=== PATIENT | female | born 1930 | race Caucasian/White ===

== ENCOUNTER → 2016-12-11 | Outpatient (CLI) | payer MEDICARE, BC ==
--- NOTE | 2016-12-11 11:40 | MM ---
Reason for exam: screening (asymptomatic). Last mammogram was performed 1 year and 1 month ago. History: Patient is postmenopausal and has history of endometrial cancer at age 41. Benign excisional biopsy of the right breast. Physical Findings: A clinical breast exam by your physician is recommended on an annual basis and results should be correlated with mammographic findings. MG Screening Mammo w CAD Bilateral CC and MLO view(s) were taken. Prior study comparison: November 21, 2015, bilateral MG screening mammo w CAD. October 04, 2014, bilateral MG screening mammo w CAD. There are scattered fibroglandular densities. Finding: There are typically benign vascular calcifications in both breasts. Asymmetric breast tissue in the right breast posterior position outer quadrant, stable. There is no discrete abnormality. ASSESSMENT: Negative, BI-RAD 1 RECOMMENDATION: Routine screening mammogram of both breasts in 1 year.
== END | disposition home or self-care (01) ==
LOC: RADMAMWWP 10:45
PROVIDERS: ATTEND Internal Medicine
DX: Z12.31 Encounter for screening mammogram for malignant neoplasm of breast (principal)

== ENCOUNTER 2018-01-04 10:05 | Inpatient (IN) | payer MEDICARE, BC ==
[2018-01-04] MEDS ORDERED: SODIUM CHLORIDE 0.9% 500 ML IV STA (10:13)
--- NOTE | 2018-01-04 10:26 | ED ---
General Adult HPI - General Chief complaint: Arrhythmia/Palpitations Stated complaint: Cough, light headed Time Seen by Provider: 01/04/18 10:13 Source: patient, family, RN notes reviewed, old records reviewed Mode of arrival: wheelchair Limitations: no limitations - History of Present Illness Initial comments: 87-year-old female presents for evaluation of lightheadedness and near-syncope. Patient was seen at urgent care, noted to have a high heart rate, and sent to the emergency department for evaluation. Patient does have history of atrial fibrillation, she has had valve repair and history of hypertension. Patient states that she has been feeling lightheaded, for the past several days, she is also had cough productive of white phlegm for the past 2 weeks. She is also had rhinorrhea. She's had subjective fever and chills. No vomiting or diarrhea , she has had decreased appetite and decreased intake over the past 2 weeks as well. - Related Data Home Medications Medication Instructions Recorded Confirmed Lisinopril [Zestril] 10 mg PO DAILY 01/04/18 01/04/18 Metoprolol Succinate [Toprol XL] 25 mg PO BID 01/04/18 01/04/18 Omeprazole 20 mg PO DAILY 01/04/18 01/04/18 Pravastatin Sodium [Pravachol] 40 mg PO DAILY 01/04/18 01/04/18 Promethazine HCl/Codeine 5 ml PO Q8H PRN 01/04/18 01/04/18 [Prometh-Codein 6.25-10 mg/5 ml] Allergies Allergy/AdvReac Type Severity Reaction Status Date / Time No Known Allergies Allergy Verified 01/04/18 11:49 Review of Systems ROS Statement: Those systems with pertinent positive or pertinent negative responses have been documented in the HPI. ROS Other: All systems not noted in ROS Statement are negative. Past Medical History Past Medical History: Atrial Fibrillation History of Any Multi-Drug Resistant Organisms: None Reported Past Psychological History: No Psychological Hx Reported Smoking Status: Former smoker Past Alcohol Use History: None Reported Past Drug Use History: None Reported General Exam Limitations: no limitations General appearance: alert, in no apparent distress Head exam: Present: atraumatic, normocephalic Eye exam: Present: normal appearance, PERRL ENT exam: Present: mucous membranes dry Neck exam: Present: normal inspection. Absent: tenderness, meningismus Respiratory exam: Present: normal lung sounds bilaterally. Absent: respiratory distress, wheezes Cardiovascular Exam: Present: tachycardia, irregular rhythm, systolic murmur GI/Abdominal exam: Present: soft. Absent: distended, tenderness, guarding Extremities exam: Present: normal inspection, normal capillary refill, other ( Left anterior nguyen incision, mild surrounding erythema, no fluctuance or induration). Absent: pedal edema Neurological exam: Present: alert, oriented X3, CN II-XII intact. Absent: motor sensory deficit Psychiatric exam: Present: normal affect, normal mood Skin exam: Present: warm, dry, intact. Absent: cyanosis, diaphoretic Course Vital Signs 01/04/18 01/04/18 01/04/18 10:08 11:24 12:04 Temperature 97.8 F Pulse Rate 132 H 145 H 117 H Respiratory 20 18 18 Rate Blood Pressure 121/75 125/87 145/93 O2 Sat by Pulse 97 99 99 Oximetry EKG Findings - EKG Comments: EKG Findings:: EKG shows atrial fibrillation with RVR, rate of 138, low voltage QRS, no ST segment elevation, QRS duration 78, QTC 463 Medical Decision Making - Medical Decision Making 87-year-old female presenting with palpitations and lightheadedness. Patient found to be in A. fib with RVR, she does have history of atrial fibrillation and is on Coumadin. She has reported some cough and cold symptoms over the past several weeks as well as decreased intake. No significant vomiting or diarrhea. Laboratory studies reveal normal hemoglobin 13.8, white blood cell count normal 8.4, lites within normal limits, creatinine normal. Influenza is negative. INR is supratherapeutic at 5.1, urinalysis clear,, chest x-ray shows bibasilar infiltrate, given the history of cough, she is given IV antibiotics in the emergency department. She is started on Cardizem, Coumadin will be held. Patient will be admitted for further evaluation and treatment. - Lab Data Result diagrams: 01/04/18 10:45 01/04/18 10:45 Lab Results 01/04/18 01/04/18 01/04/18 Range/Units 10:45 10:45 10:45 WBC 8.4 (3.8-10.6) k/uL RBC 5.04 (3.80-5.40) m/uL Hgb 13.9 (11.4-16.0) gm/dL Hct 41.0 (34.0-46.0) % MCV 81.4 (80.0-100.0) fL MCH 27.6 (25.0-35.0) pg MCHC 33.9 (31.0-37.0) g/dL RDW 14.7 (11.5-15.5) % Plt Count 339 (150-450) k/uL Neutrophils % 78 % Lymphocytes % 16 % Monocytes % 4 % Eosinophils % 0 % Basophils % 0 % Neutrophils # 6.5 (1.3-7.7) k/uL Lymphocytes # 1.4 (1.0-4.8) k/uL Monocytes # 0.3 (0-1.0) k/uL Eosinophils # 0.0 (0-0.7) k/uL Basophils # 0.0 (0-0.2) k/uL PT (9.0-12.0) sec INR (<1.2) APTT (22.0-30.0) sec Sodium 142 (137-145) mmol/L Potassium 4.1 (3.5-5.1) mmol/L Chloride 109 H (98-107) mmol/L Carbon Dioxide 23 (22-30) mmol/L Anion Gap 10 mmol/L BUN 26 H (7-17) mg/dL Creatinine 0.80 (0.52-1.04) mg/dL Est GFR (CKD-EPI)AfAm 78 (>60 ml/min/1.73 sqM) Est GFR (CKD-EPI)NonAf 68 (>60 ml/min/1.73 sqM) Glucose 116 H (74-99) mg/dL Plasma Lactic Acid Cristofer (0.7-2.0) mmol/L Calcium 9.3 (8.4-10.2) mg/dL Magnesium 1.6 (1.6-2.3) mg/dL Total Bilirubin 0.4 (0.2-1.3) mg/dL AST 29 (14-36) U/L ALT 30 (9-52) U/L Alkaline Phosphatase 65 (38-126) U/L Total Creatine Kinase 97 (30-135) U/L CK-MB (CK-2) 1.5 (0.0-2.4) ng/mL CK-MB (CK-2) Rel Index 1.5 Troponin I 0.028 (0.000-0.034) ng/mL Total Protein 6.2 L (6.3-8.2) g/dL Albumin 3.6 (3.5-5.0) g/dL TSH 1.400 (0.465-4.680) mIU/L Urine Color Urine Appearance (Clear) Urine pH (5.0-8.0) Ur Specific [place] (1.001-1.035) Urine Protein (Negative) Urine Glucose (UA) (Negative) Urine Ketones (Negative) Urine Blood (Negative) Urine Nitrite (Negative) Urine Bilirubin (Negative) Urine Urobilinogen (<2.0) mg/dL Ur Leukocyte Esterase (Negative) Urine RBC (0-5) /hpf Ur Squamous Epith Cells (0-4) /hpf Urine Bacteria (None) /hpf Hyaline Casts (0-2) /lpf Urine Mucus (None) /hpf Influenza Type A RNA (Not Detectd) Influenza Type B (PCR) (Not Detectd) 01/04/18 01/04/18 01/04/18 Range/Units 10:45 10:45 10:45 WBC (3.8-10.6) k/uL RBC (3.80-5.40) m/uL Hgb (11.4-16.0) gm/dL Hct (34.0-46.0) % MCV (80.0-100.0) fL MCH (25.0-35.0) pg MCHC (31.0-37.0) g/dL RDW (11.5-15.5) % Plt Count (150-450) k/uL Neutrophils % % Lymphocytes % % Monocytes % % Eosinophils % % Basophils % % Neutrophils # (1.3-7.7) k/uL Lymphocytes # (1.0-4.8) k/uL Monocytes # (0-1.0) k/uL Eosinophils # (0-0.7) k/uL Basophils # (0-0.2) k/uL PT 46.0 H (9.0-12.0) sec INR 5.1 H* (<1.2) APTT 34.1 H (22.0-30.0) sec Sodium (137-145) mmol/L Potassium (3.5-5.1) mmol/L Chloride (98-107) mmol/L Carbon Dioxide (22-30) mmol/L Anion Gap mmol/L BUN (7-17) mg/dL Creatinine (0.52-1.04) mg/dL Est GFR (CKD-EPI)AfAm (>60 ml/min/1.73 sqM) Est GFR (CKD-EPI)NonAf (>60 ml/min/1.73 sqM) Glucose (74-99) mg/dL Plasma Lactic Acid Cristofer 1.1 (0.7-2.0) mmol/L Calcium (8.4-10.2) mg/dL Magnesium (1.6-2.3) mg/dL Total Bilirubin (0.2-1.3) mg/dL AST (14-36) U/L ALT (9-52) U/L Alkaline Phosphatase (38-126) U/L Total Creatine Kinase (30-135) U/L CK-MB (CK-2) (0.0-2.4) ng/mL CK-MB (CK-2) Rel Index Troponin I (0.000-0.034) ng/mL Total Protein (6.3-8.2) g/dL Albumin (3.5-5.0) g/dL TSH (0.465-4.680) mIU/L Urine Color Urine Appearance (Clear) Urine pH (5.0-8.0) Ur Specific [place] (1.001-1.035) Urine Protein (Negative) Urine Glucose (UA) (Negative) Urine Ketones (Negative) Urine Blood (Negative) Urine Nitrite (Negative) Urine Bilirubin (Negative) Urine Urobilinogen (<2.0) mg/dL Ur Leukocyte Esterase (Negative) Urine RBC (0-5) /hpf Ur Squamous Epith Cells (0-4) /hpf Urine Bacteria (None) /hpf Hyaline Casts (0-2) /lpf Urine Mucus (None) /hpf Influenza Type A RNA Not Detected (Not Detectd) Influenza Type B (PCR) Not Detected (Not Detectd) 01/04/18 Range/Units 11:15 WBC (3.8-10.6) k/uL RBC (3.80-5.40) m/uL Hgb (11.4-16.0) gm/dL Hct (34.0-46.0) % MCV (80.0-100.0) fL MCH (25.0-35.0) pg MCHC (31.0-37.0) g/dL RDW (11.5-15.5) % Plt Count (150-450) k/uL Neutrophils % % Lymphocytes % % Monocytes % % Eosinophils % % Basophils % % Neutrophils # (1.3-7.7) k/uL Lymphocytes # (1.0-4.8) k/uL Monocytes # (0-1.0) k/uL Eosinophils # (0-0.7) k/uL Basophils # (0-0.2) k/uL PT (9.0-12.0) sec INR (<1.2) APTT (22.0-30.0) sec Sodium (137-145) mmol/L Potassium (3.5-5.1) mmol/L Chloride (98-107) mmol/L Carbon Dioxide (22-30) mmol/L Anion Gap mmol/L BUN (7-17) mg/dL Creatinine (0.52-1.04) mg/dL Est GFR (CKD-EPI)AfAm (>60 ml/min/1.73 sqM) Est GFR (CKD-EPI)NonAf (>60 ml/min/1.73 sqM) Glucose (74-99) mg/dL Plasma Lactic Acid Cristofer (0.7-2.0) mmol/L Calcium (8.4-10.2) mg/dL Magnesium (1.6-2.3) mg/dL Total Bilirubin (0.2-1.3) mg/dL AST (14-36) U/L ALT (9-52) U/L Alkaline Phosphatase (38-126) U/L Total Creatine Kinase (30-135) U/L CK-MB (CK-2) (0.0-2.4) ng/mL CK-MB (CK-2) Rel Index Troponin I (0.000-0.034) ng/mL Total Protein (6.3-8.2) g/dL Albumin (3.5-5.0) g/dL TSH (0.465-4.680) mIU/L Urine Color Yellow Urine Appearance Cloudy H (Clear) Urine pH 5.5 (5.0-8.0) Ur Specific [place] 1.022 (1.001-1.035) Urine Protein 1+ H (Negative) Urine Glucose (UA) Negative (Negative) Urine Ketones Negative (Negative) Urine Blood Trace H (Negative) Urine Nitrite Negative (Negative) Urine Bilirubin Negative (Negative) Urine Urobilinogen 2.0 (<2.0) mg/dL Ur Leukocyte Esterase Small H (Negative) Urine RBC 4 (0-5) /hpf Ur Squamous Epith Cells 2 (0-4) /hpf Urine Bacteria Rare H (None) /hpf Hyaline Casts 34 H (0-2) /lpf Urine Mucus Many H (None) /hpf Influenza Type A RNA (Not Detectd) Influenza Type B (PCR) (Not Detectd) Critical Care Time Critical Care Time: Yes Total Critical Care Time: 35 Disposition Clinical Impression: Atrial fibrillation with RVR Disposition: ADMITTED IP TO THIS [facility] Condition: Stable Referrals: Barbara Rogers MD [Primary Care Provider] - 1-2 days Decision to Admit Reason: Admit from EC Decision Date: 01/04/18 Decision Time: 12:09
[2018-01-04 10:57] LABS: Basophils % (A) 0 %; HGB 13.9 gm/dL (11.4-16.0); Lymphocytes # (A) 1.4 k/uL (1.0-4.8)
[2018-01-04 11:08] LABS: Eosinophils % (A) 0 %; Lymphocytes % (A) 16 %; MCH 27.6 pg (25.0-35.0); MCHC 33.9 g/dL (31.0-37.0); MCV 81.4 fL (80.0-100.0); Mean Platelet Volume 6.3; Monocytes # (A) 0.3 k/uL (0-1.0); Monocytes % (A) 4 %; Neutrophils # (A) 6.5 k/uL (1.3-7.7); Neutrophils % (A) 78 %; Platelet Count 339 k/uL (150-450); RBC 5.04 m/uL (3.80-5.40); RDW 14.7 % (11.5-15.5); WBC 8.4 k/uL (3.8-10.6)
[2018-01-04 11:09] LABS: Albumin 3.6 g/dL (3.5-5.0); Calcium 9.3 mg/dL (8.4-10.2); Magnesium 1.6 mg/dL (1.6-2.3); Potassium 4.1 mmol/L (3.5-5.1); Total Bilirubin 0.4 mg/dL (0.2-1.3); Total Protein 6.2 g/dL (6.3-8.2)
[2018-01-04] MEDS ORDERED: DILTIAZEM 50 MG in SODIUM CHLORIDE 0.9% 40 ML IV ONE (11:15)
--- NOTE | 2018-01-04 11:18 | XR ---
EXAMINATION TYPE: XR chest 2V DATE OF EXAM: 01/04/2018 COMPARISON: Chest x-ray April 22, 2012 HISTORY: Dysrhythmia. TECHNIQUE: Frontal and lateral views of the chest are obtained. FINDINGS: There is chronic parenchymal change with new patchy left greater than right bibasilar atel ectasis and/or infiltrate. No large pleural effusion or pneumothorax is seen bilaterally. The cardiac silhouette size is enlarged with atherosclerotic and slightly ectatic thoracic aorta. Overlying heide rnal wires are redemonstrated. There is metallic cardiac valvular ring again seen. The osseous struct ures remain demineralized. IMPRESSION: Cardiomegaly and chronic changes with new patchy bibasilar atelectasis and/or infiltrate .
[2018-01-04] MEDS: SODIUM CHLORIDE 0.9% 1,000 ML IV SCH (11:22)
[2018-01-04] MEDS: DILTIAZEM 5 MG/ML 5 ML VIAL IVP STA ×2 (11:24→12:01)
[2018-01-04 11:29] LABS: Creatine Kinase MB 1.5 ng/mL (0.0-2.4); Troponin I 0.028 ng/mL (0.000-0.034)
[2018-01-04 11:29] LABS: Appearance,Urine Cloudy (Clear); Bacteria,Urine Rare /hpf; Bilirubin,Urine Negative (Negative); Blood,Urine Trace (Negative); Color,Urine Yellow; Glucose,Urine (UA) Negative (Negative); Hyaline Casts,Urine 34 /lpf (0-2); Ketones,Urine Negative (Negative); Leukocyte Esterase,Urine Small (Negative); Mucus,Urine Many /hpf; Nitrite,Urine Negative (Negative); PH, Urine 5.5 (5.0-8.0); Protein,Urine 1+ (Negative); RBC,Urine 4 /hpf (0-5); Specific Gravity,Urine 1.022 (1.001-1.035); Squamous Epithelial Cell,Urine 2 /hpf (0-4)
[2018-01-04] MEDS ORDERED: DILTIAZEM IV ONE (11:30)
[2018-01-04] MEDS ORDERED: SODIUM CHLORIDE 0.9% IV ONE (11:30)
[2018-01-04 11:34] LABS: Partial Thromboplastin Time 34.1 sec (22.0-30.0)
[2018-01-04 11:35] LABS: INR 5.1 (<1.2)
[2018-01-04] MEDS ORDERED: CEFEPIME 2 GM in SODIUM CHLORIDE 0.9% 50 ML IVPB STA (11:46)
[2018-01-04] MEDS ORDERED: AZITHROMYCIN 500 MG in SODIUM CHLORIDE 0.9% 250 ML IVPB STA (11:46)
[2018-01-04] MEDS ORDERED: NALOXONE 0.4 MG/ML 1 ML VIAL IV PRN (12:04)
[2018-01-04] MEDS ORDERED: METOPROLOL SUCCINATE (ER) 25 MG TAB.ER.24H PO STA (14:20)
[2018-01-04 19:56] VITALS: BMI 23.6
[2018-01-04] MEDS: METOPROLOL SUCCINATE (ER) 25 MG TAB.ER.24H PO SCH (21:17)
[2018-01-05] MEDS: SODIUM CHLORIDE 0.9% 1,000 ML IV SCH (00:54)
[2018-01-05 06:34] LABS: Basophils # (A) 0.1 k/uL (0-0.2); Basophils % (A) 1 %; Eosinophils # (A) 0.2 k/uL (0-0.7); Eosinophils % (A) 3 %; HCT 39.2 % (34.0-46.0); HGB 13.2 gm/dL (11.4-16.0); Lymphocytes # (A) 1.8 k/uL (1.0-4.8); Lymphocytes % (A) 23 %; MCH 27.6 pg (25.0-35.0); MCHC 33.7 g/dL (31.0-37.0); MCV 81.8 fL (80.0-100.0); Mean Platelet Volume 6.1; Monocytes # (A) 0.4 k/uL (0-1.0); Monocytes % (A) 5 %; Neutrophils # (A) 5.2 k/uL (1.3-7.7); Neutrophils % (A) 67 %; Platelet Count 284 k/uL (150-450); RBC 4.79 m/uL (3.80-5.40); RDW 14.8 % (11.5-15.5); WBC 7.7 k/uL (3.8-10.6)
[2018-01-05 06:36] LABS: INR 3.7 (<1.2); Prothrombin Time 32.9 sec (9.0-12.0)
[2018-01-05 07:08] LABS: ALT 26 U/L (9-52); AST 27 U/L (14-36); Albumin 3.2 g/dL (3.5-5.0); Alkaline Phosphatase 61 U/L (38-126); Anion Gap 6 mmol/L; Blood Urea Nitrogen 18 mg/dL (7-17); Calcium 8.7 mg/dL (8.4-10.2); Carbon Dioxide 25 mmol/L (22-30); Chloride 108 mmol/L (98-107); Glucose 101 mg/dL (74-99); Sodium 139 mmol/L (137-145); Total Bilirubin 0.5 mg/dL (0.2-1.3); Total Protein 5.7 g/dL (6.3-8.2)
--- NOTE | 2018-01-05 09:44 | P.CRDCN ---
History of Present Illness History of present illness: Patient is an 87-year-old very pleasant lady who did not feel right yesterday and was very dizzy. She did not feel palpitations chest pain and denied shortness of breath at that time. She was found to be in atrial fibrillation with RVR Past history of atrial fibrillation, valve repair, hypertension Mild bronchitis like symptoms recently and rhinorrhea Review of systems: + fever chills or rigors, no cough, phlegm or expectoration, no nausea, vomiting or diarrhea, no hematuria, dysuria, no musculoskeletal complaints, no strokes or seizures, no skin lesions. Dictation list was reviewed and includes metoprolol succinate 25 mg twice daily lisinopril Pravachol NO KNOWN DRUG ALLERGIES Past medical history of atrial fibrillation On examination her blood pressure is normal 121/75 mmHg pulse rate was 132 beats a minute 145 beats a minute and twelve-lead ECG confirmed atrial fibrillation with RVR Respirations are normal at this time but pressure is 156/94 minutes of mercury she is afebrile And neck examination is normal no JVD no thyromegaly Heart sounds S1 and S2 are normal Sounds are clear no rhonchi no crackles Abdomen is soft nontender Extremities warm no edema Twelve-lead ECG shows atrial fibrillation with RVR 1:30 beats a minute Labs are reviewed. Hemoglobin 13.2, INR 5.1 today 3.7 electrolytes are normal BUN/creatinine is normal him a TSH normal Impression Symptomatic paroxysmal atrial fibrillation with RVR despite beta rick therapy , total of 50 mg a day of Toprol Suggest increase to 50 mrem twice daily and observe on telemetry If she has no evidence for coronary artery disease in the past and has stresses was normal one could consider treating her with flecainide because she was very symptomatic and was presyncopal Past Medical History Past Medical History: Atrial Fibrillation History of Any Multi-Drug Resistant Organisms: None Reported Additional Past Surgical History / Comment(s): Valve repair Dec 13, 2015 Past Psychological History: No Psychological Hx Reported Smoking Status: Never smoker Past Alcohol Use History: None Reported Past Drug Use History: None Reported Medications and Allergies Home Medications Medication Instructions Recorded Confirmed Type Lisinopril [Zestril] 10 mg PO DAILY 01/04/18 01/04/18 History Metoprolol Succinate [Toprol XL] 25 mg PO BID 01/04/18 01/04/18 History Omeprazole 20 mg PO DAILY 01/04/18 01/04/18 History Pravastatin Sodium [Pravachol] 40 mg PO DAILY 01/04/18 01/04/18 History Promethazine HCl/Codeine 5 ml PO Q8H PRN 01/04/18 01/04/18 History [Prometh-Codein 6.25-10 mg/5 ml] Allergies Allergy/AdvReac Type Severity Reaction Status Date / Time No Known Allergies Allergy Verified 01/04/18 11:49 Physical Exam Vitals: Vital Signs Temp Pulse Pulse Resp BP BP Pulse Ox 01/05/18 04:00 84 16 156/94 92 L 01/05/18 00:00 97.2 F L 75 16 158/90 94 L 01/04/18 20:00 93 18 01/04/18 18:55 97.1 F L 93 18 137/88 94 L 01/04/18 18:26 97.7 F 78 18 133/70 94 L 01/04/18 16:04 82 18 137/76 95 01/04/18 14:17 94 18 144/88 99 01/04/18 13:10 97.7 F 127 H 18 139/96 95 01/04/18 12:04 117 H 18 145/93 99 01/04/18 11:24 145 H 18 125/87 99 01/04/18 10:08 97.8 F 132 H 20 121/75 97 Intake and Output 01/04/18 01/05/18 01/05/18 21:59 06:59 14:59 Intake Total Balance Intake: Intake, IV Titration Amount Sodium Chloride 0.9% 1, 000 ml @ 75 mls/hr IV . [id number] [facility] Rx#:[id number] Oral Other: Weight Results 01/05/18 05:58 01/05/18 05:58 Cardiac Enzymes 01/04/18 01/04/18 01/05/18 Range/Units 10:45 10:45 05:58 AST 29 27 (14-36) U/L CK-MB (CK-2) 1.5 (0.0-2.4) ng/mL Troponin I 0.028 (0.000-0.034) ng/mL Coagulation 01/04/18 01/05/18 Range/Units 10:45 05:58 PT 46.0 H 32.9 H (9.0-12.0) sec APTT 34.1 H (22.0-30.0) sec CBC 01/04/18 01/05/18 Range/Units 10:45 05:58 WBC 8.4 7.7 (3.8-10.6) k/uL RBC 5.04 4.79 (3.80-5.40) m/uL Hgb 13.9 13.2 (11.4-16.0) gm/dL Hct 41.0 39.2 (34.0-46.0) % Plt Count 339 284 (150-450) k/uL Comprehensive Metabolic Panel 01/04/18 01/05/18 Range/Units 10:45 05:58 Sodium 142 139 (137-145) mmol/L Potassium 4.1 4.0 (3.5-5.1) mmol/L Chloride 109 H 108 H (98-107) mmol/L Carbon Dioxide 23 25 (22-30) mmol/L BUN 26 H 18 H (7-17) mg/dL Creatinine 0.80 0.70 (0.52-1.04) mg/dL Glucose 116 H 101 H (74-99) mg/dL Calcium 9.3 8.7 (8.4-10.2) mg/dL AST 29 27 (14-36) U/L ALT 30 26 (9-52) U/L Alkaline Phosphatase 65 61 (38-126) U/L Total Protein 6.2 L 5.7 L (6.3-8.2) g/dL Albumin 3.6 3.2 L (3.5-5.0) g/dL Current Medications Generic Name Dose Route Start Last Admin Trade Name Freq PRN Reason Stop Dose Admin Sodium Chloride 1,000 mls @ 75 mls/hr 01/04/18 10:45 01/05/18 00:54 Saline 0.9% IV Not Given .[id number] NELL Metoprolol Succinate 25 mg 01/04/18 21:00 01/04/18 21:17 Toprol Xl PO 25 mg BID NELL Administration Naloxone HCl 0.2 mg 01/04/18 12:04 Narcan IV Q2M PRN Opioid Reversal Pravastatin Sodium 40 mg 01/05/18 09:00 Pravachol PO DAILY NELL Intake and Output 01/04/18 01/05/18 01/05/18 21:59 06:59 14:59 Intake Total Balance Intake: Intake, IV Titration Amount Sodium Chloride 0.9% 1, 000 ml @ 75 mls/hr IV . [id number] [facility] Rx#:[id number] Oral Other: Weight 01/05/18 05:58 01/05/18 05:58
[2018-01-05] MEDS: PRAVASTATIN SODIUM 40 MG TAB PO SCH (09:57)
--- NOTE | 2018-01-05 10:57 | P.HPIM ---
History of Present Illness H&P Date: 01/05/18 Jose Ann a 87-year-old female who presented to [facility] emergency room with a chief complaint of lightheadedness and near- syncope. Patient was seen at urgent care, noted to have a high heart rate, and was sent to the emergency department for evaluation. Patient does have history of atrial fibrillation, she has had valve repair she is unaware which valve it was, she stated that surgery was done at this hospital [address] Gigi Lima she states that she had a stress test prior to surgery. Patient had an upper respiratory infection 2 weeks ago she was complaining of cough and nasal and sinus congestion, she denies any nausea or vomiting no abdominal pain no diarrhea and no urinary symptoms. Past Medical History Past Medical History: Atrial Fibrillation History of Any Multi-Drug Resistant Organisms: None Reported Additional Past Surgical History / Comment(s): Valve repair Dec 13, 2015 Past Psychological History: No Psychological Hx Reported Smoking Status: Never smoker Past Alcohol Use History: None Reported Past Drug Use History: None Reported Medications and Allergies Home Medications Medication Instructions Recorded Confirmed Type Lisinopril [Zestril] 10 mg PO DAILY 01/04/18 01/04/18 History Metoprolol Succinate [Toprol XL] 25 mg PO BID 01/04/18 01/04/18 History Omeprazole 20 mg PO DAILY 01/04/18 01/04/18 History Pravastatin Sodium [Pravachol] 40 mg PO DAILY 01/04/18 01/04/18 History Promethazine HCl/Codeine 5 ml PO Q8H PRN 01/04/18 01/04/18 History [Prometh-Codein 6.25-10 mg/5 ml] Allergies Allergy/AdvReac Type Severity Reaction Status Date / Time No Known Allergies Allergy Verified 01/04/18 11:49 Physical Exam Vitals: Vital Signs Temp Pulse Pulse Resp BP BP Pulse Ox 01/05/18 04:00 84 16 156/94 92 L 01/05/18 00:00 97.2 F L 75 16 158/90 94 L 01/04/18 20:00 93 18 01/04/18 18:55 97.1 F L 93 18 137/88 94 L 01/04/18 18:26 97.7 F 78 18 133/70 94 L 01/04/18 16:04 82 18 137/76 95 03/10/18 14:17 94 18 144/88 99 01/04/18 13:10 97.7 F 127 H 18 139/96 95 01/04/18 12:04 117 H 18 145/93 99 01/04/18 11:24 145 H 18 125/87 99 01/04/18 10:08 97.8 F 132 H 20 121/75 97 Intake and Output 01/04/18 01/05/18 01/05/18 21:59 06:59 14:59 Intake Total Balance Intake: Intake, IV Titration Amount Sodium Chloride 0.9% 1, 000 ml @ 75 mls/hr IV . [id number] [facility] Rx#:[id number] Oral Other: Weight In general patient is alert and oriented 3 in no apparent distress HEENT head normocephalic and atraumatic Neck is supple no JVD no goiter no lymphadenopathy Chest exam reveals a few scattered crackles no wheezing Cardiac exam reveals regular heart sounds S1 and S2 no gallops no murmurs Abdomen is soft nontender no organomegaly Extremity exam reveals no edema no cyanosis or clubbing Neurological examination reveals no gross focal deficits Results CBC & Chem 7: 01/05/18 05:58 01/05/18 05:58 Labs: Abnormal Lab Results - Last 24 Hours (Table) 01/04/18 01/04/18 01/04/18 Range/Units 10:45 10:45 11:15 PT 46.0 H (9.0-12.0) sec INR 5.1 H* (<1.2) APTT 34.1 H (22.0-30.0) sec Chloride 109 H (98-107) mmol/L BUN 26 H (7-17) mg/dL Glucose 116 H (74-99) mg/dL Total Protein 6.2 L (6.3-8.2) g/dL Albumin (3.5-5.0) g/dL Urine Appearance Cloudy H (Clear) Urine Protein 1+ H (Negative) Urine Blood Trace H (Negative) Ur Leukocyte Esterase Small H (Negative) Urine Bacteria Rare H (None) /hpf Hyaline Casts 34 H (0-2) /lpf Urine Mucus Many H (None) /hpf 01/05/18 01/05/18 Range/Units 05:58 05:58 PT 32.9 H (9.0-12.0) sec INR 3.7 H (<1.2) APTT (22.0-30.0) sec Chloride 108 H (98-107) mmol/L BUN 18 H (7-17) mg/dL Glucose 101 H (74-99) mg/dL Total Protein 5.7 L (6.3-8.2) g/dL Albumin 3.2 L (3.5-5.0) g/dL Urine Appearance (Clear) Urine Protein (Negative) Urine Blood (Negative) Ur Leukocyte Esterase (Negative) Urine Bacteria (None) /hpf Hyaline Casts (0-2) /lpf Urine Mucus (None) /hpf Thrombosis Risk Factor Assmnt - Choose All That Apply Any of the Below Risk Factors Present?: No Assessment and Plan Plan: #1 atrial fibrillation with rapid ventricular response #2 dizziness and lightheadedness with presyncope probably related to #1 #3 history of valve repair surgery done in this hospital [address] Gigi Lima per patient and fortunately records are not available in the computer system will try to obtain records. #4 no history of coronary artery disease per patient, her last stress test was done 6 years ago prior to her valve surgery #5 history of hypertension #6 history of hyperlipidemia #7 coagulopathy with Coumadin therapy will adjust Coumadin dose during this admission #8 recent upper respiratory infection
[2018-01-05] MEDS: PANTOPRAZOLE 40 MG TABLET PO SCH (12:49)
[2018-01-05] MEDS: cefTRIAXone IN SWFI 1,000 MG/10 ML SYRINGE IVP SCH (12:49)
[2018-01-05] MEDS: LISINOPRIL 10 MG TAB PO SCH (12:49)
[2018-01-05] MEDS: AZITHROMYCIN 500 MG in SODIUM CHLORIDE 0.9% 250 ML IVPB SCH (14:47)
[2018-01-05] MEDS: METOPROLOL SUCCINATE (ER) 50 MG TAB.ER.24H PO SCH (19:38)
[2018-01-06] MEDS ORDERED: LISINOPRIL 5 MG TAB PO STA (00:06)
[2018-01-06] MEDS: METOPROLOL SUCCINATE (ER) 25 MG TAB.ER.24H PO SCH (04:25)
[2018-01-06 06:16] LABS: Basophils % (A) 1 %; Eosinophils # (A) 0.3 k/uL (0-0.7); Eosinophils % (A) 4 %; HCT 42.6 % (34.0-46.0); HGB 14.1 gm/dL (11.4-16.0); Lymphocytes # (A) 1.7 k/uL (1.0-4.8); Lymphocytes % (A) 24 %; MCH 27.1 pg (25.0-35.0); MCHC 33.1 g/dL (31.0-37.0); MCV 81.8 fL (80.0-100.0); Mean Platelet Volume 6.2; Monocytes # (A) 0.4 k/uL (0-1.0); Monocytes % (A) 6 %; Neutrophils # (A) 4.6 k/uL (1.3-7.7); Neutrophils % (A) 65 %; Platelet Count 297 k/uL (150-450); RBC 5.21 m/uL (3.80-5.40); RDW 14.6 % (11.5-15.5); WBC 7.1 k/uL (3.8-10.6)
[2018-01-06 06:23] LABS: INR 2.2 (<1.2); Prothrombin Time 19.6 sec (9.0-12.0)
[2018-01-06 06:32] LABS: Albumin 3.2 g/dL (3.5-5.0); Calcium 8.9 mg/dL (8.4-10.2); Potassium 4.5 mmol/L (3.5-5.1); Total Bilirubin 0.4 mg/dL (0.2-1.3); Total Protein 5.8 g/dL (6.3-8.2)
[2018-01-06] MEDS: PANTOPRAZOLE 40 MG TABLET PO SCH (06:45)
[2018-01-06] MEDS: PRAVASTATIN SODIUM 40 MG TAB PO SCH (08:37)
[2018-01-06] MEDS: LISINOPRIL 10 MG TAB PO SCH (08:37)
[2018-01-06] MEDS: METOPROLOL SUCCINATE (ER) 50 MG TAB.ER.24H PO SCH (08:37)
[2018-01-06] MEDS: cefTRIAXone IN SWFI 1,000 MG/10 ML SYRINGE IVP SCH (08:46)
[2018-01-06] MEDS: AZITHROMYCIN 500 MG in SODIUM CHLORIDE 0.9% 250 ML IVPB SCH (08:46)
[2018-01-06 10:56] VITALS: RESP 18
--- NOTE | 2018-01-06 13:17 | P.DS ---
Providers Date of admission: 01/04/18 12:04 Expected date of discharge: 01/06/18 Attending physician: Barbara Rogers Consults: 01/04/18 13:24 Consult Physician Routine Consulting Provider: Justen Leal Consult Reason/Comments: A Fib Do you want consulting provider notified?: Yes Primary care physician: [facility] Course: Discharge diagnosis #1 atrial fibrillation with rapid ventricular response: Seen evaluated by cardiology. They have increased her metoprolol to 50 mg twice a day. Continue with Coumadin. Coumadin dose adjusted during this admission due to coagulopathy. INR at discharge is 2.2. Will give Coumadin 2.5 mg daily. Recommend checking PT/INR in 3 days #2 dizziness and lightheadedness with presyncope probably related to #1 #3 history of valve repair surgery done in this hospital [address] Gigi Lima per patient and fortunately records are not available in the computer system will try to obtain records. #4 no history of coronary artery disease per patient, her last stress test was done 6 years ago prior to her valve surgery #5 history of hypertension #6 history of hyperlipidemia #7 coagulopathy with Coumadin therapy will adjust Coumadin dose during this admission #8 possible community-acquired pneumonia: Patient's symptoms improving with Rocephin and azithromycin. Patient will be discharged home with Ceftin 500 mg twice a day for 5 more days Hospital course Jose Ann a 87-year-old female who presented to [facility] emergency room with a chief complaint of lightheadedness and near- syncope. Patient was seen at urgent care, noted to have a high heart rate, and was sent to the emergency department for evaluation. Patient does have history of atrial fibrillation, she has had valve repair she is unaware which valve it was, she stated that surgery was done at this hospital [address] Gigi Lima she states that she had a stress test prior to surgery. Patient had an upper respiratory infection 2 weeks ago she was complaining of cough and nasal and sinus congestion, she denies any nausea or vomiting no abdominal pain no diarrhea and no urinary symptoms. Patient was initially placed on IV Cardizem drip. Patient seen evaluated by cardiology. They discontinue Cardizem drip and place patient on metoprolol 50 mg twice a day. Patient is currently in sinus rhythm. Heart rate is controlled. Cardiology has seen evaluated patient this morning and cleared her for discharge. Patient will continue Ceftin for possible pneumonia. Her cough and symptoms improved. Her influenza screen was negative. Patient is medical stable for discharge and his been cleared by cardiology for discharge. She has been up and ambulating without any dizziness or lightheadedness. I performed an examination of the patient and discussed their management with the physician Pay Station Department Manager. I have reviewed the Physician Pay Station Department Manager's notes and agree with the documented findings and plan of care Patient Condition at Discharge: Stable Plan - Discharge Summary Discharge Rx Participant: Yes New Discharge Prescriptions: New Cefuroxime Axetil [Ceftin] 500 mg PO BID #10 tab Metoprolol Succinate (ER) [Toprol XL] 50 mg PO BID #60 tab.er.24h Warfarin Sodium [Coumadin] 2.5 mg PO DAILY #30 tablet Continue Pravastatin Sodium [Pravachol] 40 mg PO DAILY Omeprazole 20 mg PO DAILY Lisinopril [Zestril] 10 mg PO DAILY Promethazine HCl/Codeine [Prometh-Codein 6.25-10 mg/5 ml] 5 ml PO Q8H PRN PRN Reason: Cough Discontinued Metoprolol Succinate [Toprol XL] 25 mg PO BID Discharge Medication List Lisinopril [Zestril] 10 mg PO DAILY 01/04/18 [History] Omeprazole 20 mg PO DAILY 01/04/18 [History] Pravastatin Sodium [Pravachol] 40 mg PO DAILY 01/04/18 [History] Promethazine HCl/Codeine [Prometh-Codein 6.25-10 mg/5 ml] 5 ml PO Q8H PRN [History] Cefuroxime Axetil [Ceftin] 500 mg PO BID #10 tab 01/06/18 [Rx] Metoprolol Succinate (ER) [Toprol XL] 50 mg PO BID #60 tab.er.24h 01/06/18 [Rx] Warfarin Sodium [Coumadin] 2.5 mg PO DAILY #30 tablet 01/06/18 [Rx] Follow up Appointment(s)/Referral(s): Justen Leal MD [STAFF PHYSICIAN] - 01/23/18 11:00 am (Please keep previous appointment.) Barbara Rogers MD [Primary Care Provider] - 01/10/18 10:30 am Patient Instructions/Handouts: A-fib (Atrial Fibrillation) (DC), Upper Respiratory Infection (DC), Vitamin K in Foods (DC), Hypomagnesemia (DC), Safe Use of Anticoagulants (DC) Activity/Diet/Wound Care/Special Instructions: Diet: cardiac Activity: as tolerated Discharge Disposition: HOME SELF-CARE
--- NOTE | 2018-01-06 14:09 | P.PN ---
Subjective Patient is doing well. She maintains sinus rhythm. She has no symptoms of chest pain dizziness or lightheadedness. She is ambulating around the room She is afebrile 98.3F, blood pressure 125/91 mmHg pulse in the 70s and 80s Breath sounds are clear no rhonchi no crackles Heart sounds S1 and S2 are normal no murmurs or gallops or rub Extremities is warm no edema Impression Paroxysmal atrial fibrillation with RVR, symptomatic 1 episode Suggest continue current medications for now if this becomes recurrent and antiarrhythmic therapy may be considered Objective - Vital Signs Vital signs: Vital Signs Temp 98.3 F 01/06/18 08:20 Pulse 84 01/06/18 08:20 Resp 18 01/06/18 08:20 BP 125/91 01/06/18 08:20 Pulse Ox 92 L 01/06/18 08:20 Intake & Output 01/05/18 01/06/18 01/06/18 18:59 06:59 18:59 Intake Total 720 200 360 Balance 720 200 360 Weight 65.1 kg Intake: Oral 720 200 360 Other: # Voids 2 2 2 - Labs CBC & Chem 7: 01/06/18 05:39 01/06/18 05:39 Labs: Abnormal Lab Results - Last 24 Hours (Table) 01/06/18 01/06/18 Range/Units 05:39 05:39 PT 19.6 H (9.0-12.0) sec INR 2.2 H (<1.2) BUN 21 H (7-17) mg/dL Glucose 100 H (74-99) mg/dL Total Protein 5.8 L (6.3-8.2) g/dL Albumin 3.2 L (3.5-5.0) g/dL Microbiology - Last 24 Hours (Table) 01/04/18 10:45 Blood Culture - Preliminary Blood No Growth after 48 hours
[2018-01-06 14:29] VITALS: BP 174/96; PULSE 79; TEMP 97.2
[2018-01-07] MEDS ORDERED: AZITHROMYCIN 500 MG TAB PO SCH (09:00)
== END 2018-01-06 14:25 | disposition home or self-care (01) | DRG 308 ==
LOC: EC 10:05 → 6SEL 12:04
PROVIDERS: ADMIT Internal Medicine; ATTEND Internal Medicine
DX: I48.0 Paroxysmal atrial fibrillation (principal); J18.9 Pneumonia, unspecified organism; E78.5 Hyperlipidemia, unspecified; I10 Essential (primary) hypertension; R79.1 Abnormal coagulation profile; Z79.01 Long term (current) use of anticoagulants; Z79.899 Other long term (current) drug therapy; Z87.891 Personal history of nicotine dependence
CPT/HCPCS: 36415; 71046; 80053; 81001; 82550; 82553; 83605; 83735; 84443; 84484; 85025; 85610; 85730; 87040; 87502; 93005; 96361; 96365; 96366; 96367; 96376; 99291

== ENCOUNTER → 2018-07-22 | Outpatient (CLI) | payer MEDICARE, BC ==
[2018-07-22 12:14] LABS: Prothrombin Time 45.2 sec (9.0-12.0)
== END ==
LOC: LABWHC1 11:04
PROVIDERS: ATTEND Internal Medicine Cardiovascular Disease
DX: I48.0 Paroxysmal atrial fibrillation (principal)
CPT/HCPCS: 36415; 85610

== ENCOUNTER 2019-02-02 10:10 | Inpatient (IN) | payer MEDICARE, BC ==
--- NOTE | 2019-02-02 11:06 | ED ---
Fever HPI - General Chief Complaint: Fever Stated Complaint: CHRISTA Time Seen by Provider: 02/02/19 10:42 Source: patient, family Mode of arrival: ambulatory Limitations: no limitations - History of Present Illness Initial Comments: 88yo female with past history of hyperlipidemia, atrial fibrillation, hypertension presenting for fever cough, shortness of breath. Patient states she has had congestion and cough since Saturday. She states she is short of b reath when she coughs, patient also states with walking longer distances she also becomes lightheaded and slightly short of breath. Patient states she developed a fever yesterday as well as chills and decreased energy. Patient states she has had pneumonia in the past and this feels similar. Patient denies any diarrhea vomiting leg swelling chest pain she denies shortness of breath at rest, back pain, nausea, numbness/tingling, abdominal pain dysuria urgency frequency hematuria, headache, dizziness, neck stiffness. Remaining ROS (-). Upon arrival pt appears nontoxic. Febrile 100.7F, as pt felt warm I retook temperature to confirm accuracy. Pt last dose of Tylenol last night. No medications this morning. - Related Data Home Medications Medication Instructions Recorded Confirmed Lisinopril [Zestril] 10 mg PO DAILY 01/04/18 02/02/19 Omeprazole 20 mg PO DAILY 01/04/18 02/02/19 Pravastatin Sodium [Pravachol] 40 mg PO DAILY 01/04/18 02/02/19 Warfarin [Coumadin] 2.5 mg PO SUTUTHSA 02/02/19 02/02/19 Warfarin [Coumadin] 5 mg PO MOWEFR 02/02/19 02/02/19 Previous Rx's Medication Instructions Recorded Metoprolol Succinate (ER) [Toprol 50 mg PO BID #60 tab.er.24h 01/06/18 XL] Allergies Allergy/AdvReac Type Severity Reaction Status Date / Time No Known Allergies Allergy Verified 02/02/19 11:05 Review of Systems ROS Statement: Those systems with pertinent positive or pertinent negative responses have been documented in the HPI. ROS Other: All systems not noted in ROS Statement are negative. Past Medical History Past Medical History: Atrial Fibrillation, GERD/Reflux, Hyperlipidemia, Hypertension History of Any Multi-Drug Resistant Organisms: None Reported Additional Past Surgical History / Comment(s): Valve repair Dec 13, 2015 Past Psychological History: No Psychological Hx Reported Smoking Status: Never smoker Past Alcohol Use History: None Reported Past Drug Use History: None Reported - Past Family History Father Family Medical History: Cancer Additional Family Medical History / Comment(s): Father of pancreatic cancer at the age of 53 yrs. Mother Family Medical History: AFIB, Diabetes Mellitus Additional Family Medical History / Comment(s): Mother lived to be 80yrs old. General Exam - General Exam Comments Initial Comments: General: The patient is awake and alert, in no distress. Eye: +3 mm pupils are equal, round and reactive to light, extra-ocular mov ements are intact. No nystagmus. There is normal conjunctiva bilaterally. No signs of icterus. No photophobia Ears, nose, mouth and throat: There are moist mucous membranes and no oral lesions. Oropharynx was not erythematous there is no tonsillar enlargement exudates or lesions. Uvula midline. Tympanic membranes are not erythematous or is no effusions bulging or retraction. No tenderness to palpation of the mastoid. No anterior cervical lymphadenopathy. Rhinorrhea, clear and bilateral nares. No tripoding, no drooling. Neck: The neck is supple, there is no tenderness or JVD. No nuchal rigidity negative. Cardiovascular: There is a regular rate and rhythm. No murmur, rub or gallop is appreciated. Respiratory: Lungs are clear to auscultation, respirations are non-labored, breath sounds are equal. No wheezes, stridor, rales, or rhonchi. No retractions or abdominal breathing. Gastrointestinal: Soft, non-distended, non-tender abdomen without masses or organomegaly noted. There is no rebound or guarding present. Bowel sounds are unremarkable. Musculoskeletal: Normal ROM, no tenderness. Strength 5/5. Sensation intact. Radial pulses equal bilaterally 2+. Neurological: A&O x 3. CN II-XII intact, There are no obvious motor or sensory deficits. Coordination appears grossly intact. Speech appears normal, no muffling. Skin: Skin is warm and dry and no rashes or lesions are noted. No extremity edema Psychiatric: Cooperative Limitations: no limitations Course Vital Signs 02/02/19 02/02/19 02/02/19 10:34 11:16 12:30 Temperature 100.0 F H Pulse Rate 66 77 Respiratory 20 20 18 Rate Blood Pressure 139/85 143/81 O2 Sat by Pulse 94 L 92 L Oximetry 02/02/19 02/02/19 02/02/19 13:00 13:30 14:00 Temperature Pulse Rate 86 85 75 Respiratory 18 24 20 Rate Blood Pressure 154/112 121/68 124/76 O2 Sat by Pulse 94 L 92 L 95 Oximetry 02/02/19 02/02/19 02/02/19 14:30 15:00 15:30 Temperature 100.8 F H Pulse Rate 82 80 83 Respiratory 18 16 17 Rate Blood Pressure 133/86 133/98 120/65 O2 Sat by Pulse 94 L 92 L 92 L Oximetry Medical Decision Making - Medical Decision Making 88-year-old female presented for fever cough congestion. Patient states she shortness of breath with cough. Denies shortness breath and absence of cough. Patient appears well, vital signs of hypoxia. No elevation of heart rate. Patient is febrile upon arrival. Patient provided Tylenol. In fluids a positive. Chest x-ray negative for focal consolidation concerning for pneumonia. Lungs are clear to auscultation. Pt feels generalized weakness and has decreased oral intake at home. Pt will be admitted given advanced age with influenza, and generalized weakness. Pt prefers admission. Pt troponin WNL. No leukocytosis. Patient appears nontoxic no evidence of sepsis at this time. I talked to attending provider Dr. Logan who is agreeable with patient admission for iv fluids and observation. Dr. Logan spoke with Dr Rogers who accepted admission. Evaluated by his UNIT EDUCATOR in ER will resume further care. No additional orders at this time. - Lab Data Result diagrams: 02/02/19 11:31 02/02/19 11:31 Lab Results 02/02/19 02/02/19 02/02/19 Range/Units 11:14 11:31 11:31 WBC 6.5 (3.8-10.6) k/uL RBC 4.98 (3.80-5.40) m/uL Hgb 13.6 (11.4-16.0) gm/dL Hct 40.6 (34.0-46.0) % MCV 81.5 (80.0-100.0) fL MCH 27.3 (25.0-35.0) pg MCHC 33.5 (31.0-37.0) g/dL RDW 16.1 H (11.5-15.5) % Plt Count 225 (150-450) k/uL Neutrophils % 78 % Lymphocytes % 13 % Monocytes % 5 % Eosinophils % 2 % Basophils % 1 % Neutrophils # 5.1 (1.3-7.7) k/uL Lymphocytes # 0.9 L (1.0-4.8) k/uL Monocytes # 0.3 (0-1.0) k/uL Eosinophils # 0.1 (0-0.7) k/uL Basophils # 0.0 (0-0.2) k/uL Anisocytosis Slight PT (9.0-12.0) sec INR (<1.2) APTT (22.0-30.0) sec Sodium 138 (137-145) mmol/L Potassium 4.4 (3.5-5.1) mmol/L Chloride 104 (98-107) mmol/L Carbon Dioxide 24 (22-30) mmol/L Anion Gap 10 mmol/L BUN 14 (7-17) mg/dL Creatinine 0.65 (0.52-1.04) mg/dL Est GFR (CKD-EPI)AfAm >90 (>60 ml/min/1.73 sqM) Est GFR (CKD-EPI)NonAf 81 (>60 ml/min/1.73 sqM) Glucose 115 H (74-99) mg/dL Plasma Lactic Acid Cristofer (0.7-2.0) mmol/L Calcium 8.8 (8.4-10.2) mg/dL Total Bilirubin 0.9 (0.2-1.3) mg/dL AST 39 H (14-36) U/L ALT 27 (9-52) U/L Alkaline Phosphatase 61 (38-126) U/L Troponin I (0.000-0.034) ng/mL Total Protein 6.1 L (6.3-8.2) g/dL Albumin 3.6 (3.5-5.0) g/dL Influenza Type A RNA Detected H (Not Detectd) Influenza Type B (PCR) Not Detected (Not Detectd) 02/02/19 02/02/19 02/02/19 Range/Units 11:31 11:31 11:31 WBC (3.8-10.6) k/uL RBC (3.80-5.40) m/uL Hgb (11.4-16.0) gm/dL Hct (34.0-46.0) % MCV (80.0-100.0) fL MCH (25.0-35.0) pg MCHC (31.0-37.0) g/dL RDW (11.5-15.5) % Plt Count (150-450) k/uL Neutrophils % % Lymphocytes % % Monocytes % % Eosinophils % % Basophils % % Neutrophils # (1.3-7.7) k/uL Lymphocytes # (1.0-4.8) k/uL Monocytes # (0-1.0) k/uL Eosinophils # (0-0.7) k/uL Basophils # (0-0.2) k/uL Anisocytosis PT 18.6 H (9.0-12.0) sec INR 1.9 H (<1.2) APTT 27.1 (22.0-30.0) sec Sodium (137-145) mmol/L Potassium (3.5-5.1) mmol/L Chloride (98-107) mmol/L Carbon Dioxide (22-30) mmol/L Anion Gap mmol/L BUN (7-17) mg/dL Creatinine (0.52-1.04) mg/dL Est GFR (CKD-EPI)AfAm (>60 ml/min/1.73 sqM) Est GFR (CKD-EPI)NonAf (>60 ml/min/1.73 sqM) Glucose (74-99) mg/dL Plasma Lactic Acid Cristofer 1.1 (0.7-2.0) mmol/L Calcium (8.4-10.2) mg/dL Total Bilirubin (0.2-1.3) mg/dL AST (14-36) U/L ALT (9-52) U/L Alkaline Phosphatase (38-126) U/L Troponin I <0.012 (0.000-0.034) ng/mL Total Protein (6.3-8.2) g/dL Albumin (3.5-5.0) g/dL Influenza Type A RNA (Not Detectd) Influenza Type B (PCR) (Not Detectd) Disposition Clinical Impression: Influenza A, Cough, Dyspnea Disposition: ADMITTED IP TO THIS HOSP Condition: Stable Is patient prescribed a controlled substance at d/c from ED?: No Time of Disposition: 12:19 Decision to Admit Reason: Admit from EC Decision Date: 02/02/19 Decision Time: 12:19
--- NOTE | 2019-02-02 11:18 | XR ---
EXAMINATION TYPE: XR chest 2V DATE OF EXAM: 02/02/2019 COMPARISON: 01/04/2018 TECHNIQUE: PA and lateral views submitted. HISTORY: Cough FINDINGS: The lungs are clear and there is no pneumothorax, pleural effusion, or focal pneumonia. Heart is enl arged and there is postsurgical changes. Diffuse osteopenia with arthropathy of the shoulders. Degene rative changes of the spine. Hyperinflation suggests COPD. IMPRESSION: 1. No acute process. Correlate for COPD.
[2019-02-02] MEDS ORDERED: SODIUM CHLORIDE 0.9% 500 ML 500 ML IV ONE (11:30)
[2019-02-02] MEDS ORDERED: ACETAMINOPHEN TAB 325 MG TAB PO STA (11:30)
[2019-02-02 11:52] LABS: Anisocytosis Slight; Basophils % (A) 1 %; Eosinophils # (A) 0.1 k/uL (0-0.7); Eosinophils % (A) 2 %; HCT 40.6 % (34.0-46.0); HGB 13.6 gm/dL (11.4-16.0); Lymphocytes # (A) 0.9 k/uL (1.0-4.8); Lymphocytes % (A) 13 %; MCH 27.3 pg (25.0-35.0); MCHC 33.5 g/dL (31.0-37.0); MCV 81.5 fL (80.0-100.0); Mean Platelet Volume 6.7; Monocytes # (A) 0.3 k/uL (0-1.0); Monocytes % (A) 5 %; Neutrophils # (A) 5.1 k/uL (1.3-7.7); Neutrophils % (A) 78 %; Platelet Count 225 k/uL (150-450); RBC 4.98 m/uL (3.80-5.40); RDW 16.1 % (11.5-15.5); WBC 6.5 k/uL (3.8-10.6)
[2019-02-02 12:01] LABS: INR 1.9 (<1.2); Partial Thromboplastin Time 27.1 sec (22.0-30.0); Prothrombin Time 18.6 sec (9.0-12.0)
[2019-02-02] MEDS ORDERED: ACETAMINOPHEN TAB 325 MG TAB PO PRN (12:17)
[2019-02-02] MEDS ORDERED: NALOXONE 0.4 MG/ML 1 ML VIAL IV PRN (12:17)
[2019-02-02] MEDS ORDERED: IBUPROFEN 400 MG TAB PO PRN (12:17)
[2019-02-02 12:18] LABS: ALT 27 U/L (9-52); AST 39 U/L (14-36); Albumin 3.6 g/dL (3.5-5.0); Alkaline Phosphatase 61 U/L (38-126); Anion Gap 10 mmol/L; Blood Urea Nitrogen 14 mg/dL (7-17); Calcium 8.8 mg/dL (8.4-10.2); Carbon Dioxide 24 mmol/L (22-30); Chloride 104 mmol/L (98-107); Glucose 115 mg/dL (74-99); Potassium 4.4 mmol/L (3.5-5.1); Sodium 138 mmol/L (137-145); Total Bilirubin 0.9 mg/dL (0.2-1.3); Total Protein 6.1 g/dL (6.3-8.2)
[2019-02-02] MEDS ORDERED: ONDANSETRON 4 MG/2 ML VIAL IVP PRN (13:03)
[2019-02-02] MEDS ORDERED: IPRATROPIUM-ALBUTEROL 3 ML NEB INHALATION PRN (13:47)
--- NOTE | 2019-02-02 13:58 | P.HPIM ---
History of Present Illness H&P Date: 02/02/19 This is an 88-year-old female patient who presents to the ER with complaints of cough congestion and generalized weakness since Saturday. Patient also has been febrile over the past 2 days. Patient does have past medical history of atrial fibrillation in which she is on Coumadin, hypertension, GERD, hyperlipidemia and valve repair in November 2015. Patient was positive for influenza A. Chest x- ray completed showing no acute process. Correlate for COPD. At this time patient started on Tamiflu. Normal saline at 75. Two-view chest x-ray ordered for a.m. DuoNeb breathing treatments ordered. At this time patient is complaining of cough and congestion. Patient denies nausea or vomiting. Patient denies chest pain. Patient denies any urinary burning or frequency. Review of Systems Please refer to HPI otherwise unremarkable Past Medical History Past Medical History: Atrial Fibrillation, GERD/Reflux, Hyperlipidemia, Hypertension History of Any Multi-Drug Resistant Organisms: None Reported Additional Past Surgical History / Comment(s): Valve repair Dec 13, 2015 Past Psychological History: No Psychological Hx Reported Smoking Status: Never smoker Past Alcohol Use History: None Reported Past Drug Use History: None Reported Medications and Allergies Home Medications Medication Instructions Recorded Confirmed Type Lisinopril [Zestril] 10 mg PO DAILY 01/04/18 02/02/19 History Omeprazole 20 mg PO DAILY 01/04/18 02/02/19 History Pravastatin Sodium [Pravachol] 40 mg PO DAILY 01/04/18 02/02/19 History Metoprolol Succinate (ER) [Toprol 50 mg PO BID #60 tab.er.24h 01/06/18 02/02/19 Rx XL] Warfarin [Coumadin] 2.5 mg PO SUTUTHSA 02/02/19 02/02/19 History Warfarin [Coumadin] 5 mg PO MOWEFR 02/02/19 02/02/19 History Allergies Allergy/AdvReac Type Severity Reaction Status Date / Time No Known Allergies Allergy Verified 02/02/19 11:05 Physical Exam Vitals: Vital Signs Temp Pulse Resp BP Pulse Ox 02/02/19 13:00 86 18 154/112 94 L 02/02/19 12:30 77 18 143/81 92 L 02/02/19 11:16 20 02/02/19 10:34 100.0 F H 66 20 139/85 94 L Intake and Output 02/01/19 02/02/19 02/02/19 22:59 06:59 14:59 Other: Weight 69.853 kg Head normocephalic Neck supple Lungs clear to auscultation bilaterally no wheezing or crackles. Cough noted Heart regular rate and rhythm S1-S2, no rub or gallop Abdomen is soft nontender nondistended positive bowel sounds no hepatosplenomegaly Extremities no edema Neuro alert and orientated to 3 Results CBC & Chem 7: 02/02/19 11:31 02/02/19 11:31 Labs: Abnormal Lab Results - Last 24 Hours (Table) 02/02/19 02/02/19 02/02/19 Range/Units 11:14 11:31 11:31 RDW 16.1 H (11.5-15.5) % Lymphocytes # 0.9 L (1.0-4.8) k/uL PT (9.0-12.0) sec INR (<1.2) Glucose 115 H (74-99) mg/dL AST 39 H (14-36) U/L Total Protein 6.1 L (6.3-8.2) g/dL Influenza Type A RNA Detected H (Not Detectd) 02/02/19 Range/Units 11:31 RDW (11.5-15.5) % Lymphocytes # (1.0-4.8) k/uL PT 18.6 H (9.0-12.0) sec INR 1.9 H (<1.2) Glucose (74-99) mg/dL AST (14-36) U/L Total Protein (6.3-8.2) g/dL Influenza Type A RNA (Not Detectd) Assessment and Plan Assessment: 1. Cough, congestion and weakness related to influenza A. Tamiflu started. Repeat two-view chest x-ray ordered for a.m. normal saline at 75 2. Paroxysmal atrial fibrillation. Patient is maintained on Coumadin. INR today 1.9. Home Coumadin dose reordered. Daily PT/INRs 3. History of valve repair. 4. History of essential hypertension 5. History of hyperlipidemia 6. History of GERD CT prophylaxis Coumadin. GI prophylaxis Protonix Continue Tamiflu. Repeat two-view chest x-ray ordered for AM Time with Patient: Greater than 30 (Greater than 60% of the total time spent in counseling and coordination of care. I performed an examination of the patient and discussed their management with the Nurse Practitioner. I have reviewed the Nurse Practitioner's notes and agree with the documented findings and plan of care)
[2019-02-02] MEDS: OSELTAMIVIR 60 MG/10 ML ORAL SYRINGE PO SCH ×2 (14:00→20:47)
[2019-02-02] MEDS: SODIUM CHLORIDE 0.9% 1,000 ML IV SCH (14:50)
[2019-02-02] MEDS: IPRATROPIUM-ALBUTEROL 3 ML NEB INHALATION SCH ×2 (16:50→20:23)
--- NOTE | 2019-02-02 17:20 | P.CNPUL ---
History of Present Illness Consult date: 02/02/19 Reason for consult: dyspnea History of present illness: 58-year-old female patient who presented emergency department because of increased dyspnea cough chest congestion and generalized weakness and fatigue since last Saturday. The patient was also febrile on outpatient basis. Her presentation was typical of an acute influenza infection. The patient checked positive for influenza and she was started on Tamiflu. The patient checked positive for influenza A. Significant leukocytosis. Rest of the blood work is all within normal limits. The patient has chronic atrial fibrillation and she is maintained on long-term articulation with warfarin with an INR of 1.9. She is undergone previous valve surgery and the patient's has no acute abnormality sternal chest x-ray. No reported nausea vomiting or diarrhea. No skin rashes. No altered mentation. No signs of any dehydration. She is currently on DuoNeb nebulized treatments around the clock, Tamiflu regarding influenza A respiratory infection. She is also on empiric antibiotic coverage with Rocephin. Patient is a lifetime nonsmoker, no history of COPD,no asthma Review of Systems Constitutional: Reports fatigue, Reports fever, Reports malaise, Reports weakness Eyes: denies as per HPI, denies blurred vision, denies bulging eye, denies decreased vision, denies diplopia, denies discharge, denies dry eye, denies irritation, denies itching, denies pain, denies photophobia, denies loss of peripheral vision, denies loss of vision, denies tunnel vision/blind spots Ears: deny: decreased hearing, ear discharge, earache, tinnitus Ears, nose, mouth and throat: Reports nasal congestion, Reports sinus pressure Breasts: absent: as per HPI, change in shape, gynecomastia, masses, nipple discharge, pain, skin changes, swelling Cardiovascular: Reports decreased exercise tolerance Respiratory: Reports cough, Reports dyspnea, Reports respiratory infections Gastrointestinal: Reports as per HPI Genitourinary: Reports as per HPI Menstruation: Reports as per HPI Musculoskeletal: Reports as per HPI Musculoskeletal: absent: ankle pain, ankle stiffness, ankle swelling, as per HPI, elbow pain, elbow stiffness, elbow swelling, foot pain, foot stiffness, foot swelling, hand pain, hand stiffness, hand swelling, hip pain, hip stiffness, hip swelling, knee pain, knee stiffness, knee swelling, shoulder pain, shoulder stiffness, shoulder swelling, wrist pain, wrist stiffness, wrist swelling Integumentary: Reports as per HPI Neurological: Reports weakness Endocrine: Reports fatigue Hematologic/Lymphatic: Reports as per HPI 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 Mother Family Medical History: AFIB, Diabetes Mellitus Additional Family Medical History / Comment(s): Mother lived to be 80yrs old. Medications and Allergies Home Medications Medication Instructions Recorded Confirmed Type Lisinopril [Zestril] 10 mg PO DAILY 01/04/18 02/02/19 History Omeprazole 20 mg PO DAILY 01/04/18 02/02/19 History Pravastatin Sodium [Pravachol] 40 mg PO DAILY 01/04/18 02/02/19 History Metoprolol Succinate (ER) [Toprol 50 mg PO BID #60 tab.er.24h 01/06/18 02/02/19 Rx XL] Warfarin [Coumadin] 2.5 mg PO SUTUTHSA 02/02/19 02/02/19 History Warfarin [Coumadin] 5 mg PO MOWEFR 02/02/19 02/02/19 History Allergies Allergy/AdvReac Type Severity Reaction Status Date / Time No Known Allergies Allergy Verified 02/02/19 11:05 Physical Exam Vitals: Vital Signs Temp Pulse Resp BP Pulse Ox 02/02/19 15:30 100.8 F H 83 17 120/65 92 L 02/02/19 15:00 80 16 133/98 92 L 02/02/19 14:30 82 18 133/86 94 L 02/02/19 14:00 75 20 124/76 95 02/02/19 13:30 85 24 121/68 92 L 02/02/19 13:00 86 18 154/112 94 L 02/02/19 12:30 77 18 143/81 92 L 02/02/19 11:16 20 02/02/19 10:34 100.0 F H 66 20 139/85 94 L Intake and Output 02/02/19 02/02/19 02/02/19 06:59 14:59 22:59 Other: Weight 69.853 kg The patient appeared well nourished and normally developed. Vital signs as documented. Head exam is unremarkable. No scleral icterus or corneal arcus noted. Neck is without jugular venous distension, thyromegaly, or carotid bruits. Carotid upstrokes are brisk bilaterally. Lungs are diminished, with s cattered wheezes, patient has a congested nonproductive cough. Cardiac exam reveals the PMI to be normally sized and situated. Rhythm is regular. First and second heart sounds normal. No murmurs, rubs or gallops. Abdominal exam reveals normal bowel sounds, no masses, no organomegaly and no aortic enlargement. Extremities are nonedematous and both femoral and pedal pulses are normal.Examination of the skin revealed no evidence of significant rashes, suspicious appearing nevi or other concerning lesions. Neurologically awake and alert and is no focal neurological deficits. Results - Laboratory Findings CBC and BMP: 02/02/19 11:31 02/02/19 11:31 PT/INR, D-dimer PT 18.6 sec (9.0-12.0) H 02/02/19 11:31 INR 1.9 (<1.2) H 02/02/19 11:31 Abnormal lab findings: Abnormal Labs 02/02/19 02/02/19 02/02/19 11:14 11:31 11:31 RDW 16.1 H Lymphocytes # 0.9 L PT INR Glucose 115 H AST 39 H Total Protein 6.1 L Influenza Type A RNA Detected H 02/02/19 11:31 RDW Lymphocytes # PT 18.6 H INR 1.9 H Glucose AST Total Protein Influenza Type A RNA - Diagnostic Findings Chest x-ray: image reviewed Assessment and Plan Assessment: 1 Acute influenza a infection, currently on Tamiflu 2 acute respiratory illness secondary to influenza A. 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 Bronchodilators. IV hydration. Chest x-ray has been reviewed and there is no evidence of pneumonia. Cough syrup, and Medrol Dosepak. Continue to follow. Time with Patient: Greater than 30
[2019-02-02] MEDS ORDERED: WARFARIN 5 MG TAB PO SCH (18:00)
[2019-02-02] MEDS: guaiFENesin SYRUP 100MG/5ML 200 MG/10 ML CUP PO SCH ×2 (18:02→23:53)
[2019-02-02] MEDS: methylPREDNISolone 4 MG TAB TAPER PO SCH (19:48)
[2019-02-02] MEDS: METOPROLOL SUCCINATE (ER) 50 MG TAB.ER.24H PO SCH (20:47)
[2019-02-02] MEDS ORDERED: OSELTAMIVIR 60 MG/10 ML ORAL SYRINGE PO SCH (21:00)
[2019-02-03] MEDS: SODIUM CHLORIDE 0.9% 1,000 ML IV SCH ×3 (04:26→23:12)
[2019-02-03] MEDS: guaiFENesin SYRUP 100MG/5ML 200 MG/10 ML CUP PO SCH ×4 (06:17→23:11)
[2019-02-03] MEDS: IPRATROPIUM-ALBUTEROL 3 ML NEB INHALATION SCH ×4 (07:05→20:38)
[2019-02-03] MEDS: METOPROLOL SUCCINATE (ER) 50 MG TAB.ER.24H PO SCH ×2 (08:58→21:35)
[2019-02-03] MEDS: methylPREDNISolone 4 MG TAB TAPER PO SCH (08:58)
[2019-02-03] MEDS: PANTOPRAZOLE 40 MG TABLET PO SCH (08:58)
[2019-02-03] MEDS: LISINOPRIL 10 MG TAB PO SCH (08:58)
[2019-02-03] MEDS: OSELTAMIVIR 60 MG/10 ML ORAL SYRINGE PO SCH ×2 (08:59→21:35)
[2019-02-03] MEDS: PRAVASTATIN SODIUM 40 MG TAB PO SCH (09:00)
--- NOTE | 2019-02-03 09:25 | XR ---
EXAMINATION TYPE: XR chest 2V DATE OF EXAM: 02/03/2019 COMPARISON: 02/02/2019 TECHNIQUE: PA and lateral views submitted. HISTORY: Pneumonia FINDINGS: No pleural effusion or pneumothorax. Heart is enlarged there is postsurgical changes. Hyperinflation is seen. Atherosclerotic change aorta. There is thickening of the right paratracheal stripe and degen erative change of the spine. Subsegmental basilar changes are noted. IMPRESSION: 1. Basilar atelectasis versus early infiltrate. Also slight thickening of the right paratracheal stri pe. Follow-up with CT scan as clinically warranted.
[2019-02-03 12:42] LABS: ALT 36 U/L (9-52); AST 34 U/L (14-36); Albumin 3.4 g/dL (3.5-5.0); Alkaline Phosphatase 56 U/L (38-126); Anion Gap 8 mmol/L; Blood Urea Nitrogen 13 mg/dL (7-17); Calcium 8.4 mg/dL (8.4-10.2); Carbon Dioxide 24 mmol/L (22-30); Chloride 104 mmol/L (98-107); Glucose 163 mg/dL (74-99); Sodium 136 mmol/L (137-145); Total Bilirubin 0.5 mg/dL (0.2-1.3); Total Protein 5.9 g/dL (6.3-8.2)
[2019-02-03 12:47] LABS: INR 1.8 (<1.2); Prothrombin Time 17.8 sec (9.0-12.0)
--- NOTE | 2019-02-03 12:47 | P.PN ---
Subjective Progress Note Date: 02/03/19 This is an 88-year-old female patient who presents to the ER with complaints of cough congestion and generalized weakness since Saturday. Patient also has been febrile over the past 2 days. Patient does have past medical history of atrial fibrillation in which she is on Coumadin, hypertension, GERD, hyperlipidemia and valve repair in November 2015. Patient was positive for influenza A. Chest x- ray completed showing no acute process. Correlate for COPD. At this time patient started on Tamiflu. Normal saline at 75. Two-view chest x-ray ordered for a.m. DuoNeb breathing treatments ordered. At this time patient is complaining of cough and congestion. Patient denies nausea or vomiting. Patie nt denies chest pain. Patient denies any urinary burning or frequency. On 02/03/2019 patient's alert and oriented 3 resting comfortably in bed. Patient is currently on Tamiflu, Rocephin and Medrol dose pack. Patient did have a low-grade temp of 100.5 last night. Patient is still having cough. Pulmonary services are following. At this time patient denies chest pain or shortness breath. Patient denies nausea vomiting or diarrhea. Patient denies any urinary burning or frequency Objective - Vital Signs Vital signs: Vital Signs Temp 96.5 F L 02/03/19 07:02 Pulse 82 02/03/19 11:20 Resp 17 02/03/19 07:02 BP 140/87 02/03/19 07:02 Pulse Ox 93 L 02/02/19 20:33 Intake & Output 02/02/19 02/03/19 02/03/19 18:59 06:59 18:59 Intake Total 240 Balance 240 Weight 69.853 kg 69.853 kg Intake: Oral 240 Other: Voiding Method Toilet Toilet # Voids 2 1 - Exam Head normocephalic Neck supple Lungs clear to auscultation bilaterally no wheezing or crackles. Cough noted Heart regular rate and rhythm S1-S2, no rub or gallop Abdomen is soft nontender nondistended positive bowel sounds no hepatosplenomegaly Extremities no edema Neuro alert and orientated to 3 - Labs CBC & Chem 7: 02/02/19 11:31 02/03/19 11:34 Labs: Abnormal Lab Results - Last 24 Hours (Table) 02/03/19 Range/Units 11:34 Sodium 136 L (137-145) mmol/L Glucose 163 H (74-99) mg/dL Total Protein 5.9 L (6.3-8.2) g/dL Albumin 3.4 L (3.5-5.0) g/dL Assessment and Plan Assessment: 1. Cough, congestion and weakness related to influenza A. Tamiflu started. Repeat chest x-ray reviewed showing basilar atelectasis versus early infiltrate. Also slight thickening of the right paratracheal stripe. Pulmonary services are following. Patient started on Medrol Dosepak. Patient maintained on Rocephin for antibiotics 2. Paroxysmal atrial fibrillation. Patient is maintained on Coumadin. INR today 1.9. Home Coumadin dose reordered. Daily PT/INRs 3. History of valve repair. 4. History of essential hypertension 5. History of hyperlipidemia 6. History of GERD 7. Hyperglycemia due to steroids. Sliding scale insulin ordered DVT prophylaxis Coumadin. GI prophylaxis Protonix I performed an examination of the patient and discussed their management with the Nurse Practitioner. I have reviewed the Nurse Practitioner's notes and agree with the documented findings and plan of care
[2019-02-03 13:11] LABS: Anisocytosis Slight; Basophils % (A) 0 %; Eosinophils % (A) 1 %; HCT 41.3 % (34.0-46.0); HGB 13.4 gm/dL (11.4-16.0); Lymphocytes # (A) 0.9 k/uL (1.0-4.8); Lymphocytes % (A) 13 %; MCH 27.2 pg (25.0-35.0); MCHC 32.4 g/dL (31.0-37.0); MCV 83.8 fL (80.0-100.0); Mean Platelet Volume 6.8; Monocytes # (A) 0.2 k/uL (0-1.0); Monocytes % (A) 3 %; Neutrophils # (A) 5.7 k/uL (1.3-7.7); Neutrophils % (A) 83 %; Platelet Count 213 k/uL (150-450); RBC 4.93 m/uL (3.80-5.40); RDW 16.3 % (11.5-15.5); WBC 6.9 k/uL (3.8-10.6)
--- NOTE | 2019-02-03 13:48 | P.PN ---
Subjective Progress Note Date: 02/03/19 Principal diagnosis: Acute influenza A infection 58-year-old female patient who presented emergency department because of increased dyspnea cough chest congestion and generalized weakness and fatigue since last Saturday. The patient was also febrile on outpatient basis. Her pr esentation was typical of an acute influenza infection. The patient checked positive for influenza and she was started on Tamiflu. The patient checked positive for influenza A. Significant leukocytosis. Rest of the blood work is all within normal limits. The patient has chronic atrial fibrillation and she is maintained on long-term articulation with warfarin with an INR of 1.9. She is undergone previous valve surgery and the patient's has no acute abnormality sternal chest x-ray. No reported nausea vomiting or diarrhea. No skin rashes. No altered mentation. No signs of any dehydration. She is currently on DuoNeb nebulized treatments around the clock, Tamiflu regarding influenza A respiratory infection. She is also on empiric antibiotic coverage with Rocephin. Patient is a lifetime nonsmoker, no history of COPD,no asthma On 02/03/2019 patient seen in follow-up on medical surgical floor. She is awake and alert, room air pulse ox is 90%. Today's labs have been reviewed, white blood cell count is 6.9, hemoglobin is 13.4, INR is 1.8, sodium is 136, there is a lack twice right profile are within normal limits. Lung sounds still bronchospastic, but overall patient is feeling better, she is on the course of Tamiflu, IV Rocephin, we started oral steroids, today we will switch to oral steroids to IV steroids. Patient is getting IV hydration 0.9 normal saline at a rate of 75 ML per hour. Objective - Vital Signs Vital signs: Vital Signs Temp 96.5 F L 02/03/19 07:02 Pulse 130 H 02/03/19 12:51 Resp 16 02/03/19 12:51 BP 128/94 02/03/19 12:51 Pulse Ox 90 L 02/03/19 12:51 Intake & Output 02/02/19 02/03/19 02/03/19 18:59 06:59 18:59 Intake Total 240 Balance 240 Weight 69.853 kg 69.853 kg Intake: Oral 240 Other: Voiding Method Toilet Toilet # Voids 2 1 - Exam GENERAL EXAM: Alert, pleasant, 88-year-old white female comfortable in no apparent distress. HEAD: Normocephalic/atraumatic. EYES: Normal reaction of pupils, equal size. Conjunctiva pink, sclera white. NOSE: Clear with pink turbinates. THROAT: No erythema or exudates. NECK: No masses, no JVD, no thyroid enlargement, no adenopathy. CHEST: No chest wall deformity. Symmetrical expansion. LUNGS: Equal air entry with expiratory wheezes CVS: Regular rate and rhythm, normal S1 and S2, no gallops, no murmurs, no rubs ABDOMEN: Soft, nontender. No hepatosplenomegaly, normal bowel sounds, no guarding or rigidity. EXTREMITIES: No clubbing, no edema, no cyanosis, 2+ pulses and upper and lower extremities. MUSCULOSKELETAL: Muscle strength and tone normal. SPINE: No scoliosis or deformity SKIN: No rashes CENTRAL NERVOUS SYSTEM: Alert and oriented -3. No focal deficits, tone is normal in all 4 extremities. PSYCHIATRIC: Alert and oriented -3. Appropriate affect. Intact judgment and insight. - Labs CBC & Chem 7: 02/03/19 11:34 02/03/19 11:34 Labs: Abnormal Lab Results - Last 24 Hours (Table) 02/03/19 02/03/19 02/03/19 Range/Units 11:34 11:34 11:34 RDW 16.3 H (11.5-15.5) % Lymphocytes # 0.9 L (1.0-4.8) k/uL PT 17.8 H (9.0-12.0) sec INR 1.8 H (<1.2) Sodium 136 L (137-145) mmol/L Glucose 163 H (74-99) mg/dL Total Protein 5.9 L (6.3-8.2) g/dL Albumin 3.4 L (3.5-5.0) g/dL Assessment and Plan Plan: Assessment: 1 Acute influenza a infection, currently on Tamiflu 2 acute respiratory illness secondary to influenza A. 3 acute febrile illness secondary influenza A 4 paroxysmal atrial fibrillation maintained on long-term medical condition with Coumadin with an INR of 1.9 and a controlled rate 5 history of valvular heart disease with a previous valve replacement, possibly aortic 6 hypertension 7 hyperlipidemia 8 acid reflux 9 previous episode of pneumonia 10 lifetime nonsmoker no history of chronic lung disease Plan: Continue current plan of treatment, IV steroids have been added, continue nebulized bronchodilators, antibiotics, Tamiflu. Patient is improving, but still bronchospastic and dyspneic. We'll continue to follow. I performed a history & physical examination of the patient and discussed their management with my nurse practitioner, Cari Johnson. I reviewed the nurse practitioner's note and agree with the documented findings and plan of care. Lung sounds are positive for diffuse wheezes throughout the lung motley. The findings and the impression was discussed with the patient. I attest to the documentation by the nurse practitioner. Time with Patient: Less than 30
[2019-02-03] MEDS: methylPREDNISolone SOD SUCCI 125 MG/2 ML VIAL IV SCH ×3 (14:42→23:11)
[2019-02-03 16:36] LABS: Glucose,Whole Blood 220 mg/dL (75-99)
[2019-02-03] MEDS: INSULIN ASPART (NovoLOG) 100 UNIT/ML VIAL SQ SCH ×2 (17:17→21:35)
[2019-02-03] MEDS ORDERED: WARFARIN 5 MG TAB PO ONE (18:00)
[2019-02-03] MEDS ORDERED: WARFARIN 2.5 MG TAB PO SCH (18:00)
[2019-02-03 21:34] LABS: Glucose,Whole Blood 205 mg/dL (75-99)
[2019-02-04 05:55] LABS: Glucose,Whole Blood 148 mg/dL (75-99)
[2019-02-04] MEDS: methylPREDNISolone SOD SUCCI 125 MG/2 ML VIAL IV SCH ×4 (06:30→23:18)
[2019-02-04] MEDS: INSULIN ASPART (NovoLOG) 100 UNIT/ML VIAL SQ SCH ×4 (06:30→21:08)
[2019-02-04] MEDS: PANTOPRAZOLE 40 MG TABLET PO SCH (06:30)
[2019-02-04] MEDS: guaiFENesin SYRUP 100MG/5ML 200 MG/10 ML CUP PO SCH ×4 (06:33→23:25)
[2019-02-04 06:57] LABS: Basophils % (A) 0 %; Eosinophils % (A) 1 %; HCT 43.9 % (34.0-46.0); HGB 13.6 gm/dL (11.4-16.0); Lymphocytes # (A) 0.8 k/uL (1.0-4.8); Lymphocytes % (A) 11 %; MCH 26.6 pg (25.0-35.0); MCHC 31.1 g/dL (31.0-37.0); MCV 85.4 fL (80.0-100.0); Mean Platelet Volume 6.4; Monocytes # (A) 0.2 k/uL (0-1.0); Monocytes % (A) 3 %; Neutrophils # (A) 5.8 k/uL (1.3-7.7); Neutrophils % (A) 85 %; Platelet Count 202 k/uL (150-450); RBC 5.13 m/uL (3.80-5.40); RDW 15.9 % (11.5-15.5); WBC 6.8 k/uL (3.8-10.6)
[2019-02-04 06:58] LABS: INR 2.4 (<1.2); Prothrombin Time 23.3 sec (9.0-12.0)
[2019-02-04 07:11] LABS: ALT 25 U/L (9-52); AST 35 U/L (14-36); Albumin 3.4 g/dL (3.5-5.0); Alkaline Phosphatase 45 U/L (38-126); Anion Gap 8 mmol/L; Blood Urea Nitrogen 18 mg/dL (7-17); Calcium 8.7 mg/dL (8.4-10.2); Carbon Dioxide 22 mmol/L (22-30); Chloride 108 mmol/L (98-107); Glucose 158 mg/dL (74-99); Potassium 4.9 mmol/L (3.5-5.1); Sodium 138 mmol/L (137-145); Total Bilirubin 0.7 mg/dL (0.2-1.3); Total Protein 6.1 g/dL (6.3-8.2)
[2019-02-04] MEDS: IPRATROPIUM-ALBUTEROL 3 ML NEB INHALATION SCH ×4 (08:12→19:50)
[2019-02-04] MEDS: OSELTAMIVIR 60 MG/10 ML ORAL SYRINGE PO SCH ×2 (09:20→21:08)
[2019-02-04] MEDS: PRAVASTATIN SODIUM 40 MG TAB PO SCH (09:21)
[2019-02-04] MEDS: METOPROLOL SUCCINATE (ER) 50 MG TAB.ER.24H PO SCH (09:21)
[2019-02-04] MEDS: LISINOPRIL 10 MG TAB PO SCH (09:21)
--- NOTE | 2019-02-04 12:02 | P.PN ---
Subjective Progress Note Date: 02/04/19 This is an 88-year-old female patient who presents to the ER with complaints of cough congestion and generalized weakness since Saturday. Patient also has been febrile over the past 2 days. Patient does have past medical history of atrial fibrillation in which she is on Coumadin, hypertension, GERD, hyperlipidemia and valve repair in November 2015. Patient was positive for influenza A. Chest x- ray completed showing no acute process. Correlate for COPD. At this time patient started on Tamiflu. Normal saline at 75. Two-view chest x-ray ordered for a.m. DuoNeb breathing treatments ordered. At this time patient is complaining of cough and congestion. Patient denies nausea or vomiting. Patie nt denies chest pain. Patient denies any urinary burning or frequency. On 02/03/2019 patient's alert and oriented 3 resting comfortably in bed. Patient is currently on Tamiflu, Rocephin and Medrol dose pack. Patient did have a low-grade temp of 100.5 last night. Patient is still having cough. Pulmonary services are following. At this time patient denies chest pain or shortness breath. Patient denies nausea vomiting or diarrhea. Patient denies any urinary burning or frequency On 02/04/2019 patient's alert and oriented 3. Patient is currently resting comfortably in bed. Patient was transferred to telemetry unit due to having elevated heart rate in the 130s with EKG performed showing atrial flutter. Patient does have a known past medical history of A. fib in which she is on C oumadin. Patient reports that she was seen by her road engineer freight possibly 2 weeks ago and a 2-D echo has been ordered for next Saturday. Will order 2-D echo at this time cardiology services have been consulted. This time patient does feel significantly improved. Patient denies any chest pain or shortness of breath. Patient denies nausea vomiting or diarrhea. Patient denies any urinary burning or frequency Objective - Vital Signs Vital signs: Vital Signs Temp 97.5 F L 02/04/19 07:40 Pulse 80 02/04/19 11:42 Resp 18 02/04/19 07:40 BP 188/82 02/04/19 07:40 Pulse Ox 95 02/04/19 08:15 Intake & Output 02/03/19 02/04/19 02/04/19 18:59 06:59 18:59 Intake Total 836 1725 240 Balance 836 1725 240 Weight 69.853 kg 68.8 kg Intake: Intake, IV Titration 825 Amount Sodium Chloride 0.9% 1, 825 000 ml @ 75 mls/hr IV . [id number] [facility] Rx#:[id number] Oral 836 900 240 Other: Voiding Method Toilet Toilet # Voids 1 1 - Exam Head normocephalic Neck supple Lungs clear to auscultation bilaterally no wheezing or crackles. Cough noted Heart regular rate and rhythm S1-S2, no rub or gallop Abdomen is soft nontender nondistended positive bowel sounds no hepatosplenomegaly Extremities no edema Neuro alert and orientated to 3 - Labs CBC & Chem 7: 02/04/19 06:31 02/04/19 06:31 Labs: Abnormal Lab Results - Last 24 Hours (Table) 02/03/19 02/03/19 02/03/19 Range/Units 11:34 11:34 11:34 RDW 16.3 H (11.5-15.5) % Lymphocytes # 0.9 L (1.0-4.8) k/uL PT 17.8 H (9.0-12.0) sec INR 1.8 H (<1.2) Sodium 136 L (137-145) mmol/L Chloride (98-107) mmol/L BUN (7-17) mg/dL Glucose 163 H (74-99) mg/dL POC Glucose (mg/dL) (75-99) mg/dL Total Protein 5.9 L (6.3-8.2) g/dL Albumin 3.4 L (3.5-5.0) g/dL 02/03/19 02/03/19 02/04/19 Range/Units 16:25 21:32 05:50 RDW (11.5-15.5) % Lymphocytes # (1.0-4.8) k/uL PT (9.0-12.0) sec INR (<1.2) Sodium (137-145) mmol/L Chloride (98-107) mmol/L BUN (7-17) mg/dL Glucose (74-99) mg/dL POC Glucose (mg/dL) 220 H 205 H 148 H (75-99) mg/dL Total Protein (6.3-8.2) g/dL Albumin (3.5-5.0) g/dL 02/04/19 02/04/19 02/04/19 Range/Units 06:31 06:31 06:31 RDW 15.9 H (11.5-15.5) % Lymphocytes # 0.8 L (1.0-4.8) k/uL PT 23.3 H (9.0-12.0) sec INR 2.4 H (<1.2) Sodium (137-145) mmol/L Chloride 108 H (98-107) mmol/L BUN 18 H (7-17) mg/dL Glucose 158 H (74-99) mg/dL POC Glucose (mg/dL) (75-99) mg/dL Total Protein 6.1 L (6.3-8.2) g/dL Albumin 3.4 L (3.5-5.0) g/dL Microbiology - Last 24 Hours (Table) 02/02/19 11:31 Blood Culture - Preliminary Blood No Growth after 24 hours Assessment and Plan Assessment: 1. Cough, congestion and weakness related to influenza A. Tamiflu started. Repeat chest x-ray reviewed showing basilar atelectasis versus early infiltrate. Also slight thickening of the right paratracheal stripe. Pulmonary services are following. Patient started on Medrol Dosepak. Patient maintained on Rocephin for antibiotics 2. Paroxysmal atrial fibrillation. Patient is maintained on Coumadin. Home Coumadin dose reordered. Daily PT/INRs 3. History of valve repair. 4. History of essential hypertension 5. History of hyperlipidemia 6. History of GERD 7. Hyperglycemia due to steroids. Sliding scale insulin ordered 8. Atrial flutter. Patient had elevated heart rate in the 130s. She was transferred to telemetry care and 2-D echo has been ordered. Cardiology services have been consulted. Patient does have known has been no history of A. fib in which she is on Coumadin DVT prophylaxis Coumadin. GI prophylaxis Protonix I performed an examination of the patient and discussed their management with the Nurse Practitioner. I have reviewed the Nurse Practitioner's notes and agree with the documented findings and plan of care
[2019-02-04 12:10] LABS: Glucose,Whole Blood 154 mg/dL (75-99)
--- NOTE | 2019-02-04 12:20 | ECHOF ---
Referral Reason:afib aflutter MEASUREMENTS -------- HEIGHT: 162.6 cm WEIGHT: 68.5 kg BP: RVIDd: 3.4 cm (< 3.3) IVSd: 1.2 cm (0.6 - 1.1) LVIDd: 4.2 cm (3.9 - 5.3) LVPWd: 1.4 cm (0.6 - 1.1) IVSs: 1.6 cm LVIDs: 2.7 cm LVPWs: 1.8 cm LAESV Index (A-L): 59.82 ml/m Ao Diam: 2.8 cm (2.0 - 3.7) AV Cusp: 1.2 cm (1.5 - 2.6) LA Diam: 4.0 cm (2.7 - 3.8) MV EXCURSION: 12.148 mm (> 18.000) MV EF SLOPE: 39 mm/s (70 - 150) EPSS: 0.6 cm AR PHT: 538 ms RAP: 15.00 mmHg RVSP: 62.55 mmHg FINDINGS -------- Atrial fibrillation. This was a technically good study. The left ventricular size is normal. There is mild concentric left ventricular hypertrophy. Overa ll left ventricular systolic function is normal with, an EF between 55 - 60 %. The right ventricle is mildly enlarged. LA is severely dilated >40 ml/m2 The right atrium is mildly enlarged. Aortic valve is trileaflet and is mildly thickened. There is mild aortic regurgitation. Mild mitral regurgitation is present. 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 Severe tricuspid regurgitation present. There is moderate pulmonary hypertension. The right ventr icular systolic pressure, as measured by Doppler, is 62.55mmHg. Possible TV prolapse There is no pulmonic regurgitation present. The aortic root size is normal. The inferior vena cava is mildly dilated. There is no pericardial effusion. CONCLUSIONS -------- 1. Atrial fibrillation. 2. This was a technically good study. 3. The left ventricular size is normal. 4. There is mild concentric left ventricular hypertrophy. 5. Overall left ventricular systolic function is normal with, an EF between 55 - 60 %. 6. The right ventricle is mildly enlarged. 7. LA is severely dilated >40 ml/m2 8. The right atrium is mildly enlarged. 9. Aortic valve is trileaflet and is mildly thickened. 10. There is mild aortic regurgitation. 11. Mild mitral regurgitation is present. 12. 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 13. Severe tricuspid regurgitation present. 14. There is moderate pulmonary hypertension. 15. The right ventricular systolic pressure, as measured by Doppler, is 62.55mmHg. 16. Possible TV prolapse 17. There is no pulmonic regurgitation present. 18. The aortic root size is normal. 19. The inferior vena cava is mildly dilated. 20. There is no pericardial effusion. CAN TOP SETTER: Shari Silva RDCS
--- NOTE | 2019-02-04 13:50 | P.PN ---
Subjective Progress Note Date: 02/04/19 Principal diagnosis: Acute influenza A infection. 58-year-old female patient who presented emergency department because of increased dyspnea cough chest congestion and generalized weakness and fatigue since last Saturday. The patient was also febrile on outpatient basis. Her p resentation was typical of an acute influenza infection. The patient checked positive for influenza and she was started on Tamiflu. The patient checked positive for influenza A. Significant leukocytosis. Rest of the blood work is all within normal limits. The patient has chronic atrial fibrillation and she is maintained on long-term articulation with warfarin with an INR of 1.9. She is undergone previous valve surgery and the patient's has no acute abnormality sternal chest x-ray. No reported nausea vomiting or diarrhea. No skin rashes. No altered mentation. No signs of any dehydration. She is currently on DuoNeb nebulized treatments around the clock, Tamiflu regarding influenza A respiratory infection. She is also on empiric antibiotic coverage with Rocephin. Patient is a lifetime nonsmoker, no history of COPD,no asthma On 02/03/2019 patient seen in follow-up on medical surgical floor. She is awake and alert, room air pulse ox is 90%. Today's labs have been reviewed, white blood cell count is 6.9, hemoglobin is 13.4, INR is 1.8, sodium is 136, there is a lack twice right profile are within normal limits. Lung sounds still bronchospastic, but overall patient is feeling better, she is on the course of Tamiflu, IV Rocephin, we started oral steroids, today we will switch to oral steroids to IV steroids. Patient is getting IV hydration 0.9 normal saline at a rate of 75 ML per hour. The patient is seen today 02/04/2018 in follow-up on the selective care unit. S he is currently awake and alert in no acute distress. She is maintaining O2 saturations in the mid 90s on room air. She's been afebrile. She did develop atrial fibrillation with a rapid ventricular response of is transferred to the selective care unit last evening. He denies any chest pain, palpitations, lightheadedness or dizziness. Echocardiogram reveals preserved left ventricular systolic function with ejection fraction 55-60%. White count 6.8. Hemoglobin 13.6. INR 2.4. Creatinine 0.59. She remains on ceftriaxone, bronchodilators, IV Solu-Medrol and Tamiflu. Objective - Vital Signs Vital signs: Vital Signs Temp 97.5 F L 02/04/19 07:40 Pulse 80 02/04/19 11:42 Resp 18 02/04/19 07:40 BP 188/82 02/04/19 07:40 Pulse Ox 95 02/04/19 08:15 Intake & Output 02/03/19 02/04/19 02/04/19 18:59 06:59 18:59 Intake Total 836 1725 480 Balance 836 1725 480 Weight 69.853 kg 68.8 kg Intake: Intake, IV Titration 825 Amount Sodium Chloride 0.9% 1, 825 000 ml @ 75 mls/hr IV . [id number] [facility] Rx#:[id number] Oral 836 900 480 Other: Voiding Method Toilet Toilet # Voids 1 1 - Exam GENERAL EXAM: Alert, pleasant, 88-year-old white female comfortable in no apparent distress. On room air. HEAD: Normocephalic/atraumatic. EYES: Normal reaction of pupils, equal size. Conjunctiva pink, sclera white. NOSE: Clear with pink turbinates. THROAT: No erythema or exudates. NECK: No masses, no JVD, no thyroid enlargement, no adenopathy. CHEST: No chest wall deformity. Symmetrical expansion. LUNGS: Equal air entry with expiratory wheezes CVS: Irregular rate and rhythm, normal S1 and S2, no gallops, no murmurs, no rubs ABDOMEN: Soft, nontender. No hepatosplenomegaly, normal bowel sounds, no guarding or rigidity. EXTREMITIES: No clubbing, no edema, no cyanosis, 2+ pulses and upper and lower extremities. MUSCULOSKELETAL: Muscle strength and tone normal. SPINE: No scoliosis or deformity SKIN: No rashes CENTRAL NERVOUS SYSTEM: No focal deficits, tone is normal in all 4 extremities. PSYCHIATRIC: Alert and oriented -3. Appropriate affect. Intact judgment and insight. - Labs CBC & Chem 7: 02/04/19 06:31 02/04/19 06:31 Labs: Abnormal Lab Results - Last 24 Hours (Table) 02/03/19 02/03/19 02/04/19 Range/Units 16:25 21:32 05:50 RDW (11.5-15.5) % Lymphocytes # (1.0-4.8) k/uL PT (9.0-12.0) sec INR (<1.2) Chloride (98-107) mmol/L BUN (7-17) mg/dL Glucose (74-99) mg/dL POC Glucose (mg/dL) 220 H 205 H 148 H (75-99) mg/dL Total Protein (6.3-8.2) g/dL Albumin (3.5-5.0) g/dL 02/04/19 02/04/19 02/04/19 Range/Units 06:31 06:31 06:31 RDW 15.9 H (11.5-15.5) % Lymphocytes # 0.8 L (1.0-4.8) k/uL PT 23.3 H (9.0-12.0) sec INR 2.4 H (<1.2) Chloride 108 H (98-107) mmol/L BUN 18 H (7-17) mg/dL Glucose 158 H (74-99) mg/dL POC Glucose (mg/dL) (75-99) mg/dL Total Protein 6.1 L (6.3-8.2) g/dL Albumin 3.4 L (3.5-5.0) g/dL 02/04/19 Range/Units 11:51 RDW (11.5-15.5) % Lymphocytes # (1.0-4.8) k/uL PT (9.0-12.0) sec INR (<1.2) Chloride (98-107) mmol/L BUN (7-17) mg/dL Glucose (74-99) mg/dL POC Glucose (mg/dL) 154 H (75-99) mg/dL Total Protein (6.3-8.2) g/dL Albumin (3.5-5.0) g/dL Microbiology - Last 24 Hours (Table) 02/02/19 11:31 Blood Culture - Preliminary Blood No Growth after 48 hours Assessment and Plan Assessment: Assessment: 1 Acute influenza a infection, currently on Tamiflu 2 acute respiratory illness secondary to influenza A. 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 Whiting. She is improved today as compared to yesterday. Still with intermittent a A. fib with RVR. Anticoagulated. We'll continue with ceftriaxone, DuoNeb inhalations, IV Solu-Medrol. We will increase her activity as tolerated. We will continue to follow and make further recommendations based on her clinical status. I, the cosigning physician, performed a history & physical examination of the patient. Lungs sounds with few scattered rhonchi. Maintaining good O2 saturations in the 90s on room air. I discussed the assessment and plan of care with my nurse practitioner, Christine Cuenca. I attest to the above note as dictated by her.
--- NOTE | 2019-02-04 13:52 | P.CRDCN ---
History of Present Illness History of present illness: This is Dr. 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 Please call as needed HPI Patient presented with chest congestion and cough since Saturday. She has influenza a She also had fever chills and decreased energy She denied any chest discomfort She has a history of hypertension paroxysmal atrial fibrillation and hypertension ROS: + fever chills or rigors, + cough, phlegm or expectoration, no nausea, vomiting or diarrhea, no hematuria, dysuria, no musculoskeletal complaints, no strokes or seizures, no skin lesions. EXAMINATION: Pulse rate in the 70s during sinus rhythm Blood pressure 145/91 mmHg Breath sounds are reduced bilaterally with rhonchorous breath sounds bilaterally Soft systolic murmur over the left lower sternal border rhythm is irregular REVIEW OF LABS, ECG & MEDICAL DATA Twelve-lead ECG shows sinus rhythm with PACs sometimes with an aberrant cond uction MT interval is normal QRS is narrow 2-D echo shows preserved LV size and systolic function mild mitral regurgitation mitral ring annuloplasty, severe tricuspid regurgitation and RVSP 62 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 Mother Family Medical History: AFIB, Diabetes Mellitus Additional Family Medical History / Comment(s): Mother lived to be 80yrs old. Medications and Allergies Home Medications Medication Instructions Recorded Confirmed Type Lisinopril [Zestril] 10 mg PO DAILY 01/04/18 02/02/19 History Omeprazole 20 mg PO DAILY 01/04/18 02/02/19 History Pravastatin Sodium [Pravachol] 40 mg PO DAILY 01/04/18 02/02/19 History Metoprolol Succinate (ER) [Toprol 50 mg PO BID #60 tab.er.24h 01/06/18 02/02/19 Rx XL] Warfarin [Coumadin] 2.5 mg PO SUTUTHSA 02/02/19 02/02/19 History Warfarin [Coumadin] 5 mg PO [id number] 02/02/19 02/02/19 History Allergies Allergy/AdvReac Type Severity Reaction Status Date / Time No Known Allergies Allergy Verified 02/02/19 11:05 Physical Exam Vitals: Vital Signs Temp Pulse Pulse Resp BP Pulse Ox 02/04/19 11:42 80 02/04/19 11:32 76 02/04/19 08:22 80 02/04/19 08:15 95 02/04/19 08:14 80 02/04/19 07:40 97.5 F L 66 18 188/82 94 L 02/04/19 04:00 98.2 F 83 18 145/91 95 02/03/19 23:28 81 17 02/03/19 23:26 98.5 F 81 17 140/82 93 L 02/03/19 20:51 80 02/03/19 20:38 78 92 L 02/03/19 20:00 98.4 F 106 H 17 140/88 94 L 02/03/19 16:26 80 02/03/19 16:22 76 02/03/19 16:05 97.9 F 119 H 16 145/91 92 L 02/03/19 16:00 119 H 16 Intake and Output 02/03/19 02/04/19 02/04/19 22:59 06:59 14:59 Intake Total 736 1225 480 Balance 736 1225 480 Intake: Intake, IV Titration 825 Amount Sodium Chloride 0.9% 1, 825 000 ml @ 75 mls/hr IV . [id number] [facility] Rx#:[id number] Oral 736 400 480 Other: Voiding Method Toilet Toilet # Voids 1 1 Weight 68.8 kg Results 02/04/19 06:31 02/04/19 06:31 Cardiac Enzymes 02/04/19 Range/Units 06:31 AST 35 (14-36) U/L Coagulation 02/04/19 Range/Units 06:31 PT 23.3 H (9.0-12.0) sec CBC 02/04/19 Range/Units 06:31 WBC 6.8 (3.8-10.6) k/uL RBC 5.13 (3.80-5.40) m/uL Hgb 13.6 (11.4-16.0) gm/dL Hct 43.9 (34.0-46.0) % Plt Count 202 (150-450) k/uL Comprehensive Metabolic Panel 02/04/19 Range/Units 06:31 Sodium 138 (137-145) mmol/L Potassium 4.9 (3.5-5.1) mmol/L Chloride 108 H (98-107) mmol/L Carbon Dioxide 22 (22-30) mmol/L BUN 18 H (7-17) mg/dL Creatinine 0.59 (0.52-1.04) mg/dL Glucose 158 H (74-99) mg/dL Calcium 8.7 (8.4-10.2) mg/dL AST 35 (14-36) U/L ALT 25 (9-52) U/L Alkaline Phosphatase 45 (38-126) U/L Total Protein 6.1 L (6.3-8.2) g/dL Albumin 3.4 L (3.5-5.0) g/dL Current Medications Generic Name Dose Route Start Last Admin Trade Name Freq PRN Reason Stop Dose Admin Acetaminophen 650 mg 02/02/19 12:17 Tylenol Tab PO Q6HR PRN Mild Pain or Fever > 100.5 Albuterol/Ipratropium 3 ml 02/02/19 16:00 02/04/19 11:30 Duoneb 0.5 Mg-3 Mg/3 Ml Soln INHALATION 3 ml RT-QID [facility] Administration Albuterol/Ipratropium 3 ml 02/02/19 13:47 02/02/19 17:26 Duoneb 0.5 Mg-3 Mg/3 Ml Soln INHALATION 3 ml RT-Q2H PRN Administration Shortness Of Breath Or Wheezing Guaifenesin 200 mg 02/02/19 18:00 02/04/19 11:49 Robitussin PO Not Given Q6HR [facility] Ceftriaxone Sodium 1 gm/ 50 mls @ 100 mls/hr 02/03/19 09:00 02/04/19 09:20 Sodium Chloride IVPB 100 mls/hr Q24HR [facility] Administration Ibuprofen 400 mg 02/02/19 12:17 Motrin PO Q6HR PRN Mild Pain or Fever > 100.5 Insulin Aspart 0 unit 02/03/19 17:30 02/04/19 12:15 Novolog SQ 1 unit ACHS [facility] Administration Protocol Lisinopril 10 mg 02/03/19 09:00 02/04/19 09:21 Zestril PO 10 mg DAILY [facility] Administration Methylprednisolone Sodium Succinate 60 mg 02/03/19 13:38 02/04/19 11:53 Solu-Medrol IV 60 mg Q6HR [facility] Administration Metoprolol Succinate 50 mg 02/02/19 21:00 02/04/19 09:21 Toprol Xl PO 50 mg BID NELL Administration Miscellaneous Information 0 each 02/02/19 13:57 Coumadin Per Pharmacy MISCELLANE DIRECTED PRN PER PROTOCOL Naloxone HCl 0.2 mg 02/02/19 12:17 Narcan IV Q2M PRN Opioid Reversal Ondansetron HCl 4 mg 02/02/19 13:03 Zofran IVP Q6HR PRN Vomiting Oseltamivir Phosphate 30 mg 02/02/19 13:03 02/04/19 09:20 Tamiflu PO 02/06/19 21:01 30 mg Q12HR [facility] Administration Pantoprazole Sodium 40 mg 02/03/19 07:30 02/04/19 06:30 Protonix PO 40 mg [id number] [facility] Administration Pravastatin Sodium 40 mg 02/03/19 09:00 02/04/19 09:21 Pravachol PO 40 mg DAILY [facility] Administration Warfarin Sodium 5 mg 02/04/19 18:00 Coumadin PO 02/04/19 18:01 ONCE@1800 ONE Intake and Output 02/03/19 02/04/19 02/04/19 22:59 06:59 14:59 Intake Total 736 1225 480 Balance 736 1225 480 Intake: Intake, IV Titration 825 Amount Sodium Chloride 0.9% 1, 825 000 ml @ 75 mls/hr IV . [id number] [facility] Rx#:[id number] Oral 736 400 480 Other: Voiding Method Toilet Toilet # Voids 1 1 Weight 68.8 kg 02/04/19 06:31 04/10/19 06:31
[2019-02-04] MEDS ORDERED: BENZOCAINE/MENTHOL LOZENG 1 EACH LOZENGE MUCOUS MEM PRN (14:50)
[2019-02-04 17:00] LABS: Glucose,Whole Blood 142 mg/dL (75-99)
[2019-02-04] MEDS ORDERED: WARFARIN 5 MG TAB PO ONE (18:00)
[2019-02-04 20:58] LABS: Glucose,Whole Blood 247 mg/dL (75-99)
[2019-02-04] MEDS: METOPROLOL SUCCINATE (ER) 25 MG TAB.ER.24H PO SCH (21:07)
[2019-02-05 06:05] LABS: Glucose,Whole Blood 125 mg/dL (75-99)
[2019-02-05] MEDS: PANTOPRAZOLE 40 MG TABLET PO SCH (06:08)
[2019-02-05] MEDS: methylPREDNISolone SOD SUCCI 125 MG/2 ML VIAL IV SCH ×3 (06:08→17:54)
[2019-02-05] MEDS: guaiFENesin SYRUP 100MG/5ML 200 MG/10 ML CUP PO SCH ×3 (06:44→17:53)
[2019-02-05] MEDS: INSULIN ASPART (NovoLOG) 100 UNIT/ML VIAL SQ SCH ×4 (06:44→21:06)
[2019-02-05] MEDS: IPRATROPIUM-ALBUTEROL 3 ML NEB INHALATION SCH ×3 (07:31→15:41)
[2019-02-05 07:34] LABS: Basophils % (A) 0 %; Eosinophils % (A) 0 %; HCT 45.6 % (34.0-46.0); HGB 14.1 gm/dL (11.4-16.0); Hypochromasia Slight; Lymphocytes # (A) 0.7 k/uL (1.0-4.8); Lymphocytes % (A) 7 %; MCHC 30.9 g/dL (31.0-37.0); MCV 87.3 fL (80.0-100.0); Mean Platelet Volume 6.3; Monocytes # (A) 0.3 k/uL (0-1.0); Monocytes % (A) 2 %; Neutrophils # (A) 9.5 k/uL (1.3-7.7); Neutrophils % (A) 90 %; Platelet Count 241 k/uL (150-450); RBC 5.22 m/uL (3.80-5.40); RDW 15.9 % (11.5-15.5); WBC 10.6 k/uL (3.8-10.6)
[2019-02-05 07:48] LABS: INR 2.8 (<1.2); Prothrombin Time 27.2 sec (9.0-12.0)
[2019-02-05 07:54] LABS: Albumin 3.7 g/dL (3.5-5.0); Potassium 4.2 mmol/L (3.5-5.1); Total Bilirubin 0.7 mg/dL (0.2-1.3); Total Protein 6.3 g/dL (6.3-8.2)
[2019-02-05] MEDS: LISINOPRIL 10 MG TAB PO SCH (09:16)
[2019-02-05] MEDS: METOPROLOL SUCCINATE (ER) 25 MG TAB.ER.24H PO SCH ×2 (09:17→21:07)
[2019-02-05] MEDS: OSELTAMIVIR 60 MG/10 ML ORAL SYRINGE PO SCH ×2 (09:18→21:07)
[2019-02-05] MEDS: PRAVASTATIN SODIUM 40 MG TAB PO SCH (09:18)
[2019-02-05 11:23] LABS: Glucose,Whole Blood 225 mg/dL (75-99)
[2019-02-05] MEDS ORDERED: LISINOPRIL 10 MG TAB PO STA (12:44)
--- NOTE | 2019-02-05 14:19 | P.PN ---
Subjective Progress Note Date: 02/05/19 This is an 88-year-old female patient who presents to the ER with complaints of cough congestion and generalized weakness since Saturday. Patient also has been febrile over the past 2 days. Patient does have past medical history of atrial fibrillation in which she is on Coumadin, hypertension, GERD, hyperlipidemia and valve repair in November 2015. Patient was positive for influenza A. Chest x- ray completed showing no acute process. Correlate for COPD. At this time patient started on Tamiflu. Normal saline at 75. Two-view chest x-ray ordered for a.m. DuoNeb breathing treatments ordered. At this time patient is complaining of cough and congestion. Patient denies nausea or vomiting. Patie nt denies chest pain. Patient denies any urinary burning or frequency. On 02/03/2019 patient's alert and oriented 3 resting comfortably in bed. Patient is currently on Tamiflu, Rocephin and Medrol dose pack. Patient did have a low-grade temp of 100.5 last night. Patient is still having cough. Pulmonary services are following. At this time patient denies chest pain or shortness breath. Patient denies nausea vomiting or diarrhea. Patient denies any urinary burning or frequency On 02/04/2019 patient's alert and oriented 3. Patient is currently resting comfortably in bed. Patient was transferred to telemetry unit due to having elevated heart rate in the 130s with EKG performed showing atrial flutter. Patient does have a known past medical history of A. fib in which she is on C oumadin. Patient reports that she was seen by her pre owned sales consultant possibly 2 weeks ago and a 2-D echo has been ordered for next Saturday. Will order 2-D echo at this time cardiology services have been consulted. This time patient does feel significantly improved. Patient denies any chest pain or shortness of breath. Patient denies nausea vomiting or diarrhea. Patient denies any urinary burning or frequency On 02/05/2019 patient's alert and oriented 3. Patient is currently sitting up in chair. Patient heart rate better controlled. Metroprolol has been increased per cardiology. Patient is still having elevated blood pressures. Lisinopril has been increased to 20 mg daily. Anticipate discharge in the next 24-48 hours. Patient denies chest pain or shortness breath. Patient denies nausea diarrhea. Patient denies any urinary buring or frequency Objective - Vital Signs Vital signs: Vital Signs Temp 97.4 F L 02/05/19 11:41 Pulse 70 02/05/19 11:57 Resp 20 02/05/19 11:41 BP 162/92 02/05/19 11:41 Pulse Ox 95 02/05/19 11:41 Intake & Output 02/04/19 02/05/19 02/05/19 18:59 06:59 18:59 Intake Total 3360 1200 1010 Balance 3360 1200 1010 Weight 67.9 kg Intake: Intake, IV Titration 750 50 Amount Sodium Chloride 0.9% 1, 600 000 ml @ 75 mls/hr IV . [id number] [facility] Rx#:[id number] cefTRIAXone 1 gm In 150 50 Sodium Chloride 0.9% 50 ml @ 100 mls/hr IVPB Q24HR [facility] Rx#:[id number] Oral 2610 1200 960 Other: Voiding Method Toilet Toilet # Voids 3 1 0 - Exam Head normocephalic Neck supple Lungs clear to auscultation bilaterally no wheezing or crackles. Cough noted Heart regular rate and rhythm S1-S2, no rub or gallop Abdomen is soft nontender nondistended positive bowel sounds no hepatosplenomegaly Extremities no edema Neuro alert and orientated to 3 - Labs CBC & Chem 7: 02/05/19 06:54 02/05/19 06:54 Labs: Abnormal Lab Results - Last 24 Hours (Table) 02/04/19 02/04/19 02/05/19 Range/Units 16:54 20:56 06:02 MCHC (31.0-37.0) g/dL RDW (11.5-15.5) % Neutrophils # (1.3-7.7) k/uL Lymphocytes # (1.0-4.8) k/uL PT (9.0-12.0) sec INR (<1.2) BUN (7-17) mg/dL Glucose (74-99) mg/dL POC Glucose (mg/dL) 142 H 247 H 125 H (75-99) mg/dL 02/05/19 02/05/19 02/05/19 Range/Units 06:54 06:54 06:54 MCHC 30.9 L (31.0-37.0) g/dL RDW 15.9 H (11.5-15.5) % Neutrophils # 9.5 H (1.3-7.7) k/uL Lymphocytes # 0.7 L (1.0-4.8) k/uL PT 27.2 H (9.0-12.0) sec INR 2.8 H (<1.2) BUN 25 H (7-17) mg/dL Glucose 122 H (74-99) mg/dL POC Glucose (mg/dL) (75-99) mg/dL 02/05/19 Range/Units 11:17 MCHC (31.0-37.0) g/dL RDW (11.5-15.5) % Neutrophils # (1.3-7.7) k/uL Lymphocytes # (1.0-4.8) k/uL PT (9.0-12.0) sec INR (<1.2) BUN (7-17) mg/dL Glucose (74-99) mg/dL POC Glucose (mg/dL) 225 H (75-99) mg/dL Microbiology - Last 24 Hours (Table) 02/02/19 11:31 Blood Culture - Preliminary Blood No Growth after 72 hours Assessment and Plan Assessment: 1. Cough, congestion and weakness related to influenza A. Tamiflu started. Repeat chest x-ray reviewed showing basilar atelectasis versus early infiltrate. Also slight thickening of the right paratracheal stripe. Pulmonary services are following. Patient started on Medrol Dosepak. Patient maintained on Rocephin for antibiotics 2. Paroxysmal atrial fibrillation. Patient is maintained on Coumadin. Home Coumadin dose reordered. Daily PT/INRs 3. History of valve repair. 4. History of essential hypertension 5. History of hyperlipidemia 6. History of GERD 7. Hyperglycemia due to steroids. Sliding scale insulin ordered 8. Atrial flutter. Patient had elevated heart rate in the 130s. She was transferred to telemetry care and 2-D echo has been ordered. Cardiology services have been consulted. Patient does have known has been no history of A. fib in which she is on Coumadin. Per cardiology patient's Metroprolol has been increased. 9. Essential hypertension. Patient still having elevated blood pressures 160s to 170s. Lisinopril and metoprolol has been increased. We'll continue to watch for another 24-hour's and DC'd home possibly tomorrow DVT prophylaxis Coumadin. GI prophylaxis Protonix I performed an examination of the patient and discussed their management with the Nurse Practitioner. I have reviewed the Nurse Practitioner's notes and ingrid dietrich with the documented findings and plan of care
--- NOTE | 2019-02-05 15:02 | P.PN ---
Subjective Progress Note Date: 02/05/19 Principal diagnosis: Acute influenza A infection 58-year-old female patient who presented emergency department because of increased dyspnea cough chest congestion and generalized weakness and fatigue since last Saturday. The patient was also febrile on outpatient basis. Her pr esentation was typical of an acute influenza infection. The patient checked positive for influenza and she was started on Tamiflu. The patient checked positive for influenza A. Significant leukocytosis. Rest of the blood work is all within normal limits. The patient has chronic atrial fibrillation and she is maintained on long-term articulation with warfarin with an INR of 1.9. She is undergone previous valve surgery and the patient's has no acute abnormality sternal chest x-ray. No reported nausea vomiting or diarrhea. No skin rashes. No altered mentation. No signs of any dehydration. She is currently on DuoNeb nebulized treatments around the clock, Tamiflu regarding influenza A respiratory infection. She is also on empiric antibiotic coverage with Rocephin. Patient is a lifetime nonsmoker, no history of COPD,no asthma On 02/03/2019 patient seen in follow-up on medical surgical floor. She is awake and alert, room air pulse ox is 90%. Today's labs have been reviewed, white blood cell count is 6.9, hemoglobin is 13.4, INR is 1.8, sodium is 136, there is a lack twice right profile are within normal limits. Lung sounds still bronchospastic, but overall patient is feeling better, she is on the course of Tamiflu, IV Rocephin, we started oral steroids, today we will switch to oral steroids to IV steroids. Patient is getting IV hydration 0.9 normal saline at a rate of 75 ML per hour. On 02/05/2019 patient seen in follow-up on selective care unit, she sits up in the chair, in no acute distress. Her breathing is improving, she has been afebrile, room air pulse ox is 95%, hemodynamically stable, no acute issues overnight. Blood culture showed no growth, no worsening dyspnea, no cough or congestion. Lung sounds revealed a few scattered rhonchi, clinically patient remains stable. Objective - Vital Signs Vital signs: Vital Signs Temp 97.4 F L 02/05/19 11:41 Pulse 70 02/05/19 11:57 Resp 20 02/05/19 11:41 BP 162/92 02/05/19 11:41 Pulse Ox 95 02/05/19 11:41 Intake & Output 02/04/19 02/05/19 02/05/19 18:59 06:59 18:59 Intake Total 3360 1200 1010 Balance 3360 1200 1010 Weight 67.9 kg Intake: Intake, IV Titration 750 50 Amount Sodium Chloride 0.9% 1, 600 000 ml @ 75 mls/hr IV . [id number] [facility] Rx#:[id number] cefTRIAXone 1 gm In 150 50 Sodium Chloride 0.9% 50 ml @ 100 mls/hr IVPB Q24HR [facility] Rx#:[id number] Oral 2610 1200 960 Other: Voiding Method Toilet Toilet # Voids 3 1 0 - Exam GENERAL EXAM: Alert, pleasant, 88-year-old white female comfortable in no apparent distress. HEAD: Normocephalic/atraumatic. EYES: Normal reaction of pupils, equal size. Conjunctiva pink, sclera white. NOSE: Clear with pink turbinates. THROAT: No erythema or exudates. NECK: No masses, no JVD, no thyroid enlargement, no adenopathy. CHEST: No chest wall deformity. Symmetrical expansion. LUNGS: Equal air entry with scattered rhonchi, no significant wheezes. CVS: Regular rate and rhythm, normal S1 and S2, no gallops, no murmurs, no rubs ABDOMEN: Soft, nontender. No hepatosplenomegaly, normal bowel sounds, no guarding or rigidity. EXTREMITIES: No clubbing, no edema, no cyanosis, 2+ pulses and upper and lower extremities. MUSCULOSKELETAL: Muscle strength and tone normal. SPINE: No scoliosis or deformity SKIN: No rashes CENTRAL NERVOUS SYSTEM: Alert and oriented -3. No focal deficits, tone is normal in all 4 extremities. PSYCHIATRIC: Alert and oriented -3. Appropriate affect. Intact judgment and insight. - Labs CBC & Chem 7: 02/05/19 06:54 02/05/19 06:54 Labs: Abnormal Lab Results - Last 24 Hours (Table) 02/04/19 02/04/19 02/05/19 Range/Units 16:54 20:56 06:02 MCHC (31.0-37.0) g/dL RDW (11.5-15.5) % Neutrophils # (1.3-7.7) k/uL Lymphocytes # (1.0-4.8) k/uL PT (9.0-12.0) sec INR (<1.2) BUN (7-17) mg/dL Glucose (74-99) mg/dL POC Glucose (mg/dL) 142 H 247 H 125 H (75-99) mg/dL 02/05/19 02/05/19 02/05/19 Range/Units 06:54 06:54 06:54 MCHC 30.9 L (31.0-37.0) g/dL RDW 15.9 H (11.5-15.5) % Neutrophils # 9.5 H (1.3-7.7) k/uL Lymphocytes # 0.7 L (1.0-4.8) k/uL PT 27.2 H (9.0-12.0) sec INR 2.8 H (<1.2) BUN 25 H (7-17) mg/dL Glucose 122 H (74-99) mg/dL POC Glucose (mg/dL) (75-99) mg/dL 02/05/19 Range/Units 11:17 MCHC (31.0-37.0) g/dL RDW (11.5-15.5) % Neutrophils # (1.3-7.7) k/uL Lymphocytes # (1.0-4.8) k/uL PT (9.0-12.0) sec INR (<1.2) BUN (7-17) mg/dL Glucose (74-99) mg/dL POC Glucose (mg/dL) 225 H (75-99) mg/dL Microbiology - Last 24 Hours (Table) 02/02/19 11:31 Blood Culture - Preliminary Blood No Growth after 72 hours Assessment and Plan Plan: Assessment: 1 Acute influenza a infection, currently on Tamiflu 2 acute respiratory illness secondary to influenza A. 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 He can stop the IV Rocephin, patient will need to complete a course of Tamiflu and prednisone taper. We'll see the patient in follow-up in the 1 or 2 weeks. I performed a history & physical examination of the patient and discussed their management with my nurse practitioner, Cari Johnson. I reviewed the nurse practitioner's note and agree with the documented findings and plan of care. Lung sounds are positive for few scattered rhonchi. The findings and the impression was discussed with the patient. I attest to the documentation by the nurse practitioner. Time with Patient: Less than 30
[2019-02-05 16:29] LABS: Glucose,Whole Blood 170 mg/dL (75-99)
[2019-02-05] MEDS ORDERED: WARFARIN 2.5 MG TAB PO SCH (18:00)
[2019-02-05 18:39] VITALS: RESP 17
[2019-02-05 20:35] LABS: Glucose,Whole Blood 171 mg/dL (75-99)
[2019-02-06] MEDS: methylPREDNISolone SOD SUCCI 125 MG/2 ML VIAL IV SCH ×2 (00:13→06:16)
[2019-02-06] MEDS: guaiFENesin SYRUP 100MG/5ML 200 MG/10 ML CUP PO SCH ×3 (00:16→11:19)
[2019-02-06] MEDS: IPRATROPIUM-ALBUTEROL 3 ML NEB INHALATION SCH ×3 (00:39→12:07)
[2019-02-06 06:40] LABS: Glucose,Whole Blood 145 mg/dL (75-99)
[2019-02-06] MEDS: PANTOPRAZOLE 40 MG TABLET PO SCH (07:05)
[2019-02-06] MEDS: INSULIN ASPART (NovoLOG) 100 UNIT/ML VIAL SQ SCH ×2 (07:05→12:16)
[2019-02-06 08:06] LABS: Basophils % (A) 0 %; Eosinophils % (A) 0 %; HCT 47.6 % (34.0-46.0); HGB 14.7 gm/dL (11.4-16.0); Lymphocytes # (A) 0.8 k/uL (1.0-4.8); Lymphocytes % (A) 8 %; MCH 26.6 pg (25.0-35.0); Mean Platelet Volume 6.3; Monocytes # (A) 0.4 k/uL (0-1.0); Monocytes % (A) 4 %; Neutrophils # (A) 8.2 k/uL (1.3-7.7); Neutrophils % (A) 86 %; Platelet Count 242 k/uL (150-450); RBC 5.53 m/uL (3.80-5.40); RDW 15.5 % (11.5-15.5); WBC 9.5 k/uL (3.8-10.6)
[2019-02-06 08:11] LABS: Albumin 3.8 g/dL (3.5-5.0); Potassium 4.1 mmol/L (3.5-5.1); Total Bilirubin 0.7 mg/dL (0.2-1.3); Total Protein 6.3 g/dL (6.3-8.2)
[2019-02-06 08:18] LABS: INR 3.2 (<1.2); Prothrombin Time 30.6 sec (9.0-12.0)
[2019-02-06] MEDS ORDERED: LISINOPRIL 20 MG TAB PO SCH (09:00)
[2019-02-06] MEDS: METOPROLOL SUCCINATE (ER) 25 MG TAB.ER.24H PO SCH (09:58)
[2019-02-06] MEDS: OSELTAMIVIR 60 MG/10 ML ORAL SYRINGE PO SCH ×2 (09:58→14:50)
[2019-02-06] MEDS: PRAVASTATIN SODIUM 40 MG TAB PO SCH (10:00)
[2019-02-06 10:55] VITALS: BMI 25.2
[2019-02-06 11:25] LABS: Glucose,Whole Blood 115 mg/dL (75-99)
[2019-02-06 13:17] VITALS: BP 140/95; PULSE 50; TEMP 98.3
--- NOTE | 2019-02-06 14:49 | P.DS ---
Providers Date of admission: 02/05/19 15:44 Expected date of discharge: 02/06/19 Attending physician: Barbara Rogers Consults: 02/02/19 14:14 Consult Physician Routine Consulting Provider: Linus Whiting Consult Reason/Comments: flu A, increase congestion/cough Do you want consulting provider notified?: Yes 02/03/19 14:07 Consult Physician Routine Consulting Provider: Justen Leal Consult Reason/Comments: known A-fib, elevated HR, a flutter Do you want consulting provider notified?: Yes Primary care physician: Barbara [facility] Course: Discharge diagnosis 1. Cough, congestion and weakness related to influenza A. Tamiflu started. Repeat chest x-ray reviewed showing basilar atelectasis versus early infiltrate. Also slight thickening of the right paratracheal stripe. Pulmonary services are following. Patient maintained on Rocephin for antibiotics. No need for antibiotics per pulmonary care. Patient will be DC'd on prednisone taper. Patient will receive last dose a Tamiflu prior to discharge 2. Paroxysmal atrial fibrillation. Patient is maintained on Coumadin. Home Coumadin dose reordered. Daily PT/INRs. PT INR 3.2 today. Patient to hold Coumadin dose tonight and resume normal Coumadin schedule tomorrow for 02/07/2019 3. History of valve repair. 4. History of essential hypertension 5. History of hyperlipidemia 6. History of GERD 7. Hyperglycemia due to steroids. Sliding scale insulin ordered 8. Atrial flutter. Patient had elevated heart rate in the 130s. She was transferred to telemetry care and 2-D echo has been ordered. Cardiology services have been consulted. Patient does have known has been no history of A. fib in which she is on Coumadin. Per cardiology patient's Metroprolol has been increased. 9. Essential hypertension. Patient still having elevated blood pressures 160s to 170s. Lisinopril and metoprolol has been increased. We'll continue to watch for another 24-hour's and DC'd home possibly tomorrow. Patient's lisinopril has been increased to 20 mg daily. Metroprolol also increased per cardiology due to elevated heart rate. Patient's heart rate now in the 50s. Patient's asymptomatic blood pressure improved. Patient to follow-up outpatient with PCP and cardiology services for further management. Hospital course This is an 88-year-old female patient who presents to the ER with complaints of cough congestion and generalized weakness since Saturday. Patient also has been febrile over the past 2 days. Patient does have past medical history of atrial fibrillation in which she is on Coumadin, hypertension, GERD, hyperlipidemia and valve repair in November 2015. Patient was positive for influenza A. Chest x- ray completed showing no acute process. Correlate for COPD. At this time patient started on Tamiflu. Normal saline at 75. Two-view chest x-ray ordered for a.m. DuoNeb breathing treatments ordered. At this time patient is complaining of cough and congestion. Patient denies nausea or vomiting. Patient denies chest pain. Patient denies any urinary burning or frequency. On 02/03/2019 patient's alert and oriented 3 resting comfortably in bed. Patient is currently on Tamiflu, Rocephin and Medrol dose pack. Patient did have a low-grade temp of 100.5 last night. Patient is still having cough. Pulmonary services are following. At this time patient denies chest pain or shortness breath. Patient denies nausea vomiting or diarrhea. Patient denies any urinary burning or frequency On 02/04/2019 patient's alert and oriented 3. Patient is currently resting comfortably in bed. Patient was transferred to telemetry unit due to having elevated heart rate in the 130s with EKG performed showing atrial flutter. Patient does have a known past medical history of A. fib in which she is on Coumadin. Patient reports that she was seen by her casting inspector possibly 2 weeks ago and a 2-D echo has been ordered for next Saturday. Will order 2-D echo at this time cardiology services have been consulted. This time patient does feel significantly improved. Patient denies any chest pain or shortness of breath. Patient denies nausea vomiting or diarrhea. Patient denies any urinary burning or frequency On 02/05/2019 patient's alert and oriented 3. Patient is currently sitting up in chair. Patient heart rate better controlled. Metroprolol has been increased per cardiology. Patient is still having elevated blood pressures. Lisinopril has been increased to 20 mg daily. Anticipate discharge in the next 24-48 hours. Patient denies chest pain or shortness breath. Patient denies nausea diarrhea. Patient denies any urinary buring or frequency. On 02/06/2019 patient is alert and oriented 3. Patient is very eager to go home. Patient will receive last dose of Tamiflu prior to discharge. Poor per pulmonary services no need for antibiotics. Patient will be discharged home on prednisone taper. Patient's Lopressor has been increased per cardiology due to elevated heart rate. Patient's lisinopril also increased due to elevated blood pressure. Patient's heart rate is in the 50s now patient is asymptomatic. Patient to follow-up closely with her PCP and cardiology services for further management. At this time patient denies chest pain or shortness breath. Patient denies nausea vomiting or diarrhea. Denies any urinary burning or frequency. I performed an examination of the patient and discussed their management with the Nurse Practitioner. I have reviewed the Nurse Practitioner's notes and agree with the documented findings and plan of care Patient Condition at Discharge: Stable Plan - Discharge Summary Discharge Rx Participant: No New Discharge Prescriptions: New Metoprolol Succinate (ER) [Toprol XL] 75 mg PO BID 30 Days #60 tab.er.24h Lisinopril [Zestril] 20 mg PO DAILY 30 Days #30 tab predniSONE 10 mg PO DIRECTED 30 Days #30 tab Continue Pravastatin Sodium [Pravachol] 40 mg PO DAILY Omeprazole 20 mg PO DAILY Warfarin [Coumadin] 5 mg PO MOWEFR Warfarin [Coumadin] 2.5 mg PO SUTUTHSA Discontinued Lisinopril [Zestril] 10 mg PO DAILY Metoprolol Succinate (ER) [Toprol XL] 50 mg PO BID #60 tab.er.24h Discharge Medication List Omeprazole 20 mg PO DAILY 01/04/18 [History] Pravastatin Sodium [Pravachol] 40 mg PO DAILY 01/04/18 [History] Warfarin [Coumadin] 2.5 mg PO SUTUTHSA 02/02/19 [History] Warfarin [Coumadin] 5 mg PO MOWEFR 02/02/19 [History] Lisinopril [Zestril] 20 mg PO DAILY 30 Days #30 tab 02/06/19 [Rx] Metoprolol Succinate (ER) [Toprol XL] 75 mg PO BID 30 Days #60 tab.er.24h 02/06/19 [Rx] predniSONE 10 mg PO DIRECTED 30 Days #30 tab 02/06/19 [Rx] Follow up Appointment(s)/Referral(s): Barbara Rogres MD [Primary Care Provider] - 02/13/19 10:45 am (Saturday) Linus Whiting MD [STAFF PHYSICIAN] - 03/10/19 8:30 am Bar Tineo MD [STAFF PHYSICIAN] - 1 Week Patient Instructions/Handouts: Influenza (DC) Activity/Diet/Wound Care/Special Instructions: Activity as tolerated Diet heart healthy Patient to get last dose of Tamiflu prior to discharge Patient to hold Coumadin today for 10/16/2019 and resume normal dosage tomorrow for 02/07/2019 Discharge Disposition: HOME SELF-CARE
--- NOTE | 2019-02-06 15:28 | P.PN ---
Subjective Progress Note Date: 02/06/19 Principal diagnosis: Acute influenza A infection 58-year-old female patient who presented emergency department because of increased dyspnea cough chest congestion and generalized weakness and fatigue since last Saturday. The patient was also febrile on outpatient basis. Her pr esentation was typical of an acute influenza infection. The patient checked positive for influenza and she was started on Tamiflu. The patient checked positive for influenza A. Significant leukocytosis. Rest of the blood work is all within normal limits. The patient has chronic atrial fibrillation and she is maintained on long-term articulation with warfarin with an INR of 1.9. She is undergone previous valve surgery and the patient's has no acute abnormality sternal chest x-ray. No reported nausea vomiting or diarrhea. No skin rashes. No altered mentation. No signs of any dehydration. She is currently on DuoNeb nebulized treatments around the clock, Tamiflu regarding influenza A respiratory infection. She is also on empiric antibiotic coverage with Rocephin. Patient is a lifetime nonsmoker, no history of COPD,no asthma On 02/03/2019 patient seen in follow-up on medical surgical floor. She is awake and alert, room air pulse ox is 90%. Today's labs have been reviewed, white blood cell count is 6.9, hemoglobin is 13.4, INR is 1.8, sodium is 136, there is a lack twice right profile are within normal limits. Lung sounds still bronchospastic, but overall patient is feeling better, she is on the course of Tamiflu, IV Rocephin, we started oral steroids, today we will switch to oral steroids to IV steroids. Patient is getting IV hydration 0.9 normal saline at a rate of 75 ML per hour. On 02/05/2019 patient seen in follow-up on selective care unit, she sits up in the chair, in no acute distress. Her breathing is improving, she has been afebrile, room air pulse ox is 95%, hemodynamically stable, no acute issues overnight. Blood culture showed no growth, no worsening dyspnea, no cough or congestion. Lung sounds revealed a few scattered rhonchi, clinically patient remains stable. On 02/06/2019 patient seen in follow-up. Is doing very well, sitting up in the chair, in no acute distress, she is on room air, pulse ox is 98%. No fever or chills, lung sounds are essentially clear on today's exam. Today's labs have been reviewed, white blood cell count is 9.5, hemoglobin is 14.7. B1 is 30, creatinine is 0.71, electrolytes are unremarkable, with the exception of CO2 which is at 32 on today's labs. INR is 3.2. Ration is completing her course of Tamiflu, we stopped empiric antibiotics, she has had no acute events overnight, doing very well, ambulating. The discharge home today. Objective - Vital Signs Vital signs: Vital Signs Temp 98.3 F 02/06/19 13:16 Pulse 50 L 02/06/19 13:16 Resp 17 02/06/19 01:31 BP 140/95 02/06/19 13:16 Pulse Ox 98 02/06/19 13:16 Intake & Output 02/05/19 02/06/19 02/06/19 18:59 06:59 18:59 Intake Total 1250 540 Balance 1250 540 Weight 66.8 kg 66.8 kg Intake: Intake, IV Titration 50 Amount cefTRIAXone 1 gm In 50 Sodium Chloride 0.9% 50 ml @ 100 mls/hr IVPB Q24HR [facility] Rx#:[id number] Oral 1200 540 Other: Voiding Method Toilet Toilet # Voids 2 2 1 - Exam GENERAL EXAM: Alert, pleasant, 88-year-old white female comfortable in no apparent distress. HEAD: Normocephalic/atraumatic. EYES: Normal reaction of pupils, equal size. Conjunctiva pink, sclera white. NOSE: Clear with pink turbinates. THROAT: No erythema or exudates. NECK: No masses, no JVD, no thyroid enlargement, no adenopathy. CHEST: No chest wall deformity. Symmetrical expansion. LUNGS: Equal air entry, no rhonchi, no wheezing, no rales CVS: Regular rate and rhythm, normal S1 and S2, no gallops, no murmurs, no rubs ABDOMEN: Soft, nontender. No hepatosplenomegaly, normal bowel sounds, no guarding or rigidity. EXTREMITIES: No clubbing, no edema, no cyanosis, 2+ pulses and upper and lower extremities. MUSCULOSKELETAL: Muscle strength and tone normal. SPINE: No scoliosis or deformity SKIN: No rashes CENTRAL NERVOUS SYSTEM: Alert and oriented -3. No focal deficits, tone is normal in all 4 extremities. PSYCHIATRIC: Alert and oriented -3. Appropriate affect. Intact judgment and insight. - Labs CBC & Chem 7: 02/06/19 07:33 02/06/19 07:33 Labs: Abnormal Lab Results - Last 24 Hours (Table) 02/05/19 02/05/19 02/06/19 Range/Units 16:17 20:32 06:39 RBC (3.80-5.40) m/uL Hct (34.0-46.0) % Neutrophils # (1.3-7.7) k/uL Lymphocytes # (1.0-4.8) k/uL PT (9.0-12.0) sec INR (<1.2) Carbon Dioxide (22-30) mmol/L BUN (7-17) mg/dL Glucose (74-99) mg/dL POC Glucose (mg/dL) 170 H 171 H 145 H (75-99) mg/dL 02/06/19 02/06/19 02/06/19 Range/Units 07:33 07:33 07:33 RBC 5.53 H (3.80-5.40) m/uL Hct 47.6 H (34.0-46.0) % Neutrophils # 8.2 H (1.3-7.7) k/uL Lymphocytes # 0.8 L (1.0-4.8) k/uL PT 30.6 H (9.0-12.0) sec INR 3.2 H (<1.2) Carbon Dioxide 32 H (22-30) mmol/L BUN 30 H (7-17) mg/dL Glucose 148 H (74-99) mg/dL POC Glucose (mg/dL) (75-99) mg/dL 02/06/19 Range/Units 11:24 RBC (3.80-5.40) m/uL Hct (34.0-46.0) % Neutrophils # (1.3-7.7) k/uL Lymphocytes # (1.0-4.8) k/uL PT (9.0-12.0) sec INR (<1.2) Carbon Dioxide (22-30) mmol/L BUN (7-17) mg/dL Glucose (74-99) mg/dL POC Glucose (mg/dL) 115 H (75-99) mg/dL Microbiology - Last 24 Hours (Table) 02/02/19 11:31 Blood Culture - Preliminary Blood No Growth after 96 hours Assessment and Plan Plan: Assessment: 1 Acute influenza a infection, currently on Tamiflu 2 acute respiratory illness secondary to influenza A. 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 We'll see the patient in follow-up in 7-10 days. I performed a history & physical examination of the patient and discussed their management with my nurse practitioner, Cari Johnson. I reviewed the nurse practitioner's note and agree with the documented findings and plan of care. Lung sounds are positive for few scattered rhonchi. The findings and the impression was discussed with the patient. I attest to the documentation by the nurse practitioner. Time with Patient: Less than 30
[2019-02-06] MEDS ORDERED: WARFARIN 2.5 MG TAB PO ONE (18:00)
[2019-02-06] MEDS ORDERED: WARFARIN 5 MG TAB PO SCH (18:00)
== END 2019-02-06 15:31 | disposition home or self-care (01) | DRG 194 ==
LOC: EC 10:10 → 4MS4W 12:38 → 4SSUR 02-03 15:54 → 3SCARD 02-03 19:55 → OBSVTOIN 02-05 15:44 → 4SSUR 02-05 18:22
PROVIDERS: ADMIT Internal Medicine; ATTEND Internal Medicine
DX: J10.1 Influenza due to other identified influenza virus with other respiratory manifestations (principal); I48.92 Unspecified atrial flutter; E78.5 Hyperlipidemia, unspecified; I10 Essential (primary) hypertension; I48.2 Chronic atrial fibrillation; K21.9 Gastro-esophageal reflux disease without esophagitis; R73.9 Hyperglycemia, unspecified; I34.0 Nonrheumatic mitral (valve) insufficiency; T38.0X5A Adverse effect of glucocorticoids and synthetic analogues, initial encounter; Z79.01 Long term (current) use of anticoagulants; Z79.899 Other long term (current) drug therapy; Z95.2 Presence of prosthetic heart valve; Z95.1 Presence of aortocoronary bypass graft; Z90.710 Acquired absence of both cervix and uterus; Z87.01 Personal history of pneumonia (recurrent); Z85.828 Personal history of other malignant neoplasm of skin; Z90.49 Acquired absence of other specified parts of digestive tract; Z83.3 Family history of diabetes mellitus; Z80.0 Family history of malignant neoplasm of digestive organs
CPT/HCPCS: 36415; 71046; 80053; 83605; 84484; 85025; 85610; 85730; 87040; 87502; 93005; 93306; 94640; 99285

== ENCOUNTER 2019-02-11 16:29 | Inpatient (IN) | payer MEDICARE, BC ==
[2019-02-11] MEDS ORDERED: DILTIAZEM DRIP BOLUS FROM BAG 1 MG SOLN IV ONE (17:01)
--- NOTE | 2019-02-11 17:11 | ED ---
General Adult HPI - General Chief complaint: Arrhythmia/Palpitations Stated complaint: AFib Time Seen by Provider: 02/11/19 16:40 Source: patient, family, RN notes reviewed Mode of arrival: ambulatory Limitations: no limitations - History of Present Illness Initial comments: This is an 88-year-old female presents to the emergency department with a recent past medical history significant for A. fib/A flutter. According to the patient she was just in the hospital for this about a month ago and about a week ago she was in the hospital for influenza A. Patient comes in today because she went to see her primary medical care doctor and he told her her heart was racing as well as having high blood pressure. Patient states she was asymptomatic at this time. Patient denies any chest pain palpitations difficulty breathing or shortness of breath. Patient states she does have a recent history influenza A but has no symptoms of that currently. Patient denies any cough or any upper respiratory symptoms. Patient denies any lightheadedness dizziness. Patient states overall she has been much more fatigued lately. - Related Data Home Medications Medication Instructions Recorded Confirmed Omeprazole 20 mg PO DAILY 01/04/18 02/11/19 Pravastatin Sodium [Pravachol] 40 mg PO DAILY 01/04/18 02/11/19 Warfarin [Coumadin] 2.5 mg PO MOFR 02/02/19 02/11/19 Warfarin [Coumadin] 5 mg PO SUTUWETHSA 02/02/19 02/11/19 predniSONE See Taper PO DIRECTED 02/11/19 02/11/19 Previous Rx's Medication Instructions Recorded Lisinopril [Zestril] 20 mg PO DAILY 30 Days #30 tab 02/06/19 Metoprolol Succinate (ER) [Toprol 75 mg PO BID 30 Days #60 tab.er.24h 02/06/19 XL] Allergies Allergy/AdvReac Type Severity Reaction Status Date / Time No Known Allergies Allergy Verified 02/11/19 17:52 Review of Systems ROS Statement: Those systems with pertinent positive or pertinent negative responses have been documented in the HPI. ROS Other: All systems not noted in ROS Statement are negative. 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, skin cancer with removals History of Any Multi-Drug Resistant Organisms: None Reported Past Surgical History: Appendectomy, Cardiac Valve Replacement, Coronary Bypass/CABG, Hysterectomy, Joint Replacement Additional Past Surgical History / Comment(s): Valve repair Dec 13, 2015 Past Anesthesia/Blood Transfusion Reactions: No Reported Reaction Past Psychological History: No Psychological Hx Reported Smoking Status: Never smoker Past Alcohol Use History: None Reported Past Drug Use History: None Reported - Past Family History Father Family Medical History: Cancer Additional Family Medical History / Comment(s): Father of pancreatic cancer at the age of 53 yrs. Mother Family Medical History: AFIB, Diabetes Mellitus Additional Family Medical History / Comment(s): Mother lived to be 80yrs old. General Exam - General Exam Comments Initial Comments: GENERAL: Patient is well-developed and well-nourished. Patient is nontoxic and well- hydrated and is in no acute distress. ENT: Neck is soft and supple. No significant lymphadenopathy is noted. Oropharynx is clear. Moist mucous membranes. Neck has full range of motion without eliciting any pain. EYES: The sclera were anicteric and conjunctiva were pink and moist. Extraocular movements were intact and pupils were equal round and reactive to light. Eyelids were unremarkable. PULMONARY: Unlabored respirations. Good breath sounds bilaterally. No audible rales rhonchi or wheezing was noted. CARDIOVASCULAR: Heart is racing at about 130 beats a minute. ABDOMEN: Soft and nontender with normal bowel sounds. No palpable organomegaly was noted. There is no palpable pulsatile mass. SKIN: Skin is clear with no lesions or rashes and otherwise unremarkable. NEUROLOGIC: Patient is alert and oriented x3. Cranial nerves II through XII are grossly intact. Motor and sensory are also intact. Normal speech, volume and content. Symmetrical smile. MUSCULOSKELETAL: Normal extremities with adequate strength and full range of motion. No lower extremity swelling or edema. No calf tenderness. LYMPHATICS: No significant lymphadenopathy is noted PSYCHIATRIC: Normal psychiatric evaluation. Limitations: no limitations Course Vital Signs 02/11/19 02/11/19 02/11/19 16:37 17:29 17:31 Temperature 98.2 F Pulse Rate 139 H 140 H Respiratory 20 18 Rate Blood Pressure 160/112 137/107 113/90 O2 Sat by Pulse 96 Oximetry Medical Decision Making - Medical Decision Making EKG shows atrial flutter potentially at 139 bpm FL interval is on a 54 QRS 150 QT interval 388 QTC is 590. I started the patient on a Cardizem drip after I gave the patient a Cardizem bolus. Chest x-ray shows no acute abnormality. I talked to Dr. Rogers he wanted the patient admitted I admitted the patient I wrote admit orders I consulted cardiology and I continued the Cardizem on the floor. - Lab Data Result diagrams: 02/11/19 16:55 02/11/19 16:55 Lab Results 02/11/19 02/11/19 02/11/19 Range/Units 16:55 16:55 16:55 WBC 10.1 (3.8-10.6) k/uL RBC 5.71 H (3.80-5.40) m/uL Hgb 15.3 (11.4-16.0) gm/dL Hct 48.9 H (34.0-46.0) % MCV 85.7 (80.0-100.0) fL MCH 26.8 (25.0-35.0) pg MCHC 31.3 (31.0-37.0) g/dL RDW 15.9 H (11.5-15.5) % Plt Count 350 (150-450) k/uL Neutrophils % 82 % Lymphocytes % 13 % Monocytes % 3 % Eosinophils % 0 % Basophils % 0 % Neutrophils # 8.3 H (1.3-7.7) k/uL Lymphocytes # 1.3 (1.0-4.8) k/uL Monocytes # 0.3 (0-1.0) k/uL Eosinophils # 0.0 (0-0.7) k/uL Basophils # 0.0 (0-0.2) k/uL PT 35.5 H (9.0-12.0) sec INR 3.7 H (<1.2) APTT 26.5 (22.0-30.0) sec Sodium 137 (137-145) mmol/L Potassium 4.8 (3.5-5.1) mmol/L Chloride 106 (98-107) mmol/L Carbon Dioxide 23 (22-30) mmol/L Anion Gap 8 mmol/L BUN 32 H (7-17) mg/dL Creatinine 0.79 (0.52-1.04) mg/dL Est GFR (CKD-EPI)AfAm 79 (>60 ml/min/1.73 sqM) Est GFR (CKD-EPI)NonAf 69 (>60 ml/min/1.73 sqM) Glucose 164 H (74-99) mg/dL Calcium 9.2 (8.4-10.2) mg/dL Magnesium 1.8 (1.6-2.3) mg/dL Total Bilirubin 0.6 (0.2-1.3) mg/dL AST 40 H (14-36) U/L ALT 49 (9-52) U/L Alkaline Phosphatase 74 (38-126) U/L Troponin I (0.000-0.034) ng/mL Total Protein 6.2 L (6.3-8.2) g/dL Albumin 3.8 (3.5-5.0) g/dL 02/11/19 Range/Units 16:55 WBC (3.8-10.6) k/uL RBC (3.80-5.40) m/uL Hgb (11.4-16.0) gm/dL Hct (34.0-46.0) % MCV (80.0-100.0) fL MCH (25.0-35.0) pg MCHC (31.0-37.0) g/dL RDW (11.5-15.5) % Plt Count (150-450) k/uL Neutrophils % % Lymphocytes % % Monocytes % % Eosinophils % % Basophils % % Neutrophils # (1.3-7.7) k/uL Lymphocytes # (1.0-4.8) k/uL Monocytes # (0-1.0) k/uL Eosinophils # (0-0.7) k/uL Basophils # (0-0.2) k/uL PT (9.0-12.0) sec INR (<1.2) APTT (22.0-30.0) sec Sodium (137-145) mmol/L Potassium (3.5-5.1) mmol/L Chloride (98-107) mmol/L Carbon Dioxide (22-30) mmol/L Anion Gap mmol/L BUN (7-17) mg/dL Creatinine (0.52-1.04) mg/dL Est GFR (CKD-EPI)AfAm (>60 ml/min/1.73 sqM) Est GFR (CKD-EPI)NonAf (>60 ml/min/1.73 sqM) Glucose (74-99) mg/dL Calcium (8.4-10.2) mg/dL Magnesium (1.6-2.3) mg/dL Total Bilirubin (0.2-1.3) mg/dL AST (14-36) U/L ALT (9-52) U/L Alkaline Phosphatase (38-126) U/L Troponin I 0.059 H* (0.000-0.034) ng/mL Total Protein (6.3-8.2) g/dL Albumin (3.5-5.0) g/dL Critical Care Time Critical Care Time: Yes Total Critical Care Time: 35 Disposition Clinical Impression: Atrial fibrillation with rapid ventricular response Disposition: ADMITTED IP TO THIS HOSP Referrals: Barbara Rogers MD [Primary Care Provider] - 1-2 days Time of Disposition: 18:36
[2019-02-11 17:23] LABS: Basophils % (A) 0 %; Eosinophils % (A) 0 %; HCT 48.9 % (34.0-46.0); HGB 15.3 gm/dL (11.4-16.0); Lymphocytes # (A) 1.3 k/uL (1.0-4.8); Lymphocytes % (A) 13 %; MCH 26.8 pg (25.0-35.0); MCHC 31.3 g/dL (31.0-37.0); MCV 85.7 fL (80.0-100.0); Monocytes # (A) 0.3 k/uL (0-1.0); Monocytes % (A) 3 %; Neutrophils # (A) 8.3 k/uL (1.3-7.7); Neutrophils % (A) 82 %; Platelet Count 350 k/uL (150-450); RBC 5.71 m/uL (3.80-5.40); RDW 15.9 % (11.5-15.5); WBC 10.1 k/uL (3.8-10.6)
[2019-02-11] MEDS: DILTIAZEM 125 MG in SODIUM CHLORIDE 0.9% 100 ML IV SCH (17:26)
[2019-02-11 17:33] LABS: Albumin 3.8 g/dL (3.5-5.0); Calcium 9.2 mg/dL (8.4-10.2); Magnesium 1.8 mg/dL (1.6-2.3); Potassium 4.8 mmol/L (3.5-5.1); Total Bilirubin 0.6 mg/dL (0.2-1.3); Total Protein 6.2 g/dL (6.3-8.2)
[2019-02-11 17:38] LABS: INR 3.7 (<1.2); Partial Thromboplastin Time 26.5 sec (22.0-30.0); Prothrombin Time 35.5 sec (9.0-12.0)
--- NOTE | 2019-02-11 18:10 | XR ---
EXAMINATION: XR chest 2V DATE AND TIME: 02/11/2019 5:24 PM CLINICAL INDICATION: PHH; Chest Pain TECHNIQUE: Frontal and lateral COMPARISON: 02/03/2019 FINDINGS: The lungs are predominantly clear, but mild added opacity in the lung bases is seen bilaterally and l ikely represent subsegmental atelectasis - unless there is clinical evidence for bronchopneumonia. There is no pulmonary edema. The pleural spaces are negative. Sternal sutures and cardiac valve and mediastinal clips noted. The cardiac silhouette is mild moderat mone enlarged. The thoracic aorta is tortuous. The skeletal structures and soft tissues are negative for acute findings. IMPRESSION: NO DEFINITE ACUTE PROCESS.
[2019-02-11] MEDS ORDERED: NITROGLYCERIN SL TABS 0.4 MG TAB SUBLINGUAL PRN (18:38)
[2019-02-11 21:04] VITALS: BMI 24.9
[2019-02-12 07:38] LABS: Cholesterol 139 mg/dL (<200); HDL Cholesterol 59 mg/dL (40-60); LDL Cholesterol,Calculated 58 mg/dL (0-99); Triglycerides 110 mg/dL (<150)
[2019-02-12] MEDS: ASPIRIN 325 MG TAB PO SCH (09:36)
--- NOTE | 2019-02-12 11:27 | P.HPIM ---
History of Present Illness H&P Date: 02/12/19 This is an 88-year-old female patient who presented to the ER from her PCP with complaints of rapid heart rate. Patient has known past medical history of A. fib and flutter. Patient was recently here approximately 1 week ago and treated for influenza during that time patient did have episode of heart rate in the 130s and atrial flutter. Patient was seen by cardiology services. Patient's lisinopril and metoprolol were increased. At time of discharge patient is actually in the 50s. Patient reports that sometimes when she lays down she can feel her heart racing but really denies any other symptoms. Patient is on Coumadin. INR today 3.7. Past medical history of A. fib, GERD, hyperlipidemia, hypertension, CABG with valve repair in 2016 and recent treatment for influenza. EKG completed showing sinus tachycardia with a heart rate of 139. Patient's troponins also elevated at 0.059, 0.087 0.163. Cardiology services have been consulted. Patient started on Cardizem drip. Chest x-ray showing no definitive acute process. At this time patient is resting comfortably in chair. Patient denies chest pain or shortness of breath. Patient denies nausea vomiting or diarrhea. Patient denies any urinary burning or frequency. 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 She is independent. Smoking Status: Never smoker Past Alcohol Use History: None Reported Past Drug Use History: None Reported - Past Family History Father Family Medical History: Cancer Additional Family Medical History / Comment(s): Father of pancreatic cancer at the age of 53 yrs. Mother Family Medical History: AFIB, Diabetes Mellitus Additional Family Medical History / Comment(s): Mother lived to be 80yrs old. Medications and Allergies Home Medications Medication Instructions Recorded Confirmed Type Omeprazole 20 mg PO DAILY 01/04/18 02/11/19 History Pravastatin Sodium [Pravachol] 40 mg PO DAILY 01/04/18 02/11/19 History Warfarin [Coumadin] 2.5 mg PO MOFR 02/02/19 02/11/19 History Warfarin [Coumadin] 5 mg PO SUTUWETHSA 02/02/19 02/11/19 History Lisinopril [Zestril] 20 mg PO DAILY 30 Days #30 tab 02/06/19 02/11/19 Rx Metoprolol Succinate (ER) [Toprol 75 mg PO BID 30 Days #60 tab.er.24h 02/06/19 02/11/19 Rx XL] predniSONE See Taper PO DIRECTED 02/11/19 02/11/19 History Allergies Allergy/AdvReac Type Severity Reaction Status Date / Time No Known Allergies Allergy Verified 02/11/19 17:52 Physical Exam Vitals: Vital Signs Temp Pulse Pulse Resp BP BP Pulse Ox 02/12/19 08:00 97.6 F 64 18 121/67 92 L 02/12/19 04:30 71 18 137/79 93 L 02/12/19 00:49 97.8 F 71 18 137/77 92 L 02/11/19 20:01 97.8 F 138 H 15 123/84 94 L 02/11/19 19:51 140 H 16 118/93 92 L 02/11/19 19:00 138 H 16 119/92 02/11/19 18:30 140 H 17 118/88 02/11/19 18:00 140 H 16 113/90 02/11/19 17:31 113/90 02/11/19 17:30 140 H 18 137/107 02/11/19 17:29 140 H 18 137/107 02/11/19 16:37 98.2 F 139 H 20 160/112 96 Intake and Output 02/11/19 02/12/19 02/12/19 22:59 06:59 14:59 Intake Total 30.583 229.417 Output Total 0 Balance 30.583 229.417 Intake: IV 15 120 Diltiazem 125 mg In 15 120 Sodium Chloride 0.9% 100 ml @ 5 MG/HR 5 mls/hr IV .Q24H [facility] Rx#:[id number] Intake, IV Titration 15.583 109.417 Amount Diltiazem 125 mg In 15.583 109.417 Sodium Chloride 0.9% 100 ml @ 5 MG/HR 5 mls/hr IV .Q24H [facility] Rx#:[id number] Output: Urine 0 Other: # Voids 2 Weight 69.672 kg 67.8 kg Head normocephalic Neck supple Lungs clear to auscultation bilaterally no wheezing or crackles Heart regular rate and rhythm S1-S2, no rub or gallop Abdomen is soft nontender nondistended positive bowel sounds no hepatosplenomegaly Extremities no edema Neuro alert and orientated to 3 Results CBC & Chem 7: 02/11/19 16:55 02/11/19 16:55 Labs: Abnormal Lab Results - Last 24 Hours (Table) 02/11/19 02/11/19 02/11/19 Range/Units 16:55 16:55 16:55 RBC 5.71 H (3.80-5.40) m/uL Hct 48.9 H (34.0-46.0) % RDW 15.9 H (11.5-15.5) % Neutrophils # 8.3 H (1.3-7.7) k/uL PT 35.5 H (9.0-12.0) sec INR 3.7 H (<1.2) BUN 32 H (7-17) mg/dL Glucose 164 H (74-99) mg/dL AST 40 H (14-36) U/L Troponin I (0.000-0.034) ng/mL Total Protein 6.2 L (6.3-8.2) g/dL 02/11/19 02/11/19 02/12/19 Range/Units 16:55 22:26 06:00 RBC (3.80-5.40) m/uL Hct (34.0-46.0) % RDW (11.5-15.5) % Neutrophils # (1.3-7.7) k/uL PT (9.0-12.0) sec INR (<1.2) BUN (7-17) mg/dL Glucose (74-99) mg/dL AST (14-36) U/L Troponin I 0.059 H* 0.087 H* 0.163 H* (0.000-0.034) ng/mL Total Protein (6.3-8.2) g/dL Thrombosis Risk Factor Assmnt - Choose All That Apply Any of the Below Risk Factors Present?: Yes Each Factor Represents 1 point: Obesity (BMI >25) Other Risk Factors: Yes Each Risk Factor Represents 3 Points: Age 75 years or older Other congenital or acquired thrombophilia - If yes, enter type in comment: No Thrombosis Risk Factor Assessment Total Risk Factor Score: 4 Thrombosis Risk Factor Assessment Level: Moderate Risk Assessment and Plan Assessment: 1. A. fib with rapid ventricular response. Cardiology services have been consulted. Patient started on Cardizem drip patient is on Coumadin. Current INR 3.7. We'll hold Coumadin dose tonight. 2. Elevated troponins. 0.059, 0.087 and 0.163. Cardiology services have been consulted 3. Recent influenza. Patient has completed treatment. Patient is still on prednisone taper. Chest x-ray completed in ER showing no acute process 4. Paroxysmal atrial fibrillation. Patient is maintained on Coumadin. Current INR 3.7. We'll hold Coumadin dose tonight. PT/INRs daily 5. History of valve repair 6. History of essential hypertension. Patient's lisinopril and metoprolol with increased during previous admission due to hypertension and elevated heart rate 7. History of hyperlipidemia 8. History of GERD DVT prophylaxis Coumadin. GI prophylaxis omeprazole Cardiology services have been consulted. Time with Patient: Greater than 30 (Greater than 60% of the total time spent in counseling and coordination of care. I performed an examination of the patient and discussed their management with the Nurse Practitioner. I have reviewed the Nurse Practitioner's notes and agree with the documented findings and plan of care)
[2019-02-12 13:04] LABS: INR 2.7 (<1.2); Prothrombin Time 26.4 sec (9.0-12.0)
[2019-02-12] MEDS ORDERED: METOPROLOL SUCCINATE (ER) 25 MG TAB.ER.24H PO STA (13:21)
[2019-02-12] MEDS: DILTIAZEM 125 MG in SODIUM CHLORIDE 0.9% 100 ML IV SCH (17:21)
[2019-02-12] MEDS ORDERED: WARFARIN 3 MG TAB PO ONE (18:00)
--- NOTE | 2019-02-12 19:05 | CONS ---
CONSULTATION CHIEF COMPLAINT: Palpitations. Jose is an 88-year-old lady with a history of coronary artery disease, status post CABG, history of mitral valve repair, who was recently admitted to hospital with episodes of paroxysmal atrial fibrillation during a bout of influenza. She was discharged home on Coumadin and is readmitted with an episode of atrial fibrillation with rapid ventricular rate. Cardiology had been consulted for the same. She is treated with intravenous Cardizem with rate control. She is currently on Coumadin. INR is 3.7. We will wait until the INR comes below 3 and then resume Coumadin. At the time of my evaluation this morning, she appears comfortable at rest and is free of symptoms. She has mild troponin elevation at 0.05, 0.08 and 0.1, suggestive of elevated troponin secondary to supply-demand mismatch. PAST MEDICAL HISTORY: Significant for: 1. Coronary artery disease, status post CABG. 2. Paroxysmal atrial fibrillation. 3. Mitral valve repair. 4. Hypertension. 5. Dyslipidemia. 6. GERD. MEDICATIONS: Medications at home included: 1. Zestril. 2. Toprol XL. 3. Pravachol. 4. Omeprazole. 5. Coumadin. 6. Prednisone. ALLERGIES: NO KNOWN DRUG ALLERGIES. FAMILY HISTORY: Negative for premature coronary artery disease. SOCIAL HISTORY: Negative for smoking or EtOH abuse. REVIEW OF SYSTEMS: HEENT is unremarkable. CARDIAC: As described above. RESPIRATORY: As described above. GI: Negative. GENITOURINARY: Negative. ALLERGY/IMMUNOLOGY: Negative. SKIN: Negative. MUSCULOSKELETAL: Significant for arthritis. PSYCHOSOCIAL: Negative. ENDOCRINE: Negative. DERMATOLOGICAL: Negative. CONSTITUTIONAL: Negative. ONCOLOGICAL: Negative. ENGINEER SYSTEM ADMINISTRATOR: Negative. Rest of the system review is not relevant. PHYSICAL EXAMINATION: Comfortable at rest. Afebrile. Vital signs are stable. There is no jugular venous distention. Carotid upstroke is diminished. There is no bruit. Chest exam reveals diminished air entry at the bases. Heart exam reveals first and second heart sounds. No gallop. Has an irregular rhythm and a systolic murmur at the apex. Abdomen is soft. Examination of the extremities did not reveal any edema. Peripheral pulses are felt. The patient had an echocardiogram recently that showed an ejection fraction of 55% to 60%. LAB: INR is 3.7. Troponins are in the dempsey zone at 0.05, 0.08 and 0.1. LDL cholesterol is 58. Hemoglobin is 15.3, potassium 4.8, and creatinine is 0.7. ASSESSMENT: 1. Chronic atrial fibrillation with rapid ventricular rate. 2. Elevated troponin secondary to supply-demand mismatch myocardial infarction. 3. Coronary artery disease, status post coronary artery bypass grafting. 4. Mitral regurgitation, status post mitral valve repair. PLAN: Will resume Coumadin. Will give her 2.5 mg of Coumadin today. Hopefully home tomorrow. MMODL / IJN: [id number] /
[2019-02-12] MEDS: METOPROLOL SUCCINATE (ER) 25 MG TAB.ER.24H PO SCH (20:20)
[2019-02-13] MEDS: PANTOPRAZOLE 40 MG TABLET PO SCH (06:30)
[2019-02-13 06:55] LABS: Albumin 3.1 g/dL (3.5-5.0); Calcium 8.6 mg/dL (8.4-10.2); Potassium 4.5 mmol/L (3.5-5.1); Total Protein 5.3 g/dL (6.3-8.2)
[2019-02-13 06:56] LABS: Anisocytosis Slight; Basophils % (A) 0 %; Eosinophils # (A) 0.1 k/uL (0-0.7); Eosinophils % (A) 1 %; HCT 46.9 % (34.0-46.0); HGB 14.9 gm/dL (11.4-16.0); INR 2.6 (<1.2); Lymphocytes # (A) 1.9 k/uL (1.0-4.8); Lymphocytes % (A) 17 %; MCH 27.2 pg (25.0-35.0); MCHC 31.9 g/dL (31.0-37.0); MCV 85.3 fL (80.0-100.0); Mean Platelet Volume 6.6; Monocytes # (A) 0.5 k/uL (0-1.0); Monocytes % (A) 4 %; Neutrophils # (A) 8.9 k/uL (1.3-7.7); Neutrophils % (A) 77 %; Platelet Count 297 k/uL (150-450); RBC 5.49 m/uL (3.80-5.40); RDW 16.2 % (11.5-15.5); WBC 11.5 k/uL (3.8-10.6)
[2019-02-13] MEDS: predniSONE 10 MG TAB PO SCH (09:13)
[2019-02-13] MEDS: METOPROLOL SUCCINATE (ER) 25 MG TAB.ER.24H PO SCH ×2 (09:13→21:36)
[2019-02-13] MEDS: PRAVASTATIN SODIUM 40 MG TAB PO SCH (09:14)
[2019-02-13] MEDS: LISINOPRIL 20 MG TAB PO SCH (09:14)
[2019-02-13] MEDS: ASPIRIN 325 MG TAB PO SCH (09:14)
[2019-02-13] MEDS ORDERED: CALCIUM CARBONATE 500 MG CHEWABLE PO PRN (10:56)
--- NOTE | 2019-02-13 11:14 | CDI ---
Documentation Clarification Form Date: 02/13/2019 10:46:44 AM From: Vikki Alejandro RN CCDS Admit Date: 02/11/2019 6:38:00 PM Patient Name: Jose Crowder Visit Number: [id number] Discharge Date: ATTENTION: The Clinical Documentation Specialists (CDI) and [facility] Coding Staff appreciate your assistance in clarifying documentation. Please respond to the clarification below the line at the bottom and electronically sign. The CDI & [facility] Coding staff will review the response and follow-up if needed. Please note: Queries are made part of the Legal Health Record. If you have any questions, please contact the author of this message via ITS. Dr. Rodolfo Hawkins Elevated troponin secondary to supply and demand mismatch myocardial infarction Is documented in your Consult. Patient History/Risk Factors: 88 year old female presents to [facility] from PCP for Atrial fib and high blood pressure. Medical history HTN, Atrial fibrillation, CABG, Clinical Indicators: Troponin: 0.059 ; 0.087; 0.163 Treatment: Aspirin; Nitrostat Consult: Cardiology In your professional opinion, can you please clarify myocardial infarction is * NSTEMI Type II secondary to Atrial fibrillation RVR * NSTEMI Type II secondary to * NSTEMI Type 1 * Other, please specify * Unable to determine (Last Revision: January 2018) ____option 1 MTDD
--- NOTE | 2019-02-13 14:38 | P.PN ---
Subjective Progress Note Date: 02/13/19 This is an 88-year-old female patient who presented to the ER from her PCP with complaints of rapid heart rate. Patient has known past medical history of A. fib and flutter. Patient was recently here approximately 1 week ago and treated for influenza during that time patient did have episode of heart rate in the 130s and atrial flutter. Patient was seen by cardiology services. Patient's lisinopril and metoprolol were increased. At time of discharge patient is actually in the 50s. Patient reports that sometimes when she lays down she can feel her heart racing but really denies any other symptoms. Patient is on Coumadin. INR today 3.7. Past medical history of A. fib, GERD, hyperlipidemia, hypertension, CABG with valve repair in 2016 and recent treatment for influenza. EKG completed showing sinus tachycardia with a heart rate of 139. Patient's troponins also elevated at 0.059, 0.087 0.163. Cardiology services have been consulted. Patient started on Cardizem drip. Chest x-ray showing no definitive acute process. At this time patient is resting comfortably in chair. Patient denies chest pain or shortness of breath. Patient denies nausea vomiting or diarrhea. Patient denies any urinary burning or frequency On 02/13/2019 alert and oriented 3. Patient is a normal sinus rhythm. Patient is back on home medications. Awaiting cardiology for further adjustment. Patient is still having some weakness and diarrhea. C. diff negative. At this time patient denies chest pain or shortness breath. Denies nausea or vomitting Objective - Vital Signs Vital signs: Vital Signs Temp 97.7 F 02/13/19 11:48 Pulse 81 02/13/19 11:48 Resp 16 02/13/19 11:48 BP 138/80 02/13/19 11:48 Pulse Ox 94 L 02/13/19 11:48 Intake & Output 02/12/19 02/13/19 02/13/19 18:59 06:59 18:59 Intake Total 236 360 Output Total 0 Balance 236 360 Weight 67.8 kg Intake: Oral 236 360 Output: Urine 0 Other: # Voids 2 2 1 # Bowel Movements 2 - Exam Head normocephalic Neck supple Lungs clear to auscultation bilaterally no wheezing or crackles Heart regular rate and rhythm S1-S2, no rub or gallop Abdomen is soft nontender nondistended positive bowel sounds no hepatosplenomegaly Extremities no edema Neuro alert and orientated to 3 - Labs CBC & Chem 7: 02/13/19 06:13 02/13/19 06:13 Labs: Abnormal Lab Results - Last 24 Hours (Table) 02/13/19 02/13/19 02/13/19 Range/Units 06:13 06:13 06:13 WBC 11.5 H (3.8-10.6) k/uL RBC 5.49 H (3.80-5.40) m/uL Hct 46.9 H (34.0-46.0) % RDW 16.2 H (11.5-15.5) % Neutrophils # 8.9 H (1.3-7.7) k/uL PT 25.0 H (9.0-12.0) sec INR 2.6 H (<1.2) BUN 26 H (7-17) mg/dL Glucose 107 H (74-99) mg/dL Total Protein 5.3 L (6.3-8.2) g/dL Albumin 3.1 L (3.5-5.0) g/dL Assessment and Plan Assessment: 1. A. fib with rapid ventricular response. Cardiology services have been consulted. Patient started on Cardizem drip patient is on Coumadin. Current INR 2.6. Pharmacy to dose Coumadin. Patient is back on home medications. Awaiting cardiology for further adjustment 2. Elevated troponins. 0.059, 0.087 and 0.163. Cardiology services have been consulted 3. Recent influenza. Patient has completed treatment. Patient is still on prednisone taper. Chest x-ray completed in ER showing no acute process 4. Paroxysmal atrial fibrillation. Patient is maintained on Coumadin. Current INR 3.7. We'll hold Coumadin dose tonight. PT/INRs daily 5. History of valve repair 6. History of essential hypertension. Patient's lisinopril and metoprolol with increased during previous admission due to hypertension and elevated heart rate 7. History of hyperlipidemia 8. History of GERD DVT prophylaxis Coumadin. GI prophylaxis omeprazole I performed an examination of the patient and discussed their management with the Nurse Practitioner. I have reviewed the Nurse Practitioner's notes and agree with the documented findings and plan of care
--- NOTE | 2019-02-13 15:16 | P.PN ---
Subjective Progress Note Date: 02/13/19 This is an 88-year-old lady with history of coronary artery disease status post coronary bypass grafting surgery, history of mitral valve repair, who was recently in the hospital with episodes of paroxysmal atrial fibrillation during a bout of influenza. She was discharged home on Coumadin and again readmitted with atrial fibrillation with rapid ventricular response. Her INR remained subtherapeutic. She is currently on metoprolol 75 mg one tablet by mouth twice a day which is the same dose that she takes at home. We will add verapamil SR 120 mg to her medication regime as well. Blood pressure 138/80 with a heart rate in the 80s, 94% on room air. White blood cell count 11.5, hemoglobin 14, platelet count 297. INR 2.6. Sodium 138, potassium 4.5, BUN 26 and creatinine 0.8. Objective - Vital Signs Vital signs: Vital Signs Temp 97.7 F 02/13/19 11:48 Pulse 81 02/13/19 11:48 Resp 16 02/13/19 11:48 BP 138/80 02/13/19 11:48 Pulse Ox 94 L 02/13/19 11:48 Intake & Output 02/12/19 02/13/19 02/13/19 18:59 06:59 18:59 Intake Total 236 360 Output Total 0 Balance 236 360 Weight 67.8 kg Intake: Oral 236 360 Output: Urine 0 Other: # Voids 2 2 1 # Bowel Movements 2 - Exam Head normocephalic Neck supple Lungs clear to auscultation bilaterally no wheezing or crackles Heart regular rate and rhythm S1-S2, no rub or gallop Abdomen is soft nontender nondistended positive bowel sounds no hepatosplenomegaly Extremities no edema Neuro alert and orientated to 3 - Labs CBC & Chem 7: 02/13/19 06:13 02/13/19 06:13 Labs: Abnormal Lab Results - Last 24 Hours (Table) 02/13/19 02/13/19 02/13/19 Range/Units 06:13 06:13 06:13 WBC 11.5 H (3.8-10.6) k/uL RBC 5.49 H (3.80-5.40) m/uL Hct 46.9 H (34.0-46.0) % RDW 16.2 H (11.5-15.5) % Neutrophils # 8.9 H (1.3-7.7) k/uL PT 25.0 H (9.0-12.0) sec INR 2.6 H (<1.2) BUN 26 H (7-17) mg/dL Glucose 107 H (74-99) mg/dL Total Protein 5.3 L (6.3-8.2) g/dL Albumin 3.1 L (3.5-5.0) g/dL Assessment and Plan Plan: Assessment: 1. A. fib with rapid ventricular response. 2. Elevated troponins. 0.059, 0.087 and 0.163. Likely secondary to atrial fibrillation with rapid ventricular response 3. Recent influenza. 4. Paroxysmal atrial fibrillation. Patient is maintained on Coumadin. Current INR 2.6. 5. History of mitral valve repair 6. History of essential hypertension. 7. History of hyperlipidemia 8. History of GERD #9 history of coronary artery disease with prior bypass surgery Plan We will add verapamil 120 mg to the patient's medication regime. Plan on possible discharge home in 24 hours if stable. DNP note has been reviewed, I agree with a documented findings and plan of care. Patient was seen and examined.
[2019-02-13] MEDS: VERAPAMIL SR 120 MG TABLET.ER PO SCH (16:04)
[2019-02-13] MEDS ORDERED: WARFARIN 2.5 MG TAB PO ONE (18:00)
[2019-02-13 20:39] VITALS: RESP 18
[2019-02-13 20:42] LABS: Glucose,Whole Blood 148 mg/dL (75-99)
[2019-02-14 05:39] LABS: Glucose,Whole Blood 96 mg/dL (75-99)
[2019-02-14 07:49] LABS: Basophils % (A) 0 %; Eosinophils # (A) 0.1 k/uL (0-0.7); Eosinophils % (A) 1 %; HCT 45.7 % (34.0-46.0); HGB 14.5 gm/dL (11.4-16.0); Lymphocytes # (A) 2.2 k/uL (1.0-4.8); Lymphocytes % (A) 17 %; MCHC 31.7 g/dL (31.0-37.0); MCV 85.3 fL (80.0-100.0); Mean Platelet Volume 6.2; Monocytes # (A) 0.5 k/uL (0-1.0); Monocytes % (A) 4 %; Neutrophils # (A) 10.2 k/uL (1.3-7.7); Neutrophils % (A) 77 %; Platelet Count 276 k/uL (150-450); RBC 5.36 m/uL (3.80-5.40); RDW 15.8 % (11.5-15.5); WBC 13.2 k/uL (3.8-10.6)
[2019-02-14 08:00] LABS: INR 2.5 (<1.2); Prothrombin Time 24.4 sec (9.0-12.0)
[2019-02-14 08:07] LABS: ALT 40 U/L (9-52); AST 27 U/L (14-36); Albumin 3.4 g/dL (3.5-5.0); Alkaline Phosphatase 62 U/L (38-126); Anion Gap 4 mmol/L; Blood Urea Nitrogen 25 mg/dL (7-17); Calcium 8.9 mg/dL (8.4-10.2); Carbon Dioxide 28 mmol/L (22-30); Chloride 104 mmol/L (98-107); Glucose 124 mg/dL (74-99); Potassium 4.2 mmol/L (3.5-5.1); Sodium 136 mmol/L (137-145); Total Bilirubin 0.9 mg/dL (0.2-1.3); Total Protein 5.7 g/dL (6.3-8.2)
[2019-02-14] MEDS: METOPROLOL SUCCINATE (ER) 25 MG TAB.ER.24H PO SCH (09:03)
[2019-02-14] MEDS: predniSONE 10 MG TAB PO SCH (09:03)
[2019-02-14] MEDS: LISINOPRIL 20 MG TAB PO SCH (09:03)
[2019-02-14] MEDS: PRAVASTATIN SODIUM 40 MG TAB PO SCH (09:03)
[2019-02-14] MEDS: VERAPAMIL SR 120 MG TABLET.ER PO SCH (09:03)
[2019-02-14] MEDS: PANTOPRAZOLE 40 MG TABLET PO SCH (09:03)
[2019-02-14 11:02] VITALS: BP 106/69; PULSE 60; TEMP 97.1
--- NOTE | 2019-02-14 11:16 | P.DS ---
Providers Date of admission: 02/11/19 18:38 Expected date of discharge: 02/14/19 Attending physician: Barbara Rogers Consults: 02/11/19 18:38 Consult Physician Urgent Consulting Provider: [facility] Consult Reason/Comments: A. fib with rapid ventricular response Do you want consulting provider notified?: Yes Primary care physician: [facility] Course: This is an 88-year-old female patient who presented to the ER from her PCP with complaints of rapid heart rate. Patient has known past medical history of A. fib and flutter. Patient was recently here approximately 1 week ago and treated for influenza during that time patient did have episode of heart rate in the 130s and atrial flutter. Patient was seen by cardiology services. Patient's lisinopril and metoprolol were increased. At time of discharge patient is actually in the 50s. Patient reports that sometimes when she lays down she can feel her heart racing but really denies any other symptoms. Patient is on Coumadin. INR today 2.5. Past medical history of A. fib, GERD, hyperlipidemia, hypertension, CABG with valve repair in 2016 and recent treatment for influenza. EKG completed showing sinus tachycardia with a heart rate of 139. Patient's troponins also elevated at 0.059, 0.087 0.163. Cardiology services have been consulted. Patient started on Cardizem drip and transitioned to verapamil PO. Chest x-ray showing no definitive acute process. At this time patient is resting comfortably in chair on room air. Patient denies chest pain or shortness of breath. Patient denies nausea vomiting or diarrhea. Patient denies any urinary burning or frequency. Patient has been rate controlled with rate in the 60's. She has been cleared by cardiology for discharge. Patient Condition at Discharge: Fair Plan - Discharge Summary Discharge Rx Participant: Yes New Discharge Prescriptions: New Verapamil Sr [Isoptin Sr] 120 mg PO DAILY 30 Days #30 tablet.er Nitroglycerin Sl Tabs [Nitrostat] 0.4 mg SUBLINGUAL Q5M PRN #10 tab PRN Reason: Chest Pain predniSONE 10 mg PO DAILY 6 Days #12 tab Continue Pravastatin Sodium [Pravachol] 40 mg PO DAILY Omeprazole 20 mg PO DAILY Warfarin [Coumadin] 5 mg PO SUTUWETHSA Warfarin [Coumadin] 2.5 mg PO MOFR Metoprolol Succinate (ER) [Toprol XL] 75 mg PO BID 30 Days #60 tab.er.24h Lisinopril [Zestril] 20 mg PO DAILY 30 Days #30 tab Discontinued predniSONE See Taper PO DIRECTED Discharge Medication List Omeprazole 20 mg PO DAILY 01/04/18 [History] Pravastatin Sodium [Pravachol] 40 mg PO DAILY 01/04/18 [History] Warfarin [Coumadin] 2.5 mg PO MOFR 02/02/19 [History] Warfarin [Coumadin] 5 mg PO SUTUWETHSA 02/02/19 [History] Lisinopril [Zestril] 20 mg PO DAILY 30 Days #30 tab 02/06/19 [Rx] Metoprolol Succinate (ER) [Toprol XL] 75 mg PO BID 30 Days #60 tab.er.24h 02/06/19 [Rx] Nitroglycerin Sl Tabs [Nitrostat] 0.4 mg SUBLINGUAL Q5M PRN #10 tab 02/14/19 [Rx] Verapamil Sr [Isoptin Sr] 120 mg PO DAILY 30 Days #30 tablet.er 02/14/19 [Rx] predniSONE 10 mg PO DAILY 6 Days #12 tab 02/14/19 [Rx] Follow up Appointment(s)/Referral(s): Bar Tineo MD [STAFF PHYSICIAN] - 03/02/19 10:45 am (Saturday -previously scheduled appointment) Barbara Rogers MD [Primary Care Provider] - 1-2 days Linus Whiting MD [STAFF PHYSICIAN] - 03/10/19 8:30 am (Saturday -previously scheduled appointment) Ambulatory/Diagnostic Orders: Prothrombin Time INR [LAB.AMB] Time Frame: 3 Days, Location: None Selected Discharge Disposition: HOME SELF-CARE
--- NOTE | 2019-02-14 11:38 | P.PN ---
Subjective Progress Note Date: 02/14/19 This is an 88-year-old lady with history of coronary artery disease status post coronary bypass grafting surgery, history of mitral valve repair, who was recently in the hospital with episodes of paroxysmal atrial fibrillation during a bout of influenza. She was discharged home on Coumadin and again readmitted with atrial fibrillation with rapid ventricular response. Her INR remained subtherapeutic. She is currently on metoprolol 75 mg one tablet by mouth twice a day which is the same dose that she takes at home. We will add verapamil SR 120 mg to her medication regime as well. Blood pressure 138/80 with a heart rate in the 80s, 94% on room air. White blood cell count 11.5, hemoglobin 14, platelet count 297. INR 2.6. Sodium 138, potassium 4.5, BUN 26 and creatinine 0.8. 02/14/2019 Patient seen and examined this morning, overall doing well. Blood pressure 130/80 with a heart rate remaining in the 60s today. Tolerating the verapamil which was added yesterday fairly well. Objective - Vital Signs Vital signs: Vital Signs Temp 97.1 F L 02/14/19 08:00 Pulse 60 02/14/19 08:00 Resp 18 02/14/19 08:00 BP 106/69 02/14/19 08:00 Pulse Ox 96 02/14/19 08:00 Intake & Output 02/13/19 02/14/19 02/14/19 18:59 06:59 18:59 Intake Total 480 Output Total 400 Balance 480 -400 Weight 67.1 kg Intake: Oral 480 Output: Urine 400 Other: # Voids 1 1 1 - Exam Head normocephalic Neck supple Lungs clear to auscultation bilaterally no wheezing or crackles Heart regular rate and rhythm S1-S2, no rub or gallop Abdomen is soft nontender nondistended positive bowel sounds no hepatosplenomegaly Extremities no edema Neuro alert and orientated to 3 - Labs CBC & Chem 7: 02/14/19 07:04 02/14/19 07:04 Labs: Abnormal Lab Results - Last 24 Hours (Table) 02/13/19 02/14/19 02/14/19 Range/Units 20:41 07:04 07:04 WBC 13.2 H (3.8-10.6) k/uL RDW 15.8 H (11.5-15.5) % Neutrophils # 10.2 H (1.3-7.7) k/uL PT 24.4 H (9.0-12.0) sec INR 2.5 H (<1.2) Sodium (137-145) mmol/L BUN (7-17) mg/dL Glucose (74-99) mg/dL POC Glucose (mg/dL) 148 H (75-99) mg/dL Total Protein (6.3-8.2) g/dL Albumin (3.5-5.0) g/dL 02/14/19 Range/Units 07:04 WBC (3.8-10.6) k/uL RDW (11.5-15.5) % Neutrophils # (1.3-7.7) k/uL PT (9.0-12.0) sec INR (<1.2) Sodium 136 L (137-145) mmol/L BUN 25 H (7-17) mg/dL Glucose 124 H (74-99) mg/dL POC Glucose (mg/dL) (75-99) mg/dL Total Protein 5.7 L (6.3-8.2) g/dL Albumin 3.4 L (3.5-5.0) g/dL Assessment and Plan Plan: Assessment: 1. A. fib with rapid ventricular response. 2. Elevated troponins. 0.059, 0.087 and 0.163. Likely secondary to atrial fibrillation with rapid ventricular response 3. Recent influenza. 4. Paroxysmal atrial fibrillation. Patient is maintained on Coumadin. Current INR 2.6. 5. History of mitral valve repair 6. History of essential hypertension. 7. History of hyperlipidemia 8. History of GERD #9 history of coronary artery disease with prior bypass surgery Plan From cardiology's perspective, patient may be able to be discharged home once cleared by primary. We'll make a follow-up appointment in the office post discharge. DNP note has been reviewed, I agree with a documented findings and plan of care. Patient was seen and examined.
[2019-02-14] MEDS ORDERED: WARFARIN 2.5 MG TAB PO ONE (18:00)
--- NOTE | 2019-02-17 12:03 | CDI ---
unable to determine Documentation Clarification Form Date: 02/17/19 From: Vonnie Reyes Phone: If questions call Dimple Leo @ [phone], Hours-8:30 am & 5 pm M- F Admit Date: 02/11/2019 6:38:00 PM Patient Name: Jose Crowder Visit Number: [id number] Discharge Date: 02/14/2019 1:09:00 PM ATTENTION: The Clinical Documentation Specialists (CDI) and [facility] Coding Staff appreciate your assistance in clarifying documentation. Please respond to the clarification below the line at the bottom and electronically sign. The CDI & [facility] Coding staff will review the response and follow-up if needed. Please note: Queries are made part of the Legal Health Record. If you have any questions, please contact the author of this message via ITS. Dr. Randee Tong Atrial Flutter is documented in the ED note, H&P, 02/13 PN and DS. History/Risk factors: Paroxysmal atrial fibrillation, CAD, CABG, heart valve prosthesis EKG/telemetry: atrial flutter potentially at 139 bpm IN interval is on a 54 QRS 150 QT interval 388 QTC is 590 (ED) Treatment: Cardizem drip w bolus In your professional opinion, in order to capture the severity of condition; can you please clarify the type of Atrial Flutter if known? Typical/Type I Atypical/Type II Other, please specify Unable to determine MTDD
== END 2019-02-14 13:09 | disposition home or self-care (01) | DRG 282 ==
LOC: EC 16:29 → 3SCARD 18:38
PROVIDERS: ADMIT Internal Medicine; ATTEND Internal Medicine
DX: I48.0 Paroxysmal atrial fibrillation (principal); I21.A1 Myocardial infarction type 2; I48.92 Unspecified atrial flutter; K21.9 Gastro-esophageal reflux disease without esophagitis; E78.5 Hyperlipidemia, unspecified; I25.10 Atherosclerotic heart disease of native coronary artery without angina pectoris; I10 Essential (primary) hypertension; M19.042 Primary osteoarthritis, left hand; M19.041 Primary osteoarthritis, right hand; Z79.01 Long term (current) use of anticoagulants; Z79.899 Other long term (current) drug therapy; Z85.828 Personal history of other malignant neoplasm of skin; Z90.49 Acquired absence of other specified parts of digestive tract; Z95.1 Presence of aortocoronary bypass graft; Z90.710 Acquired absence of both cervix and uterus; Z95.2 Presence of prosthetic heart valve; Z80.0 Family history of malignant neoplasm of digestive organs; Z83.3 Family history of diabetes mellitus; Z82.49 Family history of ischemic heart disease and other diseases of the circulatory system
CPT/HCPCS: 36415; 71046; 80053; 80061; 83735; 84443; 84484; 85025; 85610; 85730; 87324; 93005; 96365; 96366; 96376; 99291

== ENCOUNTER 2019-04-05 14:19 | Inpatient (IN) | payer MEDICARE, BC ==
[2019-04-05] MEDS ORDERED: FUROSEMIDE 10 MG/ML 4 ML VIAL IV STA (14:45)
[2019-04-05] MEDS ORDERED: SODIUM CHLORIDE 0.9% 1,000 ML IV STA (14:45)
--- NOTE | 2019-04-05 14:54 | ED ---
General Adult HPI - General Source: patient, family, RN notes reviewed, old records reviewed Limitations: no limitations <Mary An - Last Filed: 04/05/19 17:13> <Jose E Zuñiga - Last Filed: 04/05/19 19:22> - General Chief complaint: Shortness of Breath Stated complaint: CHRISTA Time Seen by Provider: 04/05/19 14:35 - History of Present Illness Initial comments: Patient is a 88 rolled female presents today with difficulty breathing, b ilateral ankle swelling for the past week. She reports that she saw her buttermaker continuous churn for an INR check. His elevated on Saturday at 5.6. She was told to hold her Coumadin from the point forward until today. Patient states that she has a history of heart valve replacement, and A. fib. Patient states that she has had no recent fevers or chills. She reports that her dyspnea is worse with laying down. (Mary An) - Related Data Home Medications Medication Instructions Recorded Confirmed Omeprazole 20 mg PO DAILY 01/04/18 04/05/19 Pravastatin Sodium [Pravachol] 40 mg PO DAILY 01/04/18 04/05/19 Warfarin [Coumadin] 2.5 mg PO MOWEFRSA 02/02/19 04/05/19 Warfarin [Coumadin] 5 mg PO SUTUTH 02/02/19 04/05/19 Previous Rx's Medication Instructions Recorded Lisinopril [Zestril] 20 mg PO DAILY 30 Days #30 tab 02/06/19 Metoprolol Succinate (ER) [Toprol 75 mg PO BID 30 Days #60 tab.er.24h 02/06/19 XL] Nitroglycerin Sl Tabs [Nitrostat] 0.4 mg SUBLINGUAL Q5M PRN #10 tab 02/14/19 Verapamil Sr [Isoptin Sr] 120 mg PO DAILY 30 Days #30 02/14/19 tablet.er Allergies Allergy/AdvReac Type Severity Reaction Status Date / Time No Known Allergies Allergy Verified 04/05/19 15:12 Review of Systems ROS Other: All systems not noted in ROS Statement are negative. <Mary An - Last Filed: 04/05/19 17:13> ROS Other: All systems not noted in ROS Statement are negative. <Jose E Zuñiga - Last Filed: 06/09/19 19:22> ROS Statement: Those systems with pertinent positive or pertinent negative responses have been documented in the HPI. 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, skin cancer with removals History of Any Multi-Drug Resistant Organisms: None Reported Past Surgical History: Appendectomy, Cardiac Valve Replacement, Coronary By pass/CABG, Hysterectomy, Joint Replacement Additional Past Surgical History / Comment(s): Valve repair Dec 13, 2015 Past Anesthesia/Blood Transfusion Reactions: No Reported Reaction Past Psychological History: No Psychological Hx Reported Smoking Status: Never smoker Past Alcohol Use History: None Reported Past Drug Use History: None Reported - Past Family History Father Family Medical History: Cancer Additional Family Medical History / Comment(s): Father of pancreatic cancer at the age of 53 yrs. Mother Family Medical History: AFIB, Diabetes Mellitus Additional Family Medical History / Comment(s): Mother lived to be 80yrs old. <Mary An - Last Filed: 04/05/19 17:13> General Exam Limitations: no limitations General appearance: alert, in no apparent distress Head exam: Present: atraumatic, normocephalic, normal inspection Eye exam: Present: normal appearance, PERRL, EOMI. Absent: scleral icterus, conjunctival injection, periorbital swelling ENT exam: Present: normal exam, mucous membranes moist Neck exam: Present: normal inspection. Absent: tenderness, meningismus, lymphadenopathy Respiratory exam: Present: decreased breath sounds (Crackles noted in bilateral lung bases.). Absent: normal lung sounds bilaterally, respiratory distress, wheezes, rales, rhonchi, stridor Cardiovascular Exam: Present: regular rate, normal rhythm, normal heart sounds. Absent: systolic murmur, diastolic murmur, rubs, gallop, clicks GI/Abdominal exam: Present: soft, normal bowel sounds. Absent: distended, tenderness, guarding, rebound, rigid Extremities exam: Present: normal inspection, full ROM, normal capillary refill, other (Bilateral pedal edema). Absent: tenderness, pedal edema, joint swelling, calf tenderness Back exam: Present: normal inspection Neurological exam: Present: alert, oriented X3, CN II-XII intact Psychiatric exam: Present: normal affect, normal mood Skin exam: Present: warm, dry, intact, normal color. Absent: rash <Mary An - Last Filed: 04/05/19 17:13> - General Exam Comments Initial Comments: 88-year-old female. Alert and oriented 3. Patient appears in no significant distress. (Mary An) Course <Jose E Zuñiga - Last Filed: 04/05/19 19:22> Vital Signs 04/05/19 04/05/19 04/05/19 14:29 14:45 15:00 Temperature 97.5 F L Pulse Rate 88 85 Respiratory 20 16 32 H Rate Blood Pressure 111/70 113/91 O2 Sat by Pulse 97 96 Oximetry 04/05/19 04/05/19 04/05/19 15:30 16:00 19:15 Temperature Pulse Rate 98 115 H 102 H Respiratory 23 20 20 Rate Blood Pressure 99/73 111/85 130/81 O2 Sat by Pulse 96 97 98 Oximetry - Reevaluation(s) Reevaluation #1: 04/05/19 16:49 PA supervision: I proceeded [id number] evaluation the patient she does demonstrate evidence of congestive failure with bibasilar rales also peripheral edema. She's had source of breath exertional dyspnea for about a week and especially bad over last 1 or 2 days. Also of note she recently had been found have elevated INR in the 5+ range it currently as 1.7. She reports no chest pain she does also have chronic atrial fibrillation she denies any palpitations at this time. X-ray does show evidence of congestive failure with bilateral small pleural effusions. Patient will be admitted the case is discussed with Dr. Rogers. (Jose E Zuñiga) Medical Decision Making - Lab Data Result diagrams: 04/05/19 15:03 04/05/19 15:03 - Radiology Data Radiology results: report reviewed <Mary An - Last Filed: 04/05/19 17:13> - Lab Data Result diagrams: 04/05/19 15:03 04/05/19 15:03 <Jose E Zuñiga - Last Filed: 04/05/19 19:22> - Medical Decision Making Patient 8 rolled female was prescribed today with bilateral lower extremity edema. Patient has worsening shortness of breath, orthopnea. Patient's EKG was negative for any acute process. No evidence of A. fib. Troponins normal. Patient has evidence of pleural effusions bilaterally and elevated BNP at this time. He was initially on heparin, and Patient will be admitted for CHF exacerbation. Discussed case with Dr. Zuñiga who discussed this with Dr. Rogers. (Mary An) - Lab Data Lab Results 04/05/19 04/05/19 04/05/19 Range/Units 15:03 15:03 15:03 WBC 7.3 (3.8-10.6) k/uL RBC 4.59 (3.80-5.40) m/uL Hgb 12.4 (11.4-16.0) gm/dL Hct 38.7 (34.0-46.0) % MCV 84.3 (80.0-100.0) fL MCH 26.9 (25.0-35.0) pg MCHC 31.9 (31.0-37.0) g/dL RDW 16.7 H (11.5-15.5) % Plt Count 238 (150-450) k/uL Neutrophils % 64 % Lymphocytes % 24 % Monocytes % 7 % Eosinophils % 3 % Basophils % 1 % Neutrophils # 4.6 (1.3-7.7) k/uL Lymphocytes # 1.8 (1.0-4.8) k/uL Monocytes # 0.5 (0-1.0) k/uL Eosinophils # 0.2 (0-0.7) k/uL Basophils # 0.1 (0-0.2) k/uL Hypochromasia Slight Anisocytosis Slight PT (9.0-12.0) sec INR (<1.2) APTT (22.0-30.0) sec Sodium 138 (137-145) mmol/L Potassium 4.6 (3.5-5.1) mmol/L Chloride 110 H (98-107) mmol/L Carbon Dioxide 23 (22-30) mmol/L Anion Gap 5 mmol/L BUN 31 H (7-17) mg/dL Creatinine 0.85 (0.52-1.04) mg/dL Est GFR (CKD-EPI)AfAm 72 (>60 ml/min/1.73 sqM) Est GFR (CKD-EPI)NonAf 63 (>60 ml/min/1.73 sqM) Glucose 127 H (74-99) mg/dL Calcium 8.5 (8.4-10.2) mg/dL Magnesium 1.6 (1.6-2.3) mg/dL Total Bilirubin 0.7 (0.2-1.3) mg/dL AST 58 H (14-36) U/L ALT 28 (9-52) U/L Alkaline Phosphatase 61 (38-126) U/L Troponin I (0.000-0.034) ng/mL NT-Pro-B Natriuret Pep 3450 pg/mL Total Protein 5.2 L (6.3-8.2) g/dL Albumin 3.1 L (3.5-5.0) g/dL 04/05/19 04/05/19 Range/Units 15:03 15:03 WBC (3.8-10.6) k/uL RBC (3.80-5.40) m/uL Hgb (11.4-16.0) gm/dL Hct (34.0-46.0) % MCV (80.0-100.0) fL MCH (25.0-35.0) pg MCHC (31.0-37.0) g/dL RDW (11.5-15.5) % Plt Count (150-450) k/uL Neutrophils % % Lymphocytes % % Monocytes % % Eosinophils % % Basophils % % Neutrophils # (1.3-7.7) k/uL Lymphocytes # (1.0-4.8) k/uL Monocytes # (0-1.0) k/uL Eosinophils # (0-0.7) k/uL Basophils # (0-0.2) k/uL Hypochromasia Anisocytosis PT 16.6 H (9.0-12.0) sec INR 1.7 H (<1.2) APTT 19.9 L (22.0-30.0) sec Sodium (137-145) mmol/L Potassium (3.5-5.1) mmol/L Chloride (98-107) mmol/L Carbon Dioxide (22-30) mmol/L Anion Gap mmol/L BUN (7-17) mg/dL Creatinine (0.52-1.04) mg/dL Est GFR (CKD-EPI)AfAm (>60 ml/min/1.73 sqM) Est GFR (CKD-EPI)NonAf (>60 ml/min/1.73 sqM) Glucose (74-99) mg/dL Calcium (8.4-10.2) mg/dL Magnesium (1.6-2.3) mg/dL Total Bilirubin (0.2-1.3) mg/dL AST (14-36) U/L ALT (9-52) U/L Alkaline Phosphatase (38-126) U/L Troponin I <0.012 (0.000-0.034) ng/mL NT-Pro-B Natriuret Pep pg/mL Total Protein (6.3-8.2) g/dL Albumin (3.5-5.0) g/dL 04/05/19 15:53 EKG shows atrial fibrillation, nonspecific ST and T wave abnormality. Abnormal EKG. Ventricular rate is 75 beats were minute period. Vitals understands. QRS duration 80 ms. QT QTc is 400/446 ms. (Mary An) - Radiology Data Bibasilar infiltrates and atelectasis and pleural fluid is increased compared to last exam. (Mary An) Disposition Is patient prescribed a controlled substance at d/c from ED?: No Time of Disposition: 17:14 <Mary An - Last Filed: 04/05/19 17:13> <Jose E Zuñiga - Last Filed: 04/05/19 19:22> Clinical Impression: Afib, CHF (congestive heart failure) Disposition: ADMITTED IP TO THIS HOSP Condition: Stable
[2019-04-05 15:24] LABS: Anisocytosis Slight; Basophils # (A) 0.1 k/uL (0-0.2); Basophils % (A) 1 %; Eosinophils # (A) 0.2 k/uL (0-0.7); Eosinophils % (A) 3 %; HCT 38.7 % (34.0-46.0); HGB 12.4 gm/dL (11.4-16.0); Hypochromasia Slight; Lymphocytes # (A) 1.8 k/uL (1.0-4.8); Lymphocytes % (A) 24 %; MCH 26.9 pg (25.0-35.0); MCHC 31.9 g/dL (31.0-37.0); MCV 84.3 fL (80.0-100.0); Mean Platelet Volume 6.8; Monocytes # (A) 0.5 k/uL (0-1.0); Monocytes % (A) 7 %; Neutrophils # (A) 4.6 k/uL (1.3-7.7); Neutrophils % (A) 64 %; Platelet Count 238 k/uL (150-450); RBC 4.59 m/uL (3.80-5.40); RDW 16.7 % (11.5-15.5); WBC 7.3 k/uL (3.8-10.6)
--- NOTE | 2019-04-05 15:26 | XR ---
EXAMINATION TYPE: XR chest 2V DATE OF EXAM: 04/05/2019 COMPARISON: 02/11/2019 HISTORY: Dyspnea TECHNIQUE: Frontal and lateral views of the chest are obtained. FINDINGS: Heart is enlarged. There is blunting of costophrenic angles. There is some infiltrate at t he lung bases. There are chest leads. There are sternal wires. There is no heart failure. IMPRESSION: There is bilateral basilar infiltrates and atelectasis and pleural fluid increased cheli red to last exam.
[2019-04-05 15:36] LABS: Albumin 3.1 g/dL (3.5-5.0); Calcium 8.5 mg/dL (8.4-10.2); Magnesium 1.6 mg/dL (1.6-2.3); Potassium 4.6 mmol/L (3.5-5.1); Total Bilirubin 0.7 mg/dL (0.2-1.3); Total Protein 5.2 g/dL (6.3-8.2)
[2019-04-05 15:40] LABS: INR 1.7 (<1.2); Prothrombin Time 16.6 sec (9.0-12.0)
[2019-04-05 15:42] LABS: Partial Thromboplastin Time 19.9 sec (22.0-30.0)
[2019-04-05] MEDS: NITROGLYCERIN OINT 1 INCH/GM PACKET TOPICAL SCH ×2 (21:05→23:41)
[2019-04-05] MEDS ORDERED: METOPROLOL SUCCINATE (ER) 50 MG TAB.ER.24H PO STA (21:20)
[2019-04-05] MEDS ORDERED: WARFARIN 5 MG TAB PO ONE (21:30)
[2019-04-05] MEDS ORDERED: METOPROLOL SUCCINATE (ER) 25 MG TAB.ER.24H PO STA (21:33)
[2019-04-05 23:32] VITALS: BMI 25.3
[2019-04-05] MEDS: FUROSEMIDE 10 MG/ML 4 ML VIAL IV SCH (23:41)
[2019-04-06] MEDS: SODIUM CHLORIDE 0.9% 1,000 ML IV SCH ×2 (00:51→09:21)
[2019-04-06] MEDS: FUROSEMIDE 10 MG/ML 4 ML VIAL IV SCH ×3 (06:16→21:58)
[2019-04-06] MEDS ORDERED: ASPIRIN 325 MG TAB PO SCH (09:00)
[2019-04-06] MEDS: VERAPAMIL SR 120 MG TABLET.ER PO SCH (09:20)
[2019-04-06] MEDS: METOPROLOL SUCCINATE (ER) 25 MG TAB.ER.24H PO SCH ×2 (09:20→21:58)
[2019-04-06] MEDS: NITROGLYCERIN OINT 1 INCH/GM PACKET TOPICAL SCH (09:21)
--- NOTE | 2019-04-06 09:43 | P.CRDCN ---
History of Present Illness Consult date: 04/06/19 Requesting physician: Barbara Rogers Consult reason: atrial fibrillation, congestive heart failure Chief complaint: Shortness of breath and bilateral lower extremity edema History of present illness: This is an 88-year-old female with history of coronary artery disease and prior bypass surgery, history of mitral valve repair, paroxysmal atrial fibrillation, hypertension, hyperlipidemia, GERD, she follows with Dr. Leal in the office. Patient has had multiple admissions since January with congestive cardiac failure and atrial fibrillation. She presents to the hospital on this occasion with symptoms of shortness of breath with associated peripheral edema. Chest x-ray on arrival here shows bilateral basal infiltrates and atelectasis as well as pleural fluid which is increased from prior exam. EKG shows atrial fibrillation with nonspecific ST-T wave changes, controlled ventricular response. Blood pressure on arrival here 110/70 with a heart rate in the 80s, 97% on room air. This morning's blood pressure 99/60, heart rate in the 140 range, patient has not been initiated on her home medications. White blood cell count 7.3, hemoglobin 12.4, platelet count 238. INR 1.7. Sodium 138, potassium 4.6, BUN 31 and creatinine 0.8. Magnesium 1.6. Troponin 0.012, BNP 3450. At the time of my examination she is sitting up in a chair with her legs elevated, she states that she is ready diuresis significant amount through the night last night. 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 She is independent. Smoking Status: Never smoker Past Alcohol Use History: None Reported Past Drug Use History: None Reported - Past Family History Father Family Medical History: Cancer Additional Family Medical History / Comment(s): Father of pancreatic cancer w/ mets at the age of 53 yrs. Mother Family Medical History: AFIB, Diabetes Mellitus Additional Family Medical History / Comment(s): Mother lived to be 80yrs old. Medications and Allergies Home Medications Medication Instructions Recorded Confirmed Type Omeprazole 20 mg PO DAILY 01/04/18 04/05/19 History Pravastatin Sodium [Pravachol] 40 mg PO DAILY 01/04/18 04/05/19 History Warfarin [Coumadin] 2.5 mg PO MOWEFRSA 02/02/19 04/05/19 History Warfarin [Coumadin] 5 mg PO SUTUTH 02/02/19 04/05/19 History Lisinopril [Zestril] 20 mg PO DAILY 30 Days #30 tab 02/06/19 04/05/19 Rx Metoprolol Succinate (ER) [Toprol 75 mg PO BID 30 Days #60 tab.er.24h 02/06/19 04/05/19 Rx XL] Nitroglycerin Sl Tabs [Nitrostat] 0.4 mg SUBLINGUAL Q5M PRN #10 tab 02/14/19 04/05/19 Rx Verapamil Sr [Isoptin Sr] 120 mg PO DAILY 30 Days #30 02/14/19 04/05/19 Rx tablet.er Allergies Allergy/AdvReac Type Severity Reaction Status Date / Time No Known Allergies Allergy Verified 04/05/19 15:12 Physical Exam Vitals: Vital Signs Temp Pulse Pulse Resp BP BP Pulse Ox 04/06/19 08:50 98.1 F 144 H 20 99/61 95 04/06/19 08:47 126 H 20 04/06/19 03:34 97.6 F 126 H 18 127/77 92 L 04/05/19 23:44 18 04/05/19 22:53 140/93 04/05/19 22:00 114 H 20 117/100 95 04/05/19 21:00 102 H 19 122/97 93 L 04/05/19 20:00 80 122/97 100 04/05/19 19:15 102 H 20 130/81 98 04/05/19 18:43 98.0 F 126 H 18 144/95 94 L 04/05/19 16:00 115 H 20 111/85 97 04/05/19 15:30 98 23 99/73 96 04/05/19 15:00 85 32 H 113/91 96 04/05/19 14:45 16 04/05/19 14:29 97.5 F L 88 20 111/70 97 Intake and Output 04/05/19 04/06/19 04/06/19 22:59 06:59 14:59 Intake Total 240 Output Total 700 650 Balance -700 -410 Intake: Oral 240 Output: Urine 700 650 Other: Voiding Method Toilet # Voids 1 Weight 69.1 kg PHYSICAL EXAMINATION: GENERAL: 88 year old female in no acute distress at the time of my examination HEENT: Head is atraumatic, normocephalic. Pupils equal, round. Sclera anicteric. Conjunctiva are clear. Mucous membranes of the mouth are moist. Neck is supple. There is elevated jugular venous pressure. No carotid bruit is heard. HEART EXAMINATION: Heart S1-S2 irregularly irregular a systolic murmur is heard CHEST EXAMINATION: And circumflex clear with diminished air entry to bilateral bases ABDOMEN: Soft, nontender. Bowel sounds are heard. No organomegaly noted. EXTREMITIES: 2+ peripheral pulses with trace evidence of peripheral edema and no calf tenderness noted. NEUROLOGIC patient is awake, alert and oriented 3 . . Results 04/05/19 15:03 04/05/19 15:03 Cardiac Enzymes 04/05/19 04/05/19 Range/Units 15:03 15:03 AST 58 H (14-36) U/L Troponin I <0.012 (0.000-0.034) ng/mL Coagulation 04/05/19 Range/Units 15:03 PT 16.6 H (9.0-12.0) sec APTT 19.9 L (22.0-30.0) sec CBC 04/05/19 Range/Units 15:03 WBC 7.3 (3.8-10.6) k/uL RBC 4.59 (3.80-5.40) m/uL Hgb 12.4 (11.4-16.0) gm/dL Hct 38.7 (34.0-46.0) % Plt Count 238 (150-450) k/uL Comprehensive Metabolic Panel 04/05/19 Range/Units 15:03 Sodium 138 (137-145) mmol/L Potassium 4.6 (3.5-5.1) mmol/L Chloride 110 H (98-107) mmol/L Carbon Dioxide 23 (22-30) mmol/L BUN 31 H (7-17) mg/dL Creatinine 0.85 (0.52-1.04) mg/dL Glucose 127 H (74-99) mg/dL Calcium 8.5 (8.4-10.2) mg/dL AST 58 H (14-36) U/L ALT 28 (9-52) U/L Alkaline Phosphatase 61 (38-126) U/L Total Protein 5.2 L (6.3-8.2) g/dL Albumin 3.1 L (3.5-5.0) g/dL Current Medications Generic Name Dose Route Start Last Admin Trade Name Freq PRN Reason Stop Dose Admin Aspirin 325 mg 04/06/19 09:00 04/06/19 09:20 Aspirin PO 325 mg DAILY NELL Administration Furosemide 40 mg 04/05/19 23:00 04/06/19 06:16 Lasix IV 40 mg Q8H NELL Administration Sodium Chloride 1,000 mls @ 50 mls/hr 04/05/19 14:45 04/05/19 15:11 Saline 0.9% IV 04/06/19 10:44 50 mls/hr .Q20H STA Administration Sodium Chloride 1,000 mls @ 20 mls/hr 04/05/19 17:15 04/06/19 09:21 Saline 0.9% IV Not Given .Q24H NELL Lisinopril 20 mg 04/06/19 09:00 Zestril PO DAILY NELL Metoprolol Succinate 75 mg 04/06/19 09:00 04/06/19 09:20 Toprol Xl PO 75 mg BID NELL Administration Nitroglycerin 0.5 inch 04/05/19 18:15 04/06/19 09:21 Nitro-Bid Oint TOPICAL Not Given QID [facility] Verapamil HCl 120 mg 04/06/19 09:00 04/06/19 09:20 Isoptin Sr PO 120 mg DAILY NELL Administration Intake and Output 04/05/19 04/06/19 04/06/19 22:59 06:59 14:59 Intake Total 240 Output Total 700 650 Balance -700 -410 Intake: Oral 240 Output: Urine 700 650 Other: Voiding Method Toilet # Voids 1 Weight 69.1 kg 04/05/19 15:03 04/05/19 15:03 EKG Interpretations (text) EKG shows atrial fibrillation with a controlled ventricular response and nonspecific ST-T wave changes Assessment and Plan Plan: Assessment and plan #1 diastolic congestive heart failure acute on chronic, most recent echocardiogram with Doppler study was performed in January and revealed an ejection fraction of 55-60%, LA was severely dilated mitral ring annuloplasty was in place, severe tricuspid regurg, moderate pulmonary hypertension possible TV prolapse #2 paroxysmal atrial fibrillation #3 known history of coronary artery disease with prior bypass surgery and mitral valve repair #4 hypertension #5 hyperlipidemia #6 GERD Plan Patient just had an echo performed in January so we will not repeat an echo at this time. We will obtain a TSH level, continue IV Lasix. Decrease aspirin to 81 mg daily, decrease IV fluids to KVO, resume verapamil, metoprolol, lisinopril, we will give the patient 5 mg of Coumadin today then resume her regular home dose. We will also start the patient on Lovenox as her INR is subtherapeutic. Monitor daily INRs as well as daily lytes BUN and creatinine and daily weights further recommendations to follow. DNP note has been reviewed, I agree with a documented findings and plan of care. Patient was seen and examined.
[2019-04-06] MEDS: MAGNESIUM SULFATE-D5W PMX 1 GM in DEXTROSE/WATER 1 100ML.BAG IVPB SCH ×2 (11:25→12:34)
--- NOTE | 2019-04-06 12:30 | P.HPIM ---
History of Present Illness H&P Date: 04/06/19 Chief Complaint: Worsening shortness of breath over the past week This is a 88-year-old female with a known past medical history of hypertension, atrial fibrillation anticoagulated with Coumadin, mitral valve repair, CABG, hyperlipidemia and hypertension. Patient presents to the ER with worsening shortness of breath over the last week as well as bilateral lower extremity edema. She's also having difficulty with laying flat. She denies any fever, chills, sweats, nausea or vomiting, Alexa changes or urinary symptoms. She denies any cough or cold-like symptoms. She presents to the ER for further evaluation. Chest x-ray had showed bilateral infiltrates and atelectasis and pleural fluid that had increased. BNP was elevated. She started on IV Lasix for CHF exacerbation. Patient had had an echo completed in January which had shown an EF of 55-60% left Atrium severely dilated, mitral ring annuloplasty in place, severe tricuspid regurgitation, moderate pulmonary hypertension and possible TV prolapse. Patient reports improvement in her lower extremity edema and shortness of breath since the IV Lasix started. INR is 1.7 Coumadin has been restarted. Troponin was negative. Cardiology is following. 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 She is independent. Smoking Status: Never smoker Past Alcohol Use History: None Reported Past Drug Use History: None Reported - Past Family History Father Family Medical History: Cancer Additional Family Medical History / Comment(s): Father of pancreatic cancer w/ mets at the age of 53 yrs. Mother Family Medical History: AFIB, Diabetes Mellitus Additional Family Medical History / Comment(s): Mother lived to be 80yrs old. Medications and Allergies Home Medications Medication Instructions Recorded Confirmed Type Omeprazole 20 mg PO DAILY 01/04/18 04/05/19 History Pravastatin Sodium [Pravachol] 40 mg PO DAILY 01/04/18 04/05/19 History Warfarin [Coumadin] 2.5 mg PO MOWEFRSA 02/02/19 04/05/19 History Warfarin [Coumadin] 5 mg PO SUTUTH 02/02/19 04/05/19 History Lisinopril [Zestril] 20 mg PO DAILY 30 Days #30 tab 02/06/19 04/05/19 Rx Metoprolol Succinate (ER) [Toprol 75 mg PO BID 30 Days #60 tab.er.24h 02/06/19 04/05/19 Rx XL] Nitroglycerin Sl Tabs [Nitrostat] 0.4 mg SUBLINGUAL Q5M PRN #10 tab 02/14/19 04/05/19 Rx Verapamil Sr [Isoptin Sr] 120 mg PO DAILY 30 Days #30 02/14/19 04/05/19 Rx tablet.er Allergies Allergy/AdvReac Type Severity Reaction Status Date / Time No Known Allergies Allergy Verified 04/05/19 15:12 Physical Exam Vitals: Vital Signs Temp Pulse Pulse Resp BP BP Pulse Ox 04/06/19 11:41 97.9 F 130 H 20 109/85 96 04/06/19 11:37 144 H 20 04/06/19 08:50 98.1 F 144 H 20 99/61 95 04/06/19 08:47 126 H 20 04/06/19 03:34 97.6 F 126 H 18 127/77 92 L 04/05/19 23:44 18 04/05/19 22:53 140/93 04/05/19 22:00 114 H 20 117/100 95 04/05/19 21:00 102 H 19 122/97 93 L 04/05/19 20:00 80 122/97 100 04/05/19 19:15 102 H 20 130/81 98 04/05/19 18:43 98.0 F 126 H 18 144/95 94 L 04/05/19 16:00 115 H 20 111/85 97 04/05/19 15:30 98 23 99/73 96 04/05/19 15:00 85 32 H 113/91 96 04/05/19 14:45 16 04/05/19 14:29 97.5 F L 88 20 111/70 97 Intake and Output 04/05/19 04/06/19 04/06/19 22:59 06:59 14:59 Intake Total 240 Output Total 700 650 Balance -700 -410 Intake: Oral 240 Output: Urine 700 650 Other: Voiding Method Toilet # Voids 1 Weight 69.1 kg Head normocephalic Neck supple Lungs clear to auscultation bilaterally no wheezing or crackles Heart regular rate and rhythm S1-S2, no rub or gallop Abdomen is soft nontender nondistended positive bowel sounds no hepatosplenomegaly Extremities Trace edema bilateral lower extremity edema Neuro alert and orientated to 3 Results CBC & Chem 7: 04/05/19 15:03 04/05/19 15:03 Labs: Abnormal Lab Results - Last 24 Hours (Table) 04/05/19 04/05/19 04/05/19 Range/Units 15:03 15:03 15:03 RDW 16.7 H (11.5-15.5) % PT 16.6 H (9.0-12.0) sec INR 1.7 H (<1.2) APTT 19.9 L (22.0-30.0) sec Chloride 110 H (98-107) mmol/L BUN 31 H (7-17) mg/dL Glucose 127 H (74-99) mg/dL AST 58 H (14-36) U/L Total Protein 5.2 L (6.3-8.2) g/dL Albumin 3.1 L (3.5-5.0) g/dL Thrombosis Risk Factor Assmnt - Choose All That Apply Any of the Below Risk Factors Present?: Yes Each Factor Represents 1 point: Obesity (BMI >25), Swollen legs (current) Each Risk Factor Represents 3 Points: Age 75 years or older Thrombosis Risk Factor Assessment Total Risk Factor Score: 5 Thrombosis Risk Factor Assessment Level: High Risk Assessment and Plan Assessment: 1. Acute on chronic diastolic CHF exacerbation: Patient started on IV Lasix. Patient had elevated BNP on admission chest x-ray showing bilateral infiltrates and atelectasis and pleural fluid. Echo from January 2019 shows an EF of 55-60%, left atrium severely dilated, mitral ring annuloplasty in place, severe tricuspid regurgitation, moderate pulmonary hypertension, possible TV prolapse. Cardiology on consult. We'll await their further recommendations. 2. Chronic paroxysmal atrial fibrillation: Anticoagulated on Coumadin. INR subtherapeutic at 1.7. Patient receiving Coumadin 5 mg tonight per cardiology. Cardiology is also bridging with Lovenox until INR is therapeutic. Patient did have elevated heart rate of 144 likely due to her home medications not be restarted. The metoprolol and verapamil have been restarted. Continue telemetry monitoring. TSH level normal 3. History of coronary artery disease with previous coronary artery bypass graft 4. History of mitral valve repair 5. Essential hypertension 6. Hyperlipidemia 7. GERD 8. Hypomagnesemia: Patient received magnesium supplement. Recheck magnesium in a.m. GI prophylaxis omeprazole and DVT prophylaxis Coumadin Time with Patient: Greater than 30 (Greater than 50% of the total time spent in counseling and coordination of care.I performed an examination of the patient and discussed their management with the physician Plant And Instrument Engineer. I have reviewed the Physician Plant And Instrument Engineer's notes and agree with the documented findings and plan of care)
[2019-04-06] MEDS: PANTOPRAZOLE 40 MG TABLET PO SCH (12:34)
[2019-04-06] MEDS: LISINOPRIL 20 MG TAB PO SCH (15:36)
[2019-04-07] MEDS: FUROSEMIDE 10 MG/ML 4 ML VIAL IV SCH ×2 (06:09→15:09)
[2019-04-07 07:32] LABS: Anisocytosis Slight; Basophils # (A) 0.1 k/uL (0-0.2); Basophils % (A) 1 %; Eosinophils # (A) 0.3 k/uL (0-0.7); Eosinophils % (A) 4 %; HCT 45.3 % (34.0-46.0); HGB 14.3 gm/dL (11.4-16.0); Hypochromasia Slight; Lymphocytes # (A) 1.9 k/uL (1.0-4.8); Lymphocytes % (A) 22 %; MCH 26.8 pg (25.0-35.0); MCHC 31.6 g/dL (31.0-37.0); MCV 84.7 fL (80.0-100.0); Mean Platelet Volume 6.3; Monocytes # (A) 0.5 k/uL (0-1.0); Monocytes % (A) 6 %; Neutrophils # (A) 5.5 k/uL (1.3-7.7); Neutrophils % (A) 65 %; Platelet Count 272 k/uL (150-450); RBC 5.34 m/uL (3.80-5.40); RDW 16.6 % (11.5-15.5); WBC 8.5 k/uL (3.8-10.6)
[2019-04-07 07:35] LABS: INR 1.4 (<1.2); Prothrombin Time 14.6 sec (9.0-12.0)
[2019-04-07 08:15] LABS: Calcium 8.8 mg/dL (8.4-10.2); Magnesium 1.8 mg/dL (1.6-2.3)
[2019-04-07] MEDS: PANTOPRAZOLE 40 MG TABLET PO SCH (08:54)
[2019-04-07] MEDS: ASPIRIN 81 MG PO SCH (08:55)
[2019-04-07] MEDS: VERAPAMIL SR 120 MG TABLET.ER PO SCH (08:55)
[2019-04-07] MEDS: PRAVASTATIN SODIUM 40 MG TAB PO SCH (08:55)
[2019-04-07] MEDS: METOPROLOL SUCCINATE (ER) 25 MG TAB.ER.24H PO SCH ×2 (08:55→20:56)
[2019-04-07] MEDS ORDERED: DILTIAZEM DRIP BOLUS FROM BAG 1 MG SOLN IV ONE (11:52)
[2019-04-07 12:11] LABS: Albumin 3.5 g/dL (3.5-5.0); Total Bilirubin 0.7 mg/dL (0.2-1.3); Total Protein 5.8 g/dL (6.3-8.2)
[2019-04-07] MEDS: DILTIAZEM 125 MG in SODIUM CHLORIDE 0.9% 100 ML IV SCH (13:19)
[2019-04-07] MEDS: ENOXAPARIN 60 MG/0.6 ML SYRINGE SQ SCH ×2 (13:20→20:56)
--- NOTE | 2019-04-07 13:38 | P.PN ---
Subjective Progress Note Date: 04/07/19 This is a 88-year-old female with a known past medical history of hypertension, atrial fibrillation anticoagulated with Coumadin, mitral valve repair, CABG, hyperlipidemia and hypertension. Patient presents to the ER with worsening shortness of breath over the last week as well as bilateral lower extremity edema. She's also having difficulty with laying flat. She denies any fever, chills, sweats, nausea or vomiting, Alexa changes or urinary symptoms. She denies any cough or cold-like symptoms. She presents to the ER for further evaluation. Chest x-ray had showed bilateral infiltrates and atelectasis and pleural fluid that had increased. BNP was elevated. She started on IV Lasix for CHF exacerbation. Patient had had an echo completed in January which had shown an EF of 55-60% left Atrium severely dilated, mitral ring annuloplasty in place, severe tricuspid regurgitation, moderate pulmonary hypertension and possible TV prolapse. Patient reports improvement in her lower extremity edema and shortness of breath since the IV Lasix started. INR is 1.7 Coumadin has been restarted. Troponin was negative. Cardiology is following. 04/07/2019 patient is sitting at bedside chair comfortably. She reports improvement in her shortness of breath and lower extremity edema. She was found to be in atrial fibrillation with rapid ventricular response her heart rate has been fluctuating between the 120s up into the 140s. Her morning vitals had shown a heart rate of 135 blood pressure 91/50 and satting at room air and 88%. INR is 1.4. She remains on IV Lasix for her CHF exacerbation. Case discussed with cardiology they have recommended placing her on a Cardizem drip. In discontinuing the verapamil. They have also place patient on Lovenox bridging until INR is therapeutic. Coumadin 7.5 mg was ordered for tonight. Patient denies any chest pain, nausea or vomiting, urinary symptoms. She is complaining of some mild constipation she did have a small bowel movement this morning Colace his added. Objective - Vital Signs Vital signs: Vital Signs Temp 98.0 F 04/07/19 12:00 Pulse 84 04/07/19 13:16 Resp 16 04/07/19 12:00 BP 91/68 04/07/19 13:16 Pulse Ox 100 04/07/19 12:00 Intake & Output 04/06/19 04/07/19 04/07/19 18:59 06:59 18:59 Intake Total 480 200 180 Output Total 1050 1850 Balance -570 -1650 180 Weight 69.1 kg 66.3 kg Intake: Oral 480 200 180 Output: Urine 1050 1850 Other: Voiding Method Toilet Toilet Toilet # Voids 1 - Exam Head normocephalic Neck supple Lungs clear to auscultation bilaterally no wheezing or crackles Heart irregular rhythm. A. fib on monitor Abdomen is soft nontender nondistended positive bowel sounds no hepatosplenomegaly Extremities no edema Neuro alert and orientated to 3 - Labs CBC & Chem 7: 04/07/19 06:36 04/07/19 06:36 Labs: Abnormal Lab Results - Last 24 Hours (Table) 04/07/19 04/07/19 04/07/19 Range/Units 06:36 06:36 06:36 RDW 16.6 H (11.5-15.5) % PT 14.6 H (9.0-12.0) sec INR 1.4 H (<1.2) Carbon Dioxide 33 H (22-30) mmol/L BUN 34 H (7-17) mg/dL Creatinine 1.06 H (0.52-1.04) mg/dL Glucose 107 H (74-99) mg/dL AST 53 H (14-36) U/L Total Protein 5.8 L (6.3-8.2) g/dL Assessment and Plan Assessment: 1. Acute on chronic diastolic CHF exacerbation: Patient started on IV Lasix. Patient had elevated BNP on admission chest x-ray showing bilateral infiltrates and atelectasis and pleural fluid. Echo from January 2019 shows an EF of 55-60%, left atrium severely dilated, mitral ring annuloplasty in place, severe tricuspid regurgitation, moderate pulmonary hypertension, possible TV prolapse. Cardiology is following. Patient remains on IV Lasix. Cardiology will be adjusting Lasix today patient has had increase in creatinine up to 1.06 2. Chronic paroxysmal atrial fibrillation: Patient now having H of fibrillation with rapid ventricular response: Discussed with cardiology and will start her on a Cardizem drip. For the has now been placed on hold while on Cardizem drip. Patient on Lovenox for bridging until INR is therapeutic. She is scheduled for Coumadin 7.5 mg tonight. Check daily PT/INRs. TSH level normal 3. History of coronary artery disease with previous coronary artery bypass graft 4. History of mitral valve repair 5. Essential hypertension 6. Hyperlipidemia 7. GERD 8. Hypomagnesemia: Magnesium 1.8. We'll give another gram of magnesium sulfate repeat magnesium level in a.m. 9. Acute kidney injury: Creatinine is up to 1.06. Cardiology will be adjusting Lasix dosage. GI prophylaxis omeprazole and DVT prophylaxis Lovenox until INR is therapeutic I performed an examination of the patient and discussed their management with the physician Cartography Supervisor. I have reviewed the Physician Cartography Supervisor's notes and agree with the documented findings and plan of care
[2019-04-07] MEDS ORDERED: MAGNESIUM SULFATE-D5W PMX 1 GM in DEXTROSE/WATER 1 100ML.BAG IVPB ONE (14:00)
[2019-04-07] MEDS: LISINOPRIL 20 MG TAB PO SCH (14:34)
[2019-04-07] MEDS ORDERED: WARFARIN 7.5 MG TAB PO ONE (18:00)
[2019-04-07] MEDS: DOCUSATE 100 MG CAP PO SCH (20:54)
[2019-04-08 07:06] LABS: Anisocytosis Slight; Basophils # (A) 0.1 k/uL (0-0.2); Basophils % (A) 1 %; Eosinophils # (A) 0.3 k/uL (0-0.7); Eosinophils % (A) 4 %; HGB 13.6 gm/dL (11.4-16.0); Hypochromasia Slight; Lymphocytes # (A) 2.1 k/uL (1.0-4.8); Lymphocytes % (A) 27 %; MCH 26.7 pg (25.0-35.0); MCHC 31.5 g/dL (31.0-37.0); MCV 84.5 fL (80.0-100.0); Mean Platelet Volume 6.1; Monocytes # (A) 0.5 k/uL (0-1.0); Monocytes % (A) 6 %; Neutrophils # (A) 4.5 k/uL (1.3-7.7); Neutrophils % (A) 59 %; Platelet Count 271 k/uL (150-450); RBC 5.09 m/uL (3.80-5.40); RDW 16.6 % (11.5-15.5); WBC 7.6 k/uL (3.8-10.6)
[2019-04-08 07:09] LABS: INR 1.5 (<1.2); Prothrombin Time 15.5 sec (9.0-12.0)
[2019-04-08 07:20] LABS: Albumin 3.3 g/dL (3.5-5.0); Calcium 8.7 mg/dL (8.4-10.2); Magnesium 2.1 mg/dL (1.6-2.3); Potassium 4.1 mmol/L (3.5-5.1); Total Protein 5.6 g/dL (6.3-8.2)
[2019-04-08] MEDS: ENOXAPARIN 60 MG/0.6 ML SYRINGE SQ SCH ×2 (08:27→20:17)
[2019-04-08] MEDS: FUROSEMIDE 20 MG TAB PO SCH ×2 (08:27→15:53)
[2019-04-08] MEDS: ASPIRIN 81 MG PO SCH (08:28)
[2019-04-08] MEDS: DOCUSATE 100 MG CAP PO SCH ×2 (08:28→20:17)
[2019-04-08] MEDS: PANTOPRAZOLE 40 MG TABLET PO SCH (08:28)
[2019-04-08] MEDS: PRAVASTATIN SODIUM 40 MG TAB PO SCH (08:28)
[2019-04-08] MEDS: METOPROLOL SUCCINATE (ER) 25 MG TAB.ER.24H PO SCH ×2 (08:28→20:17)
[2019-04-08] MEDS: DILTIAZEM 125 MG in SODIUM CHLORIDE 0.9% 100 ML IV SCH (08:29)
--- NOTE | 2019-04-08 14:19 | P.PN ---
Subjective Progress Note Date: 04/08/19 This is a 88-year-old female with a known past medical history of hypertension, atrial fibrillation anticoagulated with Coumadin, mitral valve repair, CABG, hyperlipidemia and hypertension. Patient presents to the ER with worsening shortness of breath over the last week as well as bilateral lower extremity edema. She's also having difficulty with laying flat. She denies any fever, chills, sweats, nausea or vomiting, Alexa changes or urinary symptoms. She denies any cough or cold-like symptoms. She presents to the ER for further evaluation. Chest x-ray had showed bilateral infiltrates and atelectasis and pleural fluid that had increased. BNP was elevated. She started on IV Lasix for CHF exacerbation. Patient had had an echo completed in January which had shown an EF of 55-60% left Atrium severely dilated, mitral ring annuloplasty in place, severe tricuspid regurgitation, moderate pulmonary hypertension and possible TV prolapse. Patient reports improvement in her lower extremity edema and shortness of breath since the IV Lasix started. INR is 1.7 Coumadin has been restarted. Troponin was negative. Cardiology is following. 04/07/2019 patient is sitting at bedside chair comfortably. She reports improvement in her shortness of breath and lower extremity edema. She was found to be in atrial fibrillation with rapid ventricular response her heart rate has been fluctuating between the 120s up into the 140s. Her morning vitals had shown a heart rate of 135 blood pressure 91/50 and satting at room air and 88%. INR is 1.4. She remains on IV Lasix for her CHF exacerbation. Case discussed with cardiology they have recommended placing her on a Cardizem drip. In discontinuing the verapamil. They have also place patient on Lovenox bridging until INR is therapeutic. Coumadin 7.5 mg was ordered for tonight. Patient denies any chest pain, nausea or vomiting, urinary symptoms. She is complaining of some mild constipation she did have a small bowel movement this morning Colace his added. On 04/08/2018 patient is alert and oriented 3. Patient denies chest pain or shortness breath. Patient denies nausea vomiting or diarrhea. Patient denies any urinary burning or frequency. Patient remains on IV Cardizem for heart rate control. Objective - Vital Signs Vital signs: Vital Signs Temp 98.0 F 04/08/19 12:00 Pulse 102 H 04/08/19 12:00 Resp 16 04/08/19 12:00 BP 91/57 04/08/19 12:00 Pulse Ox 94 L 04/08/19 12:00 Intake & Output 04/07/19 04/08/19 04/08/19 18:59 06:59 18:59 Intake Total 580 275.833 Output Total 900 500 300 Balance -320 -500 -24.167 Weight 66.3 kg Intake: Intake, IV Titration 95.833 Amount Diltiazem 125 mg In 95.833 Sodium Chloride 0.9% 100 ml @ 5 MG/HR 5 mls/hr IV .Q24H [facility] Rx#:[id number] Oral 580 180 Output: Urine 900 500 300 Other: Voiding Method Toilet # Voids 2 0 - Exam Head normocephalic Neck supple Lungs clear to auscultation bilaterally no wheezing or crackles Heart irregular rhythm. A. fib on monitor Abdomen is soft nontender nondistended positive bowel sounds no hepatosplenomegaly Extremities no edema Neuro alert and orientated to 3 - Labs CBC & Chem 7: 04/08/19 06:23 04/08/19 06:23 Labs: Abnormal Lab Results - Last 24 Hours (Table) 04/08/19 04/08/19 04/08/19 Range/Units 06:23 06:23 06:23 RDW 16.6 H (11.5-15.5) % PT 15.5 H (9.0-12.0) sec INR 1.5 H (<1.2) Carbon Dioxide 34 H (22-30) mmol/L BUN 37 H (7-17) mg/dL Creatinine 1.14 H (0.52-1.04) mg/dL Glucose 107 H (74-99) mg/dL AST 46 H (14-36) U/L Total Protein 5.6 L (6.3-8.2) g/dL Albumin 3.3 L (3.5-5.0) g/dL Assessment and Plan Assessment: 1. Acute on chronic diastolic CHF exacerbation: Patient started on IV Lasix. Patient had elevated BNP on admission chest x-ray showing bilateral infiltrates and atelectasis and pleural fluid. Echo from January 2019 shows an EF of 55-60%, left atrium severely dilated, mitral ring annuloplasty in place, severe tricuspid regurgitation, moderate pulmonary hypertension, possible TV prolapse. Cardiology is following. Patient remains on IV Lasix. Cardiology will be adjusting Lasix today patient has had increase in creatinine up to 1.14 2. Chronic paroxysmal atrial fibrillation: Patient now having H of fibrillation with rapid ventricular response: Discussed with cardiology and will start her on a Cardizem drip. For the has now been placed on hold while on Cardizem drip. Patient on Lovenox for bridging until INR is therapeutic. She is scheduled for Coumadin 7.5 mg tonight. Check daily PT/INRs. TSH level normal 3. History of coronary artery disease with previous coronary artery bypass graft 4. History of mitral valve repair 5. Essential hypertension 6. Hyperlipidemia 7. GERD 8. Hypomagnesemia: Magnesium 1.8. We'll give another gram of magnesium sulfate repeat magnesium level in a.m. 9. Acute kidney injury: Creatinine is up to 1.14. Cardiology will be adjusting Lasix dosage. GI prophylaxis omeprazole and DVT prophylaxis Lovenox until INR is therapeutic I performed an examination of the patient and discussed their management with the Nurse Practitioner. I have reviewed the Nurse Practitioner's notes and agree with the documented findings and plan of care
[2019-04-08] MEDS: LISINOPRIL 20 MG TAB PO SCH (14:32)
--- NOTE | 2019-04-08 15:10 | P.PN ---
Subjective Progress Note Date: 04/07/19 This is an 88-year-old female with history of coronary artery disease and prior bypass surgery, history of mitral valve repair, paroxysmal atrial fibrillation, hypertension, hyperlipidemia, GERD, she follows with Dr. Leal in the office. Patient has had multiple admissions since January with congestive cardiac failure and atrial fibrillation. She presents to the hospital on this occasion with symptoms of shortness of breath with associated peripheral edema. Chest x-ray on arrival here shows bilateral basal infiltrates and atelectasis as well as pleural fluid which is increased from prior exam. EKG shows atrial fibrillation with nonspecific ST-T wave changes, controlled ventricular res ponse. Blood pressure on arrival here 110/70 with a heart rate in the 80s, 97% on room air. This morning's blood pressure 99/60, heart rate in the 140 range, patient has not been initiated on her home medications. White blood cell count 7.3, hemoglobin 12.4, platelet count 238. INR 1.7. Sodium 138, potassium 4.6, BUN 31 and creatinine 0.8. Magnesium 1.6. Troponin 0.012, BNP 3450. At the ti me of my examination she is sitting up in a chair with her legs elevated, she states that she is ready diuresis significant amount through the night last night. 04/07/2019 She was seen and examined today, went back into atrial fibrillation with a rapid ventricular response, IV Cardizem was initiated. Blood pressure 90/60 with a heart rate of 120, under percent on room air. Continues to be on IV Lasix. Objective - Vital Signs Vital signs: Vital Signs Temp 98.0 F 04/08/19 12:00 Pulse 102 H 04/08/19 12:00 Resp 16 04/08/19 12:00 BP 91/57 04/08/19 12:00 Pulse Ox 94 L 04/08/19 12:00 Intake & Output 04/07/19 04/08/19 04/08/19 18:59 06:59 18:59 Intake Total 580 275.833 Output Total 900 500 300 Balance -320 -500 -24.167 Weight 66.3 kg Intake: Intake, IV Titration 95.833 Amount Diltiazem 125 mg In 95.833 Sodium Chloride 0.9% 100 ml @ 5 MG/HR 5 mls/hr IV .Q24H [facility] Rx#:[id number] Oral 580 180 Output: Urine 900 500 300 Other: Voiding Method Toilet # Voids 2 0 - Exam PHYSICAL EXAMINATION: GENERAL: 88 year old female in no acute distress at the time of my examination HEENT: Head is atraumatic, normocephalic. Pupils equal, round. Sclera anicteric. Conjunctiva are clear. Mucous membranes of the mouth are moist. Neck is supple. There is elevated jugular venous pressure. No carotid bruit is heard. HEART EXAMINATION: Heart S1-S2 irregularly irregular a systolic murmur is heard CHEST EXAMINATION: And circumflex clear with diminished air entry to bilateral bases ABDOMEN: Soft, nontender. Bowel sounds are heard. No organomegaly noted. EXTREMITIES: 2+ peripheral pulses with trace evidence of peripheral edema and no calf tenderness noted. NEUROLOGIC patient is awake, alert and oriented 3 . - Labs CBC & Chem 7: 04/08/19 06:23 04/08/19 06:23 Labs: Abnormal Lab Results - Last 24 Hours (Table) 04/08/19 04/08/19 04/08/19 Range/Units 06:23 06:23 06:23 RDW 16.6 H (11.5-15.5) % PT 15.5 H (9.0-12.0) sec INR 1.5 H (<1.2) Carbon Dioxide 34 H (22-30) mmol/L BUN 37 H (7-17) mg/dL Creatinine 1.14 H (0.52-1.04) mg/dL Glucose 107 H (74-99) mg/dL AST 46 H (14-36) U/L Total Protein 5.6 L (6.3-8.2) g/dL Albumin 3.3 L (3.5-5.0) g/dL Assessment and Plan Plan: Assessment and plan #1 diastolic congestive heart failure acute on chronic, most recent echocar diogram with Doppler study was performed in January and revealed an ejection fraction of 55-60%, LA was severely dilated mitral ring annuloplasty was in place, severe tricuspid regurg, moderate pulmonary hypertension possible TV prolapse #2 paroxysmal atrial fibrillation #3 known history of coronary artery disease with prior bypass surgery and mitral valve repair #4 hypertension #5 hyperlipidemia #6 GERD Plan We will start the patient on IV Cardizem, more optimal heart rate control, continue anticoagulation in the form of Lovenox and Coumadin until the INR is in the range of 2-2.5. DNP note has been reviewed, I agree with a documented findings and plan of care. Patient was seen and examined.
[2019-04-08] MEDS: VERAPAMIL SR 180 MG TABLET.ER PO SCH (15:53)
[2019-04-08] MEDS ORDERED: WARFARIN 2.5 MG TAB PO SCH (18:00)
[2019-04-08] MEDS ORDERED: WARFARIN 5 MG TAB PO ONE (18:00)
[2019-04-09 06:12] LABS: Anisocytosis Slight; Basophils % (A) 1 %; Eosinophils # (A) 0.3 k/uL (0-0.7); Eosinophils % (A) 4 %; HCT 43.7 % (34.0-46.0); HGB 13.6 gm/dL (11.4-16.0); Hypochromasia Slight; Lymphocytes # (A) 2.4 k/uL (1.0-4.8); Lymphocytes % (A) 29 %; MCH 26.6 pg (25.0-35.0); MCHC 31.1 g/dL (31.0-37.0); MCV 85.4 fL (80.0-100.0); Mean Platelet Volume 6.2; Monocytes # (A) 0.5 k/uL (0-1.0); Monocytes % (A) 6 %; Neutrophils # (A) 4.8 k/uL (1.3-7.7); Neutrophils % (A) 58 %; Platelet Count 281 k/uL (150-450); RBC 5.12 m/uL (3.80-5.40); RDW 16.7 % (11.5-15.5); WBC 8.2 k/uL (3.8-10.6)
[2019-04-09 06:21] LABS: Albumin 3.7 g/dL (3.5-5.0); Calcium 8.7 mg/dL (8.4-10.2); Potassium 4.2 mmol/L (3.5-5.1); Prothrombin Time 19.7 sec (9.0-12.0); Total Bilirubin 0.7 mg/dL (0.2-1.3); Total Protein 6.1 g/dL (6.3-8.2)
[2019-04-09] MEDS ORDERED: LISINOPRIL 5 MG TAB PO SCH (09:00)
[2019-04-09] MEDS: FUROSEMIDE 20 MG TAB PO SCH ×2 (09:37→16:30)
[2019-04-09] MEDS: VERAPAMIL SR 180 MG TABLET.ER PO SCH (09:37)
[2019-04-09] MEDS: ENOXAPARIN 60 MG/0.6 ML SYRINGE SQ SCH (09:38)
[2019-04-09] MEDS: PANTOPRAZOLE 40 MG TABLET PO SCH (09:38)
[2019-04-09] MEDS: ASPIRIN 81 MG PO SCH (09:38)
[2019-04-09] MEDS: PRAVASTATIN SODIUM 40 MG TAB PO SCH (09:38)
[2019-04-09] MEDS: METOPROLOL SUCCINATE (ER) 25 MG TAB.ER.24H PO SCH (09:38)
[2019-04-09] MEDS: DOCUSATE 100 MG CAP PO SCH (09:38)
[2019-04-09 09:56] VITALS: TEMP 98
[2019-04-09] MEDS ORDERED: METOPROLOL SUCCINATE (ER) 25 MG TAB.ER.24H PO STA (11:43)
[2019-04-09 13:11] VITALS: BP 119/87; PULSE 127; RESP 16
--- NOTE | 2019-04-09 15:02 | P.PN ---
Subjective Progress Note Date: 04/09/19 This is an 88-year-old female with history of coronary artery disease and prior bypass surgery, history of mitral valve repair, paroxysmal atrial fibrillation, hypertension, hyperlipidemia, GERD, she follows with Dr. Leal in the office. Patient has had multiple admissions since January with congestive cardiac failure and atrial fibrillation. She presents to the hospital on this occasion with symptoms of shortness of breath with associated peripheral edema. Chest x-ray on arrival here shows bilateral basal infiltrates and atelectasis as well as pleural fluid which is increased from prior exam. EKG shows atrial fibrillation with nonspecific ST-T wave changes, controlled ventricular res ponse. Blood pressure on arrival here 110/70 with a heart rate in the 80s, 97% on room air. This morning's blood pressure 99/60, heart rate in the 140 range, patient has not been initiated on her home medications. White blood cell count 7.3, hemoglobin 12.4, platelet count 238. INR 1.7. Sodium 138, potassium 4.6, BUN 31 and creatinine 0.8. Magnesium 1.6. Troponin 0.012, BNP 3450. At the ti me of my examination she is sitting up in a chair with her legs elevated, she states that she is ready diuresis significant amount through the night last night. 04/07/2019 She was seen and examined today, went back into atrial fibrillation with a rapid ventricular response, IV Cardizem was initiated. Blood pressure 90/60 with a heart rate of 120, under percent on room air. Continues to be on IV Lasix. 04/09/2019 Patient seen and examined this morning, continues to be in atrial fibrillation, her rate is under adequate control.anticipating discharge home today. This morning her rate went up into the 11[birth year]17/1929 range, we increased her dose of beta rick and gave her an additional 25 mg. This afternoon at the time of her discharge, patient's heart rate is in the 90s, hemodynamically stable. She will be discharged home today. We will discontinue the Lovenox. Continue 5 mg of Coumadin daily and check a PT/INR on Saturday. Follow-up appointment with Dr. Leal in the office post Objective - Vital Signs Vital signs: Vital Signs Temp 98.0 F 04/09/19 08:00 Pulse 127 H 04/09/19 12:00 Resp 16 04/09/19 12:00 BP 119/87 04/09/19 12:00 Pulse Ox 93 L 04/09/19 12:00 Intake & Output 04/08/19 04/09/19 04/09/19 18:59 06:59 18:59 Intake Total 393.833 200 480 Output Total 300 Balance 93.833 200 480 Weight 66.5 kg Intake: Intake, IV Titration 95.833 Amount Diltiazem 125 mg In 95.833 Sodium Chloride 0.9% 100 ml @ 5 MG/HR 5 mls/hr IV .Q24H [facility] Rx#:[id number] Oral 298 200 480 Output: Urine 300 Other: # Voids 1 2 - Exam PHYSICAL EXAMINATION: GENERAL: 88 year old female in no acute distress at the time of my examination HEENT: Head is atraumatic, normocephalic. Pupils equal, round. Sclera anicteric. Conjunctiva are clear. Mucous membranes of the mouth are moist. Neck is supple. There is elevated jugular venous pressure. No carotid bruit is heard. HEART EXAMINATION: Heart S1-S2 irregularly irregular a systolic murmur is heard CHEST EXAMINATION: And circumflex clear with diminished air entry to bilateral bases ABDOMEN: Soft, nontender. Bowel sounds are heard. No organomegaly noted. EXTREMITIES: 2+ peripheral pulses with trace evidence of peripheral edema and no calf tenderness noted. NEUROLOGIC patient is awake, alert and oriented 3 . - Labs CBC & Chem 7: 04/09/19 05:37 04/09/19 05:37 Labs: Abnormal Lab Results - Last 24 Hours (Table) 04/09/19 04/09/19 04/09/19 Range/Units 05:37 05:37 05:37 RDW 16.7 H (11.5-15.5) % PT 19.7 H (9.0-12.0) sec INR 2.0 H (<1.2) BUN 35 H (7-17) mg/dL Glucose 100 H (74-99) mg/dL AST 54 H (14-36) U/L Total Protein 6.1 L (6.3-8.2) g/dL Assessment and Plan Plan: Assessment and plan #1 diastolic congestive heart failure acute on chronic, most recent echocardiogram with Doppler study was performed in January and revealed an ejection fraction of 55-60%, LA was severely dilated mitral ring annuloplasty was in place, severe tricuspid regurg, moderate pulmonary hypertension possible TV prolapse #2 paroxysmal atrial fibrillation #3 known history of coronary artery disease with prior bypass surgery and mitral valve repair #4 hypertension #5 hyperlipidemia #6 GERD Plan Patient may be discharged home today on metoprolol 100 mg by mouth twice a day, verapamil 180 mg daily and Coumadin 5 mg daily, PT/INR on Saturday, follow-up appointment with Dr. Leal. DNP note has been reviewed, I agree with a documented findings and plan of care. Patient was seen and examined.
--- NOTE | 2019-04-09 15:13 | P.DS ---
Providers Date of admission: 04/05/19 16:49 Expected date of discharge: 04/09/19 Attending physician: Barbara Rogers Consults: 04/05/19 17:10 Consult Physician Stat Consulting Provider: Justen Leal Consult Reason/Comments: CHF Do you want consulting provider notified?: Yes Primary care physician: Barbara Ken [facility] Course: Discharge diagnosis 1. Acute on chronic diastolic CHF exacerbation: Patient treated with IV Lasix. Patient had elevated BNP on admission chest x-ray showing bilateral infiltrates and atelectasis and pleural fluid. Echo from January 2019 shows an EF of 55-60%, left atrium severely dilated, mitral ring annuloplasty in place, severe tricuspid regurgitation, moderate pulmonary hypertension, possible TV prolapse. Cardiology switch patient over to oral Lasix 60 mg twice a day 2. Chronic paroxysmal atrial fibrillation: Patient did go into atrial fibrillation with rapid ventricular response: Patient initially placed on a Cardizem drip. Now off of the Cardizem drip. Cardiology has increased her verapamil 180 mg daily and then increase edema metoprolol 100 mg twice a day. Heart rate is now controlled. TSH level normal 3. History of coronary artery disease with previous coronary artery bypass graft 4. History of mitral valve repair 5. Essential hypertension 6. Hyperlipidemia 7. GERD 8. Hypomagnesemia: Resolved with supplement. Potassium at discharge 2.0 9. Acute kidney injury: Secondary to diuretics. Now improved. Creatinine at discharge 1.00 10. Mildly elevated AST recommend checking LFTs in 3 days Hospital course This is a 88-year-old female with a known past medical history of hypertension, atrial fibrillation anticoagulated with Coumadin, mitral valve repair, CABG, hyperlipidemia and hypertension. Patient presents to the ER with worsening shortness of breath over the last week as well as bilateral lower extremity edema. She's also having difficulty with laying flat. She denies any fever, chills, sweats, nausea or vomiting, Alexa changes or urinary symptoms. She denies any cough or cold-like symptoms. She presents to the ER for further evaluation. Chest x-ray had showed bilateral infiltrates and atelectasis and pleural fluid that had increased. BNP was elevated. She started on IV Lasix for CHF exacerbation. Patient had had an echo completed in January which had shown an EF of 55-60% left Atrium severely dilated, mitral ring annuloplasty in place, severe tricuspid regurgitation, moderate pulmonary hypertension and possible TV prolapse. Patient reports improvement in her lower extremity edema and shortness of breath since the IV Lasix started. INR is 1.7 Coumadin has been restarted. Troponin was negative. Cardiology is following. 04/07/2019 patient is sitting at bedside chair comfortably. She reports improvement in her shortness of breath and lower extremity edema. She was found to be in atrial fibrillation with rapid ventricular response her heart rate has been fluctuating between the 120s up into the 140s. Her morning vitals had shown a heart rate of 135 blood pressure 91/50 and satting at room air and 88%. INR is 1.4. She remains on IV Lasix for her CHF exacerbation. Case discussed with cardiology they have recommended placing her on a Cardizem drip. In discontinuing the verapamil. They have also place patient on Lovenox bridging until INR is therapeutic. Coumadin 7.5 mg was ordered for tonight. Patient denies any chest pain, nausea or vomiting, urinary symptoms. She is complaining of some mild constipation she did have a small bowel movement this morning Colace his added. On 04/08/2018 patient is alert and oriented 3. Patient denies chest pain or shortness breath. Patient denies nausea vomiting or diarrhea. Patient denies any urinary burning or frequency. Patient remains on IV Cardizem for heart rate control. 04/09/2019 patient is lying in bed comfortably. No evidence of any distress. She did have a heart rate in the 120s to 130s. Discussed case with cardiology they adjusted her metoprolol 100 mg twice a day instead of 75 mg twice a day. Patient's heart rate is now controlled. Cardiology has cleared her for discharge. Also during this admission they decreased her lisinopril to 5 mg daily. Blood pressures are stable. Also note that INR is therapeutic at 2.0 at discharge. Cardiology is recommending Coumadin 5 mg daily and to check a PT/INR level on Saturday for further dosing of the Coumadin. Also will have patient check a CMP level to follow kidney functions and LFTs. Patient is medical stable for discharge. Please refer to chart for any further details. I performed an examination of the patient and discussed their management with the physician Crepe Machine Operator. I have reviewed the Physician Crepe Machine Operator's notes and agree with the documented findings and plan of care Patient Condition at Discharge: Stable Plan - Discharge Summary Discharge Rx Participant: Yes New Discharge Prescriptions: New Aspirin 81 mg PO DAILY #30 chew Verapamil Sr [Isoptin Sr] 180 mg PO DAILY #30 tablet.er Potassium Chloride ER [K-Dur 20] 20 meq PO DAILY #30 tab Furosemide [Lasix] 60 mg PO BID@0900,1600 #60 tab Metoprolol Succinate (ER) [Toprol XL] 100 mg PO BID #60 tab.er.24h Lisinopril [Zestril] 5 mg PO DAILY #30 tab Warfarin Sodium [Coumadin] 5 mg PO DAILY #30 tablet Continue Pravastatin Sodium [Pravachol] 40 mg PO DAILY Omeprazole 20 mg PO DAILY Nitroglycerin Sl Tabs [Nitrostat] 0.4 mg SUBLINGUAL Q5M PRN #10 tab PRN Reason: Chest Pain Discontinued Warfarin [Coumadin] 5 mg PO SUTUTH Warfarin [Coumadin] 2.5 mg PO MOWEFRSA Metoprolol Succinate (ER) [Toprol XL] 75 mg PO BID 30 Days #60 tab.er.24h Lisinopril [Zestril] 20 mg PO DAILY 30 Days #30 tab Verapamil Sr [Isoptin Sr] 120 mg PO DAILY 30 Days #30 tablet.er Discharge Medication List Omeprazole 20 mg PO DAILY 01/04/18 [History] Pravastatin Sodium [Pravachol] 40 mg PO DAILY 01/04/18 [History] Nitroglycerin Sl Tabs [Nitrostat] 0.4 mg SUBLINGUAL Q5M PRN #10 tab 02/14/19 [Rx] Aspirin 81 mg PO DAILY #30 chew 04/09/19 [Rx] Furosemide [Lasix] 60 mg PO BID@0900,1600 #60 tab 04/09/19 [Rx] Lisinopril [Zestril] 5 mg PO DAILY #30 tab 04/09/19 [Rx] Metoprolol Succinate (ER) [Toprol XL] 100 mg PO BID #60 tab.er.24h 04/09/19 [Rx] Potassium Chloride ER [K-Dur 20] 20 meq PO DAILY #30 tab 04/09/19 [Rx] Verapamil Sr [Isoptin Sr] 180 mg PO DAILY #30 tablet.er 04/09/19 [Rx] Warfarin Sodium [Coumadin] 5 mg PO DAILY #30 tablet 04/09/19 [Rx] Follow up Appointment(s)/Referral(s): Justen Leal MD [STAFF PHYSICIAN] - 1 Week [facility], [NON-STAFF] - Barbara Rogers MD [Primary Care Provider] - 1 Week Ambulatory/Diagnostic Orders: Prothrombin Time INR [LAB.AMB] Time Frame: 3 Days, Location: None Selected Patient Instructions/Handouts: Heart Failure (DC), A-fib (Atrial Fibrillation) (DC), Low-Sodium Diet (DC) Discharge Disposition: HOME WITH HOME HEALTH SERVICES
[2019-04-09] MEDS ORDERED: WARFARIN 5 MG TAB PO SCH (18:00)
[2019-04-09] MEDS ORDERED: METOPROLOL SUCCINATE (ER) 100 MG TAB.ER.24H PO SCH (21:00)
== END 2019-04-09 17:34 | disposition home health service (06) | DRG 292 ==
LOC: EC 14:19 → 3SCARD 16:49
PROVIDERS: ADMIT Internal Medicine; ATTEND Internal Medicine
DX: I11.0 Hypertensive heart disease with heart failure (principal); J98.11 Atelectasis; N17.9 Acute kidney failure, unspecified; I50.33 Acute on chronic diastolic (congestive) heart failure; E78.5 Hyperlipidemia, unspecified; E83.42 Hypomagnesemia; I07.1 Rheumatic tricuspid insufficiency; I25.10 Atherosclerotic heart disease of native coronary artery without angina pectoris; I27.20 Pulmonary hypertension, unspecified; I48.2 Chronic atrial fibrillation; Z79.01 Long term (current) use of anticoagulants; K21.9 Gastro-esophageal reflux disease without esophagitis; K59.00 Constipation, unspecified; T50.2X5A Adverse effect of carbonic-anhydrase inhibitors, benzothiadiazides and other diuretics, initial encounter; Z79.899 Other long term (current) drug therapy; Z80.0 Family history of malignant neoplasm of digestive organs; Z83.3 Family history of diabetes mellitus; Z85.828 Personal history of other malignant neoplasm of skin; Z90.710 Acquired absence of both cervix and uterus; Z95.1 Presence of aortocoronary bypass graft; Z95.2 Presence of prosthetic heart valve; Z79.82 Long term (current) use of aspirin
CPT/HCPCS: 36415; 71046; 80053; 83735; 83880; 84443; 84484; 85025; 85610; 85730; 93005; 96374; 99285

== ENCOUNTER 2019-04-14 14:07 | Inpatient (IN) | payer MEDICARE, BC ==
[2019-04-14] MEDS ORDERED: SODIUM CHLORIDE 0.9% 500 ML 500 ML IV STA (14:40)
[2019-04-14 15:07] LABS: Anisocytosis Slight; Basophils # (A) 0.1 k/uL (0-0.2); Basophils % (A) 1 %; Eosinophils # (A) 0.2 k/uL (0-0.7); Eosinophils % (A) 3 %; HCT 47.8 % (34.0-46.0); HGB 14.9 gm/dL (11.4-16.0); Lymphocytes # (A) 2.4 k/uL (1.0-4.8); Lymphocytes % (A) 27 %; MCH 26.5 pg (25.0-35.0); MCHC 31.1 g/dL (31.0-37.0); MCV 85.1 fL (80.0-100.0); Mean Platelet Volume 6.7; Monocytes # (A) 0.4 k/uL (0-1.0); Monocytes % (A) 5 %; Neutrophils # (A) 5.4 k/uL (1.3-7.7); Neutrophils % (A) 62 %; Platelet Count 348 k/uL (150-450); RBC 5.61 m/uL (3.80-5.40); WBC 8.6 k/uL (3.8-10.6)
[2019-04-14 15:16] LABS: Partial Thromboplastin Time 27.9 sec (22.0-30.0); Prothrombin Time 29.3 sec (9.0-12.0)
[2019-04-14 15:18] LABS: Calcium 9.5 mg/dL (8.4-10.2); Magnesium 2.1 mg/dL (1.6-2.3); Potassium 5.8 mmol/L (3.5-5.1); Total Bilirubin 0.7 mg/dL (0.2-1.3); Total Protein 6.5 g/dL (6.3-8.2)
--- NOTE | 2019-04-14 15:20 | ED ---
General Adult HPI - General Chief complaint: Dizziness Stated complaint: Dizziness, headache, nausea Time Seen by Provider: 04/14/19 14:37 Source: patient, family, RN notes reviewed, old records reviewed Mode of arrival: wheelchair Limitations: physical limitation - History of Present Illness Initial comments: 88-year-old female presents for evaluation of weakness and fatigue, and low blood pressure. Patient had blood pressure at home which is 70 systolic. She had recent admission for congestive heart failure. She is currently on metoprolol, Cardizem, and Lasix. She was initiated on Lasix 60 mg twice daily. She states she has lost 20 pounds in the last one week. She has been urinating quite frequently. She denies chest pain or dyspnea. Denies headache. She reports some lightheadedness as well as some nausea and vomiting associated with her symptoms this morning. Denies abdominal pain or diarrhea. - Related Data Home Medications Medication Instructions Recorded Confirmed Omeprazole 20 mg PO DAILY 01/04/18 04/14/19 Pravastatin Sodium [Pravachol] 40 mg PO DAILY 01/04/18 04/14/19 Previous Rx's Medication Instructions Recorded Nitroglycerin Sl Tabs [Nitrostat] 0.4 mg SUBLINGUAL Q5M PRN #10 tab 02/14/19 Aspirin 81 mg PO DAILY #30 chew 04/09/19 Furosemide [Lasix] 60 mg PO BID@0900,1600 #60 tab 04/09/19 Lisinopril [Zestril] 5 mg PO DAILY #30 tab 04/09/19 Metoprolol Succinate (ER) [Toprol 100 mg PO BID #60 tab.er.24h 04/09/19 XL] Potassium Chloride ER [K-Dur 20] 20 meq PO DAILY #30 tab 04/09/19 Verapamil Sr [Isoptin Sr] 180 mg PO DAILY #30 tablet.er 04/09/19 Warfarin Sodium [Coumadin] 5 mg PO DAILY #30 tablet 04/09/19 Allergies Allergy/AdvReac Type Severity Reaction Status Date / Time No Known Allergies Allergy Verified 04/14/19 14:51 Review of Systems ROS Statement: Those systems with pertinent positive or pertinent negative responses have been documented in the HPI. ROS Other: All systems not noted in ROS Statement are negative. 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, skin cancer with removals History of Any Multi-Drug Resistant Organisms: None Reported Past Surgical History: Appendectomy, Cardiac Valve Replacement, Coronary Bypass/CABG, Hysterectomy, Joint Replacement Additional Past Surgical History / Comment(s): Valve repair Dec 13, 2015 Past Anesthesia/Blood Transfusion Reactions: No Reported Reaction Past Psychological History: No Psychological Hx Reported Smoking Status: Never smoker Past Alcohol Use History: None Reported Past Drug Use History: None Reported - Past Family History Father Family Medical History: Cancer Additional Family Medical History / Comment(s): Father of pancreatic cancer w/ mets at the age of 53 yrs. Mother Family Medical History: AFIB, Diabetes Mellitus Additional Family Medical History / Comment(s): Mother lived to be 80yrs old. General Exam Limitations: physical limitation General appearance: alert, in no apparent distress Head exam: Present: atraumatic, normocephalic Eye exam: Present: normal appearance, PERRL ENT exam: Present: mucous membranes dry Neck exam: Present: normal inspection. Absent: tenderness, meningismus Respiratory exam: Present: normal lung sounds bilaterally. Absent: respiratory distress, wheezes, rales Cardiovascular Exam: Present: tachycardia, irregular rhythm GI/Abdominal exam: Present: soft, distended. Absent: tenderness, guarding, rebound Extremities exam: Present: normal inspection, normal capillary refill. Absent: pedal edema Neurological exam: Present: alert, oriented X3, CN II-XII intact. Absent: motor sensory deficit Psychiatric exam: Present: normal affect, normal mood Skin exam: Present: warm, dry, intact. Absent: cyanosis, diaphoretic Course Vital Signs 04/14/19 14:31 Temperature 97.4 F L Pulse Rate 52 L Respiratory 18 Rate Blood Pressure 64/50 O2 Sat by Pulse 97 Oximetry EKG Findings - EKG Comments: EKG Findings:: EKG: Atrial flutter with variable AV block rate of 103, QRS duration 94, QTC [address] segment elevation Medical Decision Making - Medical Decision Making 88-year-old female with dizziness lightheadedness and nausea. Patient found to be hypotensive. She had recent admission to hospital for congestive heart failure, was started on Lasix. Currently on Lasix twice daily, metoprolol diltiazem and lisinopril. She states she has lost approximately 20 pounds since her hospital admission. EKG is atrial flutter, no ischemic changes. She has chest x-ray with small bilateral effusions, otherwise there is good aeration on chest x-ray. She has normal white blood cell count, stable hemoglobin, INR therapeutic 3.0. She has a potassium of 5.8 and a creatinine 1.7 which is e levated from previous. She receives initial fluid at 500 mL bolus. Urinalysis pending. Lasix will be held as well as her lisinopril. She does respond well to 500 mL normal saline bolus. She will be For hemodynamic monitoring. Cardiology placed on consult. Case is discussed with the admitting physician Dr. Rogers - Lab Data Result diagrams: 04/14/19 14:55 04/14/19 14:55 Lab Results 04/14/19 04/14/19 04/14/19 Range/Units 14:55 14:55 14:55 WBC 8.6 (3.8-10.6) k/uL RBC 5.61 H (3.80-5.40) m/uL Hgb 14.9 (11.4-16.0) gm/dL Hct 47.8 H (34.0-46.0) % MCV 85.1 (80.0-100.0) fL MCH 26.5 (25.0-35.0) pg MCHC 31.1 (31.0-37.0) g/dL RDW 17.0 H (11.5-15.5) % Plt Count 348 (150-450) k/uL Neutrophils % 62 % Lymphocytes % 27 % Monocytes % 5 % Eosinophils % 3 % Basophils % 1 % Neutrophils # 5.4 (1.3-7.7) k/uL Lymphocytes # 2.4 (1.0-4.8) k/uL Monocytes # 0.4 (0-1.0) k/uL Eosinophils # 0.2 (0-0.7) k/uL Basophils # 0.1 (0-0.2) k/uL Anisocytosis Slight PT (9.0-12.0) sec INR (<1.2) APTT (22.0-30.0) sec Sodium 135 L (137-145) mmol/L Potassium 5.8 H (3.5-5.1) mmol/L Chloride 97 L (98-107) mmol/L Carbon Dioxide 30 (22-30) mmol/L Anion Gap 8 mmol/L BUN 45 H (7-17) mg/dL Creatinine 1.70 H (0.52-1.04) mg/dL Est GFR (CKD-EPI)AfAm 31 (>60 ml/min/1.73 sqM) Est GFR (CKD-EPI)NonAf 27 (>60 ml/min/1.73 sqM) Glucose 150 H (74-99) mg/dL Plasma Lactic Acid Cristofer 1.4 (0.7-2.0) mmol/L Calcium 9.5 (8.4-10.2) mg/dL Magnesium 2.1 (1.6-2.3) mg/dL Total Bilirubin 0.7 (0.2-1.3) mg/dL AST 52 H (14-36) U/L ALT 33 (9-52) U/L Alkaline Phosphatase 80 (38-126) U/L Total Protein 6.5 (6.3-8.2) g/dL Albumin 4.0 (3.5-5.0) g/dL 04/14/19 Range/Units 14:55 WBC (3.8-10.6) k/uL RBC (3.80-5.40) m/uL Hgb (11.4-16.0) gm/dL Hct (34.0-46.0) % MCV (80.0-100.0) fL MCH (25.0-35.0) pg MCHC (31.0-37.0) g/dL RDW (11.5-15.5) % Plt Count (150-450) k/uL Neutrophils % % Lymphocytes % % Monocytes % % Eosinophils % % Basophils % % Neutrophils # (1.3-7.7) k/uL Lymphocytes # (1.0-4.8) k/uL Monocytes # (0-1.0) k/uL Eosinophils # (0-0.7) k/uL Basophils # (0-0.2) k/uL Anisocytosis PT 29.3 H (9.0-12.0) sec INR 3.0 H (<1.2) APTT 27.9 (22.0-30.0) sec Sodium (137-145) mmol/L Potassium (3.5-5.1) mmol/L Chloride (98-107) mmol/L Carbon Dioxide (22-30) mmol/L Anion Gap mmol/L BUN (7-17) mg/dL Creatinine (0.52-1.04) mg/dL Est GFR (CKD-EPI)AfAm (>60 ml/min/1.73 sqM) Est GFR (CKD-EPI)NonAf (>60 ml/min/1.73 sqM) Glucose (74-99) mg/dL Plasma Lactic Acid Cristofer (0.7-2.0) mmol/L Calcium (8.4-10.2) mg/dL Magnesium (1.6-2.3) mg/dL Total Bilirubin (0.2-1.3) mg/dL AST (14-36) U/L ALT (9-52) U/L Alkaline Phosphatase (38-126) U/L Total Protein (6.3-8.2) g/dL Albumin (3.5-5.0) g/dL Disposition Clinical Impression: Afib, CHF (congestive heart failure), TYLER (acute kidney injury) Disposition: ADMITTED IP TO THIS [facility] Condition: Stable Is patient prescribed a controlled substance at d/c from ED?: No Referrals: Barbara Rogers MD [Primary Care Provider] - 1-2 days Decision to Admit Reason: Admit from EC Decision Date: 04/14/19 Decision Time: 16:29
--- NOTE | 2019-04-14 15:23 | XR ---
EXAMINATION TYPE: XR chest 1V portable DATE OF EXAM: 04/14/2019 COMPARISON: 04/05/2019 HISTORY: Shortness of breath TECHNIQUE: Single frontal view of the chest is obtained. FINDINGS: The heart is enlarged there is bilateral infiltrate and small effusion. Diffuse interstiti al pattern. Postsurgical changes. Prosthetic heart valve. Arthropathy of the shoulders with diffuse o steopenia. No pneumothorax. Hyperinflation suggests COPD. IMPRESSION: 1. Findings suggestive of COPD with bilateral lower lobe infiltrate and small effusion correlate for CHF. Otherwise consider pneumonia.
[2019-04-14] MEDS ORDERED: NALOXONE 0.4 MG/ML 1 ML VIAL IV PRN (16:24)
[2019-04-14] MEDS: SODIUM CHLORIDE 0.9% 1,000 ML IV SCH (18:07)
[2019-04-14 20:07] VITALS: BMI 22.7
[2019-04-14] MEDS: METOPROLOL SUCCINATE (ER) 100 MG TAB.ER.24H PO SCH (21:39)
[2019-04-15 01:58] LABS: Appearance,Urine Clear (Clear); Bilirubin,Urine Negative (Negative); Blood,Urine Negative (Negative); Color,Urine Yellow; Glucose,Urine (UA) Negative (Negative); Hyaline Casts,Urine 88 /lpf (0-2); Ketones,Urine Negative (Negative); Leukocyte Esterase,Urine Trace (Negative); Mucus,Urine Rare /hpf; Nitrite,Urine Negative (Negative); PH, Urine 5.5 (5.0-8.0); Protein,Urine Negative (Negative); Specific Gravity,Urine 1.015 (1.001-1.035); Squamous Epithelial Cell,Urine <1 /hpf (0-4); Urobilinogen,Urine <2.0 mg/dL (<2.0); WBC,Urine 4 /hpf (0-5)
[2019-04-15 07:37] LABS: INR 2.6 (<1.2); Prothrombin Time 25.6 sec (9.0-12.0)
[2019-04-15 08:42] LABS: Albumin 3.4 g/dL (3.5-5.0); Calcium 9.1 mg/dL (8.4-10.2); Total Bilirubin 0.7 mg/dL (0.2-1.3); Total Protein 5.9 g/dL (6.3-8.2)
[2019-04-15 09:11] LABS: Anisocytosis Slight; Basophils # (A) 0.1 k/uL (0-0.2); Basophils % (A) 1 %; Eosinophils # (A) 0.2 k/uL (0-0.7); Eosinophils % (A) 2 %; HCT 44.8 % (34.0-46.0); HGB 13.9 gm/dL (11.4-16.0); Hypochromasia Moderate; Lymphocytes # (A) 1.5 k/uL (1.0-4.8); Lymphocytes % (A) 21 %; MCH 26.3 pg (25.0-35.0); Mean Platelet Volume 6.9; Monocytes # (A) 0.5 k/uL (0-1.0); Monocytes % (A) 6 %; Neutrophils # (A) 4.9 k/uL (1.3-7.7); Neutrophils % (A) 68 %; Platelet Count 262 k/uL (150-450); RBC 5.27 m/uL (3.80-5.40); RDW 16.6 % (11.5-15.5); WBC 7.1 k/uL (3.8-10.6)
[2019-04-15] MEDS: PRAVASTATIN SODIUM 40 MG TAB PO SCH (09:45)
[2019-04-15] MEDS: METOPROLOL SUCCINATE (ER) 100 MG TAB.ER.24H PO SCH ×2 (09:45→21:13)
[2019-04-15] MEDS: ASPIRIN 81 MG PO SCH (09:45)
--- NOTE | 2019-04-15 10:26 | P.CRDCN ---
History of Present Illness Consult date: 04/15/19 Requesting physician: Barbara Rogers Consult reason: hypotension Chief complaint: Dizziness and lightheadedness History of present illness: This is an 88-year-old female with history of coronary artery disease and prior bypass surgery, history of mitral valve repair, paroxysmal atrial fib rillation, hypertension, hyperlipidemia, GERD, follows with Dr. Leal in the office. She was recently in the hospital earlier this month with congestive heart failure. Patient was diuresed while she was here, overall felt well on discharge. For the first couple of days after discharge she states she was doing well, when she started noticing herself to be quite dizzy and lightheaded with some visual disturbance. She does check her blood pressure regularly at home and noted that she had a very low blood pressure. Chest x-ray showed findings suggestive of COPD with bilateral lobe infiltrate. EKG on presentation here showed an atrial flutter with a variable rate. Blood pressure on arrival here 64/50 with a heart rate of 52, 97% on room air. Blood pressure this morning left arm 116/68, right arm 136/74. Heart rate in the 90s to 100s, 92% on room air. Laboratory data was reviewed, white blood cell count 7.1, hemoglobin 13.9, platelet count 262. INR is 2.6. Sodium 136, potassium 5.0, BUN 44 and creatinine 1.3. The patient was given IV fluids on arrival here, her Lasix had been placed on hold, she was resumed on her metoprolol pravastatin and Coumadin. At the time of my examination this morning the patient is feeling back to her normal self. 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 Mother Family Medical History: AFIB, Diabetes Mellitus Additional Family Medical History / Comment(s): Mother lived to be 80yrs old. Medications and Allergies Home Medications Medication Instructions Recorded Confirmed Type Omeprazole 20 mg PO DAILY 01/04/18 04/14/19 History Pravastatin Sodium [Pravachol] 40 mg PO DAILY 01/04/18 04/14/19 History Nitroglycerin Sl Tabs [Nitrostat] 0.4 mg SUBLINGUAL Q5M PRN #10 tab 02/14/19 04/14/19 Rx Aspirin 81 mg PO DAILY #30 chew 04/09/19 04/14/19 Rx Furosemide [Lasix] 60 mg PO BID@0900,1600 #60 tab 04/09/19 04/14/19 Rx Lisinopril [Zestril] 5 mg PO DAILY #30 tab 04/09/19 04/14/19 Rx Metoprolol Succinate (ER) [Toprol 100 mg PO BID #60 tab.er.24h 04/09/19 04/14/19 Rx XL] Potassium Chloride ER [K-Dur 20] 20 meq PO DAILY #30 tab 04/09/19 04/14/19 Rx Verapamil Sr [Isoptin Sr] 180 mg PO DAILY #30 tablet.er 04/09/19 04/14/19 Rx Warfarin Sodium [Coumadin] 5 mg PO DAILY #30 tablet 04/09/19 04/14/19 Rx Allergies Allergy/AdvReac Type Severity Reaction Status Date / Time No Known Allergies Allergy Verified 04/14/19 14:51 Physical Exam Vitals: Vital Signs Temp Pulse Pulse Resp BP BP BP 04/15/19 08:00 97.5 F L 100 18 136/75 117/69 04/15/19 04:00 98 F 95 18 112/62 04/14/19 23:12 100 18 115/68 04/14/19 19:59 97.6 F 109 H 18 105/69 04/14/19 18:43 97.6 F 97 16 115/90 04/14/19 18:00 98 14 102/80 04/14/19 17:30 105 H 20 116/92 04/14/19 17:00 85 19 92/67 04/14/19 16:30 87 19 92/67 04/14/19 16:20 85 22 72/56 04/14/19 16:10 54 L 25 H 72/56 04/14/19 16:00 103 H 21 04/14/19 15:50 107 H 21 90/62 04/14/19 15:40 102 H 16 90/62 04/14/19 15:30 101 H 18 89/67 04/14/19 15:20 98 25 H 89/67 04/14/19 15:10 109 H 18 89/67 04/14/19 15:00 105 H 15 87/54 04/14/19 14:50 106 H 15 87/54 04/14/19 14:41 105 H 17 86/71 04/14/19 14:31 97.4 F L 52 L 18 64/50 Pulse Ox 04/15/19 08:00 92 L 04/15/19 04:00 98 04/14/19 23:12 97 04/14/19 19:59 95 04/14/19 18:43 99 04/14/19 18:00 04/14/19 17:30 04/14/19 17:00 96 04/14/19 16:30 94 L 04/14/19 16:20 04/14/19 16:10 04/14/19 16:00 04/14/19 15:50 04/14/19 15:40 100 04/14/19 15:30 97 04/14/19 15:20 04/14/19 15:10 04/14/19 15:00 04/14/19 14:50 04/14/19 14:41 04/14/19 14:31 97 Intake and Output 04/14/19 04/15/19 04/15/19 22:59 06:59 14:59 Intake Total 360 Balance 360 Intake: Oral 360 Other: # Voids 1 1 Weight 64.2 kg PHYSICAL EXAMINATION: GENERAL: 88-year-old female in no acute distress at the examination HEENT: Head is atraumatic, normocephalic. Pupils equal, round. Sclera anicteric. Conjunctiva are clear. Mucous membranes of the mouth are moist. Neck is supple. There is no elevated jugular venous pressure. No carotid bruit is heard. HEART EXAMINATION: Heart S1 and S2 irregularly irregular a systolic murmur is heard CHEST EXAMINATION: Lungs are clear to auscultation and precussion. No chest wall tenderness is noted on palpation or with deep breathing. ABDOMEN: Soft, nontender. Bowel sounds are heard. No organomegaly noted. EXTREMITIES: 2+ peripheral pulses with no evidence of peripheral edema and no calf tenderness noted. NEUROLOGIC patient is awake, alert and oriented 3 . . Results 04/15/19 06:52 04/15/19 06:52 Cardiac Enzymes 04/14/19 04/15/19 Range/Units 14:55 06:52 AST 52 H 58 H (14-36) U/L Coagulation 04/14/19 04/15/19 Range/Units 14:55 06:52 PT 29.3 H 25.6 H (9.0-12.0) sec APTT 27.9 (22.0-30.0) sec CBC 04/14/19 04/15/19 Range/Units 14:55 06:52 WBC 8.6 7.1 (3.8-10.6) k/uL RBC 5.61 H 5.27 (3.80-5.40) m/uL Hgb 14.9 13.9 (11.4-16.0) gm/dL Hct 47.8 H 44.8 (34.0-46.0) % Plt Count 348 262 (150-450) k/uL Comprehensive Metabolic Panel 04/14/19 04/15/19 Range/Units 14:55 06:52 Sodium 135 L 136 L (137-145) mmol/L Potassium 5.8 H 5.0 (3.5-5.1) mmol/L Chloride 97 L 102 (98-107) mmol/L Carbon Dioxide 30 28 (22-30) mmol/L BUN 45 H 44 H (7-17) mg/dL Creatinine 1.70 H 1.36 H (0.52-1.04) mg/dL Glucose 150 H 126 H (74-99) mg/dL Calcium 9.5 9.1 (8.4-10.2) mg/dL AST 52 H 58 H (14-36) U/L ALT 33 25 (9-52) U/L Alkaline Phosphatase 80 61 (38-126) U/L Total Protein 6.5 5.9 L (6.3-8.2) g/dL Albumin 4.0 3.4 L (3.5-5.0) g/dL Current Medications Generic Name Dose Route Start Last Admin Trade Name Freq PRN Reason Stop Dose Admin Aspirin 81 mg 04/15/19 09:00 04/15/19 09:45 Aspirin PO 81 mg DAILY NELL Administration Sodium Chloride 1,000 mls @ 20 mls/hr 04/14/19 16:30 04/14/19 18:07 Saline 0.9% IV 20 mls/hr .Q24H NELL Administration Metoprolol Succinate 100 mg 04/14/19 21:00 04/15/19 09:45 Toprol Xl PO 100 mg BID NELL Administration Naloxone HCl 0.2 mg 04/14/19 16:24 Narcan IV Q2M PRN Opioid Reversal Pravastatin Sodium 40 mg 04/15/19 09:00 04/15/19 09:45 Pravachol PO 40 mg DAILY NELL Administration Warfarin Sodium 5 mg 04/15/19 18:00 Coumadin PO DAILY@1800 NELL Intake and Output 04/14/19 04/15/19 04/15/19 22:59 06:59 14:59 Intake Total 360 Balance 360 Intake: Oral 360 Other: # Voids 1 1 Weight 64.2 kg 04/15/19 06:52 04/15/19 06:52 EKG Interpretations (text) EKG shows atrial flutter with a variable rate. Assessment and Plan Plan: Assessment and plan #1 symptoms of weakness with associated dizziness and lightheadedness likely secondary to hypotension, blood pressure on arrival here 68/40. #2 recent admission to the hospital with congestive cardiac failure which time patient was diuresed and sent home on increased dose of Lasix. Most recent echo showed an ejection fraction of 55-60%, LA was severely dilated, mitral ring annuloplasty was in place, severe tricuspid regurg was noted as well as pulmonary hypertension of a moderate degree. #3 known history of coronary artery disease with prior bypass surgery and mitral valve repair #4 paroxysmal atrial fibrillation/flutter, atypical #5 history of hypertension #6 hyperlipidemia #7 GERD Plan Patient's blood pressure has returned back to normal, we would recommend continuing her current medications that she is on at this time and adding a small dose of Lasix on discharge. She's also been instructed on discharge to monitor her blood pressure closely at home. Follow-up appointment will be made with Dr. Leal in the office post discharge. DNP note has been reviewed, I agree with a documented findings and plan of care. Patient was seen and examined.
--- NOTE | 2019-04-15 11:04 | P.HPIM ---
History of Present Illness H&P Date: 04/15/19 This is a 88-year-old female patient who presented with complaints of low blood pressure. Patient was recently admitted and discharged on new cardiac meds including Lasix 60 mg twice a day lisinopril 5 mg verapamil and Lopressor. Patient reports that after her morning meds she would become very dizzy and lightheaded. Patient's granddaughter took blood pressure and was found to have systolic blood pressure in the 70s. Patient denies any recent illness at home. Patient denies nausea vomiting or diarrhea. Patient has past medical history of atrial fibrillation in which she's on Coumadin, heart failure, GERD, hyperlipidemia and hypertension. Upon arrival patient was also found to have acute kidney injury. Creatinine elevated at 1.7 0.45 and potassium 5.8. Cardiology services have been consulted. Metroprolol has been resumed all other meds on hold. Patient received 500cc of normal saline. At this time patient is resting comfortably in chair. Patient denies any chest pain or shortness of breath. Patient denies any urinary burning or frequency. 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 Mother Family Medical History: AFIB, Diabetes Mellitus Additional Family Medical History / Comment(s): Mother lived to be 80yrs old. Medications and Allergies Home Medications Medication Instructions Recorded Confirmed Type Omeprazole 20 mg PO DAILY 01/04/18 04/14/19 History Pravastatin Sodium [Pravachol] 40 mg PO DAILY 01/04/18 04/14/19 History Nitroglycerin Sl Tabs [Nitrostat] 0.4 mg SUBLINGUAL Q5M PRN #10 tab 02/14/19 04/14/19 Rx Aspirin 81 mg PO DAILY #30 chew 04/09/19 04/14/19 Rx Furosemide [Lasix] 60 mg PO BID@0900,1600 #60 tab 04/09/19 04/14/19 Rx Lisinopril [Zestril] 5 mg PO DAILY #30 tab 04/09/19 04/14/19 Rx Metoprolol Succinate (ER) [Toprol 100 mg PO BID #60 tab.er.24h 04/09/19 04/14/19 Rx XL] Potassium Chloride ER [K-Dur 20] 20 meq PO DAILY #30 tab 04/09/19 04/14/19 Rx Verapamil Sr [Isoptin Sr] 180 mg PO DAILY #30 tablet.er 04/09/19 04/14/19 Rx Warfarin Sodium [Coumadin] 5 mg PO DAILY #30 tablet 04/09/19 04/14/19 Rx Allergies Allergy/AdvReac Type Severity Reaction Status Date / Time No Known Allergies Allergy Verified 04/14/19 14:51 Physical Exam Vitals: Vital Signs Temp Pulse Pulse Resp BP BP BP 04/15/19 08:00 97.5 F L 100 18 136/75 117/69 04/15/19 04:00 98 F 95 18 112/62 04/14/19 23:12 100 18 115/68 04/14/19 19:59 97.6 F 109 H 18 105/69 04/14/19 18:43 97.6 F 97 16 115/90 04/14/19 18:00 98 14 102/80 04/14/19 17:30 105 H 20 116/92 04/14/19 17:00 85 19 92/67 04/14/19 16:30 87 19 92/67 04/14/19 16:20 85 22 72/56 04/14/19 16:10 54 L 25 H 72/56 04/14/19 16:00 103 H 21 04/14/19 15:50 107 H 21 90/62 04/14/19 15:40 102 H 16 90/62 04/14/19 15:30 101 H 18 89/67 04/14/19 15:20 98 25 H 89/67 04/14/19 15:10 109 H 18 89/67 04/14/19 15:00 105 H 15 87/54 06/18/19 14:50 106 H 15 87/54 04/14/19 14:41 105 H 17 86/71 04/14/19 14:31 97.4 F L 52 L 18 64/50 Pulse Ox 04/15/19 08:00 92 L 04/15/19 04:00 98 04/14/19 23:12 97 04/14/19 19:59 95 04/14/19 18:43 99 04/14/19 18:00 04/14/19 17:30 04/14/19 17:00 96 04/14/19 16:30 94 L 04/14/19 16:20 04/14/19 16:10 04/14/19 16:00 04/14/19 15:50 04/14/19 15:40 100 04/14/19 15:30 97 04/14/19 15:20 04/14/19 15:10 04/14/19 15:00 04/14/19 14:50 04/14/19 14:41 04/14/19 14:31 97 Intake and Output 04/14/19 04/15/19 04/15/19 22:59 06:59 14:59 Intake Total 360 Balance 360 Intake: Oral 360 Other: # Voids 1 1 Weight 64.2 kg Head normocephalic Neck supple Lungs clear to auscultation bilaterally no wheezing or crackles Heart regular rate and rhythm S1-S2, no rub or gallop Abdomen is soft nontender nondistended positive bowel sounds no hepatosplenomegaly Extremities no edema Neuro alert and orientated to 3 Results CBC & Chem 7: 04/15/19 06:52 04/15/19 06:52 Labs: Abnormal Lab Results - Last 24 Hours (Table) 04/14/19 04/14/19 04/14/19 Range/Units 14:55 14:55 14:55 RBC 5.61 H (3.80-5.40) m/uL Hct 47.8 H (34.0-46.0) % RDW 17.0 H (11.5-15.5) % PT 29.3 H (9.0-12.0) sec INR 3.0 H (<1.2) Sodium 135 L (137-145) mmol/L Potassium 5.8 H (3.5-5.1) mmol/L Chloride 97 L (98-107) mmol/L BUN 45 H (7-17) mg/dL Creatinine 1.70 H (0.52-1.04) mg/dL Glucose 150 H (74-99) mg/dL AST 52 H (14-36) U/L Total Protein (6.3-8.2) g/dL Albumin (3.5-5.0) g/dL Ur Leukocyte Esterase (Negative) Hyaline Casts (0-2) /lpf Urine Mucus (None) /hpf 04/15/19 04/15/19 04/15/19 Range/Units 01:30 06:52 06:52 RBC (3.80-5.40) m/uL Hct (34.0-46.0) % RDW 16.6 H (11.5-15.5) % PT 25.6 H (9.0-12.0) sec INR 2.6 H (<1.2) Sodium (137-145) mmol/L Potassium (3.5-5.1) mmol/L Chloride (98-107) mmol/L BUN (7-17) mg/dL Creatinine (0.52-1.04) mg/dL Glucose (74-99) mg/dL AST (14-36) U/L Total Protein (6.3-8.2) g/dL Albumin (3.5-5.0) g/dL Ur Leukocyte Esterase Trace H (Negative) Hyaline Casts 88 H (0-2) /lpf Urine Mucus Rare H (None) /hpf 04/15/19 Range/Units 06:52 RBC (3.80-5.40) m/uL Hct (34.0-46.0) % RDW (11.5-15.5) % PT (9.0-12.0) sec INR (<1.2) Sodium 136 L (137-145) mmol/L Potassium (3.5-5.1) mmol/L Chloride (98-107) mmol/L BUN 44 H (7-17) mg/dL Creatinine 1.36 H (0.52-1.04) mg/dL Glucose 126 H (74-99) mg/dL AST 58 H (14-36) U/L Total Protein 5.9 L (6.3-8.2) g/dL Albumin 3.4 L (3.5-5.0) g/dL Ur Leukocyte Esterase (Negative) Hyaline Casts (0-2) /lpf Urine Mucus (None) /hpf Thrombosis Risk Factor Assmnt - Choose All That Apply Any of the Below Risk Factors Present?: Yes Each Factor Represents 1 point: Heart failure (<1month), Swollen legs (current) Other Risk Factors: Yes Each Risk Factor Represents 3 Points: Age 75 years or older Thrombosis Risk Factor Assessment Total Risk Factor Score: 5 Thrombosis Risk Factor Assessment Level: High Risk Assessment and Plan Assessment: 1. weakness and dizziness likely secondary to hypotension. Cardiology services have been consulted. Blood pressure has improved. 2. Chronic diastolic congestive heart failure. Patient was recently hospitalized and sent home on increased dose of Lasix 60 mg twice a day. 2-D echo completed showing an EF of 55-60%. Cardiology services have been consulted. No signs of exacerbation at this time 3. Acute kidney injury with hyperkalemia. Creatinine elevated at 1.70, bun 44 and potassium 5.8. Improving. We'll continue to monitor 4. Paroxysmal atrial fibrillation/flutter atypical. Patient is maintained on Coumadin. Home Coumadin dose reordered. Current INR 2.6 5. History of essential hypertension. Patient having episodes of hypotension. Home is currently on hold metoprolol has been resumed 6. History of coronary artery disease with previous coronary artery bypass graft surgery 7. History of mitral valve repair 8. History of hyperlipidemia DVT prophylaxis Coumadin. GI prophylaxis Protonix Cardiology consult placed Repeat a.m. labs ordered Urine culture ordered Time with Patient: Greater than 30 (Greater than 60% of the total time spent in counseling and coordination of care. I performed an examination of the patient and discussed their management with the Nurse Practitioner. I have reviewed the Nurse Practitioner's notes and agree with the documented findings and plan of care)
--- NOTE | 2019-04-15 15:59 | P.CONS ---
History of Present Illness - Chief Complaint Medical debility - History of Present Illness I had the opportunity to see patient for inpatient rehab consultation with regard to medical debility. She was admitted to [facility] April 14 of hypotension and paroxysmal atrial fibrillation. Seen by cardiology. Chest x-ray demonstrated COPD and lower lobe infiltrates consistent with CHF. PT and OT prescribed. Patient and [id number] feel that this is most likely a medication reaction. Previous functional history as elicited from patient: 88-year-old right-handed white female who is lives in one floor home alone. Retired. Describes independent with own cooking, laundry, driving, standing shower and gait without device. Denies tobacco or alcohol. Dr. ulrich jar his regular doctor. Family history father with cancer and mother with diabetes and heart disease. Review of Systems Review of systems: ENT: Denies sneezes or discharge. Eyes: Denies discharge or photophobia. Cardiac: Denies chest pain or palpitation. Pulmonary: Denies cough or shortness of breath. Breast: Denies discharge or lumps. Gastrointestinal: Denies nausea, emesis, constipation, diarrhea. Genitourinary: Denies discharge or frequency. Musculoskeletal: Denies muscle or bone aches. Neurologic: Denies motor or sensory change. Endocrine: Denies shakes or sweats. Oncology: Denies cancers. Dermatologic: Denies rash, itching, pruritus. ALLERGY/immunology: Denies sneezes, rashes. 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 Mother Family Medical History: AFIB, Diabetes Mellitus Additional Family Medical History / Comment(s): Mother lived to be 80yrs old. Medications and Allergies Home Medications Medication Instructions Recorded Confirmed Type Omeprazole 20 mg PO DAILY 01/04/18 04/14/19 History Pravastatin Sodium [Pravachol] 40 mg PO DAILY 01/04/18 04/14/19 History Nitroglycerin Sl Tabs [Nitrostat] 0.4 mg SUBLINGUAL Q5M PRN #10 tab 02/14/19 04/14/19 Rx Aspirin 81 mg PO DAILY #30 chew 04/09/19 04/14/19 Rx Furosemide [Lasix] 60 mg PO BID@0900,1600 #60 tab 04/09/19 04/14/19 Rx Lisinopril [Zestril] 5 mg PO DAILY #30 tab 04/09/19 04/14/19 Rx Metoprolol Succinate (ER) [Toprol 100 mg PO BID #60 tab.er.24h 04/09/19 04/14/19 Rx XL] Potassium Chloride ER [K-Dur 20] 20 meq PO DAILY #30 tab 04/09/19 04/14/19 Rx Verapamil Sr [Isoptin Sr] 180 mg PO DAILY #30 tablet.er 04/09/19 04/14/19 Rx Warfarin Sodium [Coumadin] 5 mg PO DAILY #30 tablet 04/09/19 04/14/19 Rx Allergies Allergy/AdvReac Type Severity Reaction Status Date / Time No Known Allergies Allergy Verified 04/14/19 14:51 Physical Exam Vitals: Vital Signs Temp Pulse Pulse Resp BP BP BP 04/15/19 12:00 97.6 F 120 H 18 102/69 04/15/19 08:00 97.5 F L 100 18 136/75 117/69 04/15/19 04:00 98 F 95 18 112/62 04/14/19 23:12 100 18 115/68 04/14/19 19:59 97.6 F 109 H 18 105/69 04/14/19 18:43 97.6 F 97 16 115/90 04/14/19 18:00 98 14 102/80 04/14/19 17:30 105 H 20 116/92 04/14/19 17:00 85 19 92/67 04/14/19 16:30 87 19 92/67 04/14/19 16:20 85 22 72/56 04/14/19 16:10 54 L 25 H 72/56 04/14/19 16:00 103 H 21 Pulse Ox 04/15/19 12:00 94 L 04/15/19 08:00 92 L 04/15/19 04:00 98 04/14/19 23:12 97 04/14/19 19:59 95 04/14/19 18:43 99 04/14/19 18:00 04/14/19 17:30 04/14/19 17:00 96 04/14/19 16:30 94 L 04/14/19 16:20 04/14/19 16:10 04/14/19 16:00 Intake and Output 04/15/19 04/15/19 04/15/19 06:59 14:59 22:59 Intake Total 560 Balance 560 Intake: Oral 560 Other: Voiding Method Toilet # Voids 1 1 Weight 64.2 kg Skin: Atrophic, intact. General: Medium build and comfortable appearance. Head: Normocephalic, atraumatic. Eyes: Symmetric. Pupils equal round. Ears: Symmetric. Hearing within normal limits. Mouth: Clear. Neck: Supple. Carotid without bruit. Cardiac: Regular rate and rhythm. Lungs: Clear anteriorly and posteriorly. Abdomen: Soft active nontender. Extremities: Normal tone. Neurological: Mental status: Alert, cooperative, pleasant. Cranial nerves: Symmetric facial tone and trapezius. Motor: Normal strength and isolation all 4 limbs. Sensation: Intact throughout. DTRs: Symmetric and equal throughout. Mobility: Sits and stands with standby assistance. Results CBC & Chem 7: 04/15/19 06:52 04/15/19 06:52 Labs: Abnormal Lab Results - Last 24 Hours (Table) 04/15/19 04/15/19 04/15/19 Range/Units 01:30 06:52 06:52 RDW 16.6 H (11.5-15.5) % PT 25.6 H (9.0-12.0) sec INR 2.6 H (<1.2) Sodium (137-145) mmol/L BUN (7-17) mg/dL Creatinine (0.52-1.04) mg/dL Glucose (74-99) mg/dL AST (14-36) U/L Total Protein (6.3-8.2) g/dL Albumin (3.5-5.0) g/dL Ur Leukocyte Esterase Trace H (Negative) Hyaline Casts 88 H (0-2) /lpf Urine Mucus Rare H (None) /hpf 04/15/19 Range/Units 06:52 RDW (11.5-15.5) % PT (9.0-12.0) sec INR (<1.2) Sodium 136 L (137-145) mmol/L BUN 44 H (7-17) mg/dL Creatinine 1.36 H (0.52-1.04) mg/dL Glucose 126 H (74-99) mg/dL AST 58 H (14-36) U/L Total Protein 5.9 L (6.3-8.2) g/dL Albumin 3.4 L (3.5-5.0) g/dL Ur Leukocyte Esterase (Negative) Hyaline Casts (0-2) /lpf Urine Mucus (None) /hpf Assessment and Plan (1) TYLER (acute kidney injury) Current Visit: Yes Status: Acute Code(s): N17.9 - ACUTE KIDNEY FAILURE, UNSPECIFIED SNOMED Code(s): 35972411 (2) CHF (congestive heart failure) Current Visit: Yes Status: Acute Code(s): I50.9 - HEART FAILURE, UNSPECIFIED SNOMED Code(s): 65573515 (3) Atrial fibrillation with RVR Current Visit: No Status: Acute Code(s): I48.91 - UNSPECIFIED ATRIAL FIBRILLATION SNOMED Code(s): 287817635659478 Plan: Impression: 1. Medical debility. 2. Hypertension. 3. A. fib with RVR. Constant plan: At this time PT and OT are prescribed. It appears as though patient's medical problem may have been brought on by medication and was now c orrected. I suspected if this is the case, patient should return to normal quickly. We will continue to follow with yourself including any PT or OT notes.
[2019-04-15] MEDS: SODIUM CHLORIDE 0.9% 1,000 ML IV SCH (16:49)
[2019-04-15] MEDS: WARFARIN 5 MG TAB PO SCH (17:51)
[2019-04-16] MEDS: PANTOPRAZOLE 40 MG TABLET PO SCH (06:17)
[2019-04-16 07:03] LABS: INR 2.1 (<1.2); Prothrombin Time 20.8 sec (9.0-12.0)
[2019-04-16 07:05] LABS: Anisocytosis Slight; Basophils # (A) 0.1 k/uL (0-0.2); Basophils % (A) 1 %; Eosinophils # (A) 0.2 k/uL (0-0.7); Eosinophils % (A) 2 %; HCT 49.4 % (34.0-46.0); HGB 15.2 gm/dL (11.4-16.0); Hypochromasia Moderate; Lymphocytes # (A) 2.2 k/uL (1.0-4.8); Lymphocytes % (A) 28 %; MCH 25.9 pg (25.0-35.0); MCHC 30.7 g/dL (31.0-37.0); MCV 84.4 fL (80.0-100.0); Mean Platelet Volume 6.8; Monocytes # (A) 0.5 k/uL (0-1.0); Monocytes % (A) 6 %; Neutrophils # (A) 4.8 k/uL (1.3-7.7); Neutrophils % (A) 61 %; Platelet Count 277 k/uL (150-450); RBC 5.85 m/uL (3.80-5.40); RDW 16.5 % (11.5-15.5); WBC 7.9 k/uL (3.8-10.6)
[2019-04-16 07:25] LABS: Albumin 3.9 g/dL (3.5-5.0); Calcium 9.5 mg/dL (8.4-10.2); Potassium 5.4 mmol/L (3.5-5.1); Total Bilirubin 0.7 mg/dL (0.2-1.3); Total Protein 6.6 g/dL (6.3-8.2)
[2019-04-16] MEDS: PRAVASTATIN SODIUM 40 MG TAB PO SCH (09:55)
[2019-04-16] MEDS: ASPIRIN 81 MG PO SCH (09:55)
[2019-04-16] MEDS: METOPROLOL SUCCINATE (ER) 100 MG TAB.ER.24H PO SCH ×2 (09:55→21:03)
[2019-04-16] MEDS ORDERED: SODIUM POLYSTYRENE SULFONATE 15 GM/60 ML BOTTLE PO STA (10:01)
--- NOTE | 2019-04-16 10:29 | P.PN ---
Subjective Progress Note Date: 04/16/19 This is a 88-year-old female patient who presented with complaints of low blood pressure. Patient was recently admitted and discharged on new cardiac meds including Lasix 60 mg twice a day lisinopril 5 mg verapamil and Lopressor. Patient reports that after her morning meds she would become very dizzy and lightheaded. Patient's granddaughter took blood pressure and was found to have systolic blood pressure in the 70s. Patient denies any recent illness at home. Patient denies nausea vomiting or diarrhea. Patient has past medical history of atrial fibrillation in which she's on Coumadin, heart failure, GERD, hyperlipidemia and hypertension. Upon arrival patient was also found to have acute kidney injury. Creatinine elevated at 1.7 0.45 and potassium 5.8. Cardiology services have been consulted. Metroprolol has been resumed all other meds on hold. Patient received 500cc of normal saline. At this time patient is resting comfortably in chair. Patient denies any chest pain or shortness of breath. Patient denies any urinary burning or frequency. Patient denies nausea vomiting or diarrhea 04/16/2019 patient is feeling better. No further episodes of dizziness or lightheadedness. Blood pressures have improved. No further episodes of hypotension. Last blood pressure 107/74. She remains in atrial fibrillation heart rate in the 1 teens to 120s. Currently on metoprolol. Yesterday cardiology admitted adjustments to medications. Verapamil discontinue lisinopril discontinued and Lasix was decreased to 40 mg daily. Creatinine is down from 1.36-1.11. Potassium 5.4 she's receiving Kayexalate. INR is 2.1. Objective - Vital Signs Vital signs: Vital Signs Temp 97.5 F L 04/16/19 04:00 Pulse 112 H 04/16/19 04:00 Resp 18 04/16/19 04:00 BP 107/74 04/16/19 04:00 Pulse Ox 98 04/16/19 04:00 Intake & Output 04/15/19 04/16/19 04/16/19 18:59 06:59 18:59 Intake Total 560 480 Output Total 400 Balance 560 80 Weight 65.5 kg Intake: Oral 560 480 Output: Urine 400 Other: Voiding Method Toilet Toilet # Voids 3 1 - Exam Head normocephalic Neck supple Lungs clear to auscultation bilaterally no wheezing or crackles Heart regular rate and rhythm S1-S2, no rub or gallop Abdomen is soft nontender nondistended positive bowel sounds no hepatosplenomegaly Extremities no edema Neuro alert and orientated to 3 - Labs CBC & Chem 7: 04/16/19 06:38 04/16/19 06:38 Labs: Abnormal Lab Results - Last 24 Hours (Table) 04/16/19 04/16/19 04/16/19 Range/Units 06:38 06:38 06:38 RBC 5.85 H (3.80-5.40) m/uL Hct 49.4 H (34.0-46.0) % MCHC 30.7 L (31.0-37.0) g/dL RDW 16.5 H (11.5-15.5) % PT 20.8 H (9.0-12.0) sec INR 2.1 H (<1.2) Potassium 5.4 H (3.5-5.1) mmol/L BUN 35 H (7-17) mg/dL Creatinine 1.11 H (0.52-1.04) mg/dL Glucose 113 H (74-99) mg/dL AST 58 H (14-36) U/L Assessment and Plan Assessment: 1. weakness and dizziness likely secondary to hypotension. Blood pressure has improved with adjustment in medications per cardiology. 2. Chronic diastolic congestive heart failure. Patient was recently hospitalized and sent home on increased dose of Lasix 60 mg twice a day. 2-D e cho completed showing an EF of 55-60%. Cardiology services have been consulted. No signs of exacerbation at this time. Per cardiology Lasix dose was decreased to 40 mg daily 3. Acute kidney injury. Likely secondary to diuretics. Creatinine is improving. 1.70 on admission now down to 1.11. 4. Paroxysmal atrial fibrillation/flutter atypical. Patient is maintained on Coumadin. Home Coumadin dose reordered. Current INR 2.1 5. History of essential hypertension. Patient having episodes of hypotension. Medications adjusted per cardiology 6. History of coronary artery disease with previous coronary artery bypass graft surgery 7. History of mitral valve repair 8. History of hyperlipidemia 9. Hyperkalemia: Potassium 5.4. We'll give Kayexalate. Repeat potassium level in a.m. Likely related to acute kidney injury. Potassium supplement held. Patient also educated to eat a low potassium diet. DVT prophylaxis Coumadin. GI prophylaxis Protonix Await further cardiology recommendations Anticipate discharge possibly tomorrow if cleared by cardiology. She'll be discharged to ECF. I performed an examination of the patient and discussed their management with the physician Contracting Executive. I have reviewed the Physician Contracting Executive's notes and agree with the documented findings and plan of care
[2019-04-16] MEDS: FUROSEMIDE 40 MG TAB PO SCH (11:24)
--- NOTE | 2019-04-16 14:58 | P.PN ---
Subjective Progress Note Date: 04/16/19 This is an 88-year-old female with history of coronary artery disease and prior bypass surgery, history of mitral valve repair, paroxysmal atrial fibrillation, hypertension, hyperlipidemia, GERD, follows with Dr. Leal in the office. She was recently in the hospital earlier this month with congestive heart failure. Patient was diuresed while she was here, overall felt well on discharge. For the first couple of days after discharge she states she was doing well, when she started noticing herself to be quite dizzy and lightheaded with some visual disturbance. She does check her blood pressure regularly at home and noted that she had a very low blood pressure. Chest x-ray showed findi ngs suggestive of COPD with bilateral lobe infiltrate. EKG on presentation here showed an atrial flutter with a variable rate. Blood pressure on arrival here 64/50 with a heart rate of 52, 97% on room air. Blood pressure this morning left arm 116/68, right arm 136/74. Heart rate in the 90s to 100s, 92% on room air. Laboratory data was reviewed, white blood cell count 7.1, hemoglobin 13.9, platelet count 262. INR is 2.6. Sodium 136, potassium 5.0, BUN 44 and creatinine 1.3. The patient was given IV fluids on arrival here, her Lasix had been placed on hold, she was resumed on her metoprolol pravastatin and Coumadin. At the time of my examination this morning the patient is feeling back to her normal self. 04/16/2019 Patient was seen and examined this morning, blood pressure was a little low again this morning in the 88-90 systolic range. The patient feels well however and denies any further episodes of lightheadedness or dizziness. Her diuretics were again held today. From our perspective she may be able to be discharged home today, we will hold the Lasix today and resume the Lasix at 40 mg daily from tomorrow. Objective - Vital Signs Vital signs: Vital Signs Temp 97.6 F 04/16/19 11:27 Pulse 101 H 04/16/19 11:27 Resp 18 04/16/19 11:27 BP 117/87 04/16/19 11:27 Pulse Ox 96 04/16/19 11:27 Intake & Output 06/19/19 06/20/19 06/20/19 18:59 06:59 18:59 Intake Total 560 702 Output Total 400 Balance 560 302 Weight 65.5 kg Intake: Oral 560 702 Output: Urine 400 Other: Voiding Method Toilet Toilet # Voids 3 1 - Exam PHYSICAL EXAMINATION: GENERAL: 88-year-old female in no acute distress at the examination HEENT: Head is atraumatic, normocephalic. Pupils equal, round. Sclera anicteric. Conjunctiva are clear. Mucous membranes of the mouth are moist. Neck is supple. There is no elevated jugular venous pressure. No carotid bruit is heard. HEART EXAMINATION: Heart S1 and S2 irregularly irregular a systolic murmur is heard CHEST EXAMINATION: Lungs are clear to auscultation and precussion. No chest wall tenderness is noted on palpation or with deep breathing. ABDOMEN: Soft, nontender. Bowel sounds are heard. No organomegaly noted. EXTREMITIES: 2+ peripheral pulses with no evidence of peripheral edema and no calf tenderness noted. NEUROLOGIC patient is awake, alert and oriented 3 . - Labs CBC & Chem 7: 04/16/19 06:38 04/16/19 06:38 Labs: Abnormal Lab Results - Last 24 Hours (Table) 04/16/19 04/16/19 04/16/19 Range/Units 06:38 06:38 06:38 RBC 5.85 H (3.80-5.40) m/uL Hct 49.4 H (34.0-46.0) % MCHC 30.7 L (31.0-37.0) g/dL RDW 16.5 H (11.5-15.5) % PT 20.8 H (9.0-12.0) sec INR 2.1 H (<1.2) Potassium 5.4 H (3.5-5.1) mmol/L BUN 35 H (7-17) mg/dL Creatinine 1.11 H (0.52-1.04) mg/dL Glucose 113 H (74-99) mg/dL AST 58 H (14-36) U/L Assessment and Plan Plan: Assessment and plan #1 symptoms of weakness with associated dizziness and lightheadedness likely secondary to hypotension, blood pressure on arrival here 68/40. #2 recent admission to the hospital with congestive cardiac failure which time patient was diuresed and sent home on increased dose of Lasix. Most recent echo showed an ejection fraction of 55-60%, LA was severely dilated, mitral ring annuloplasty was in place, severe tricuspid regurg was noted as well as pulmonary hypertension of a moderate degree. #3 known history of coronary artery disease with prior bypass surgery and mitral valve repair #4 paroxysmal atrial fibrillation/flutter, atypical #5 history of hypertension #6 hyperlipidemia #7 GERD Plan From cardiology's perspective, patient may be able to be discharged home today. We will resume her Lasix at 40 mg daily from tomorrow. Follow-up appointment in the office post discharge. DNP note has been reviewed, I agree with a documented findings and plan of care. Patient was seen and examined.
[2019-04-16] MEDS: SODIUM CHLORIDE 0.9% 1,000 ML IV SCH (18:02)
[2019-04-16] MEDS: WARFARIN 5 MG TAB PO SCH (18:15)
[2019-04-17] MEDS: PANTOPRAZOLE 40 MG TABLET PO SCH (06:41)
[2019-04-17 06:50] LABS: INR 2.2 (<1.2); Prothrombin Time 21.6 sec (9.0-12.0)
[2019-04-17 06:53] LABS: Albumin 3.3 g/dL (3.5-5.0); Calcium 8.9 mg/dL (8.4-10.2); Potassium 4.4 mmol/L (3.5-5.1); Total Bilirubin 0.6 mg/dL (0.2-1.3); Total Protein 5.6 g/dL (6.3-8.2)
[2019-04-17] MEDS: ASPIRIN 81 MG PO SCH (08:10)
[2019-04-17] MEDS: METOPROLOL SUCCINATE (ER) 100 MG TAB.ER.24H PO SCH (08:10)
[2019-04-17] MEDS: PRAVASTATIN SODIUM 40 MG TAB PO SCH (08:10)
[2019-04-17 08:13] VITALS: TEMP 97.6
[2019-04-17 10:02] LABS: Anisocytosis Slight; Basophils # (A) 0.1 k/uL (0-0.2); Basophils % (A) 1 %; Eosinophils # (A) 0.3 k/uL (0-0.7); Eosinophils % (A) 4 %; HCT 43.4 % (34.0-46.0); HGB 13.3 gm/dL (11.4-16.0); Hypochromasia Moderate; Lymphocytes # (A) 1.9 k/uL (1.0-4.8); Lymphocytes % (A) 29 %; MCH 26.1 pg (25.0-35.0); MCHC 30.8 g/dL (31.0-37.0); MCV 84.8 fL (80.0-100.0); Mean Platelet Volume 7.4; Monocytes # (A) 0.4 k/uL (0-1.0); Monocytes % (A) 7 %; Neutrophils # (A) 3.6 k/uL (1.3-7.7); Neutrophils % (A) 57 %; Platelet Count 242 k/uL (150-450); RBC 5.11 m/uL (3.80-5.40); RDW 16.7 % (11.5-15.5); WBC 6.4 k/uL (3.8-10.6)
[2019-04-17] MEDS: FUROSEMIDE 40 MG TAB PO SCH (13:02)
[2019-04-17] MEDS ORDERED: DIGOXIN 125 MCG TAB PO SCH (14:24)
--- NOTE | 2019-04-17 14:40 | P.DS ---
Providers Date of admission: 04/15/19 15:45 Expected date of discharge: 04/17/19 Attending physician: Barbara Rogers Consults: 04/14/19 16:25 Consult Physician Routine Consulting Provider: Justen Leal Consult Reason/Comments: Hypotension, A. fib, acute kidney injury Do you want consulting provider notified?: Yes 04/15/19 13:57 Consult Physician Routine Consulting Provider: Issa Chun Consult Reason/Comments: inpatient rehab Do you want consulting provider notified?: Yes Primary care physician: Barbara [facility] Course: Discharge diagnosis 1. weakness and dizziness likely secondary to hypotension. Blood pressure has improved with adjustment in medications per cardiology. 2. Chronic diastolic congestive heart failure. Patient was recently hospitalized and sent home on increased dose of Lasix 60 mg twice a day. 2-D echo completed showing an EF of 55-60%. Cardiology services have been consulted. No signs of exacerbation at this time. Per cardiology Lasix dose was decreased to 40 mg daily 3. Acute kidney injury. Likely secondary to diuretics. Creatinine is improving. 1.70 on admission now down to 1.08 4. Paroxysmal atrial fibrillation/flutter atypical. Patient is maintained on Coumadin. Home Coumadin dose reordered. Current INR 2.2 5. History of essential hypertension. Patient having episodes of hypotension. Medications adjusted per cardiology 6. History of coronary artery disease with previous coronary artery bypass graft surgery 7. History of mitral valve repair 8. History of hyperlipidemia 9. Hyperkalemia: Potassium 5.4. Resolved with Kayexalate. Her potassium supplement has been on hold. Potassium at discharge is 4.4. Again continue to monitor labs in the outpatient setting. Hospital course This is a 88-year-old female patient who presented with complaints of low blood pressure. Patient was recently admitted and discharged on new cardiac meds including Lasix 60 mg twice a day lisinopril 5 mg verapamil and Lopressor. Patient reports that after her morning meds she would become very dizzy and lightheaded. Patient's granddaughter took blood pressure and was found to have systolic blood pressure in the 70s. Patient denies any recent illness at home. Patient denies nausea vomiting or diarrhea. Patient has past medical history of atrial fibrillation in which she's on Coumadin, heart failure, GERD, hyperlipidemia and hypertension. Upon arrival patient was also found to have acute kidney injury. Creatinine elevated at 1.7 0.45 and potassium 5.8. Cardiology services have been consulted. Metroprolol has been resumed all other meds on hold. Patient received 500cc of normal saline. At this time patient is resting comfortably in chair. Patient denies any chest pain or shortness of breath. Patient denies any urinary burning or frequency. Patient denies nausea vomiting or diarrhea 04/16/2019 patient is feeling better. No further episodes of dizziness or lightheadedness. Blood pressures have improved. No further episodes of hypotension. Last blood pressure 107/74. She remains in atrial fibrillation heart rate in the 1 teens to 120s. Currently on metoprolol. Yesterday cardiology admitted adjustments to medications. Verapamil discontinue lisinopril discontinued and Lasix was decreased to 40 mg daily. Creatinine is down from 1.36-1.11. Potassium 5.4 she's receiving Kayexalate. INR is 2.1. 04/17/2019 patient is medically stable for discharge. She is also been cleared by cardiology for discharge. During this admission pressure medications have been adjusted. She initially presented with hypotension and dizziness. The verapamil and lisinopril were discontinued. Blood pressure has shown improvement. Heart rate was still slightly elevated today and cardiology did add digoxin. The recommending digoxin today and tomorrow and then the 125 g every 48 hours. Patient is no longer having any dizziness. She's eager for discharge. Patient will be discharged to [facility] in [place]. Would recommend checking's CMP and PT/INR in 3 days. Need to follow-up on LFTs, potassium and acute kidney injury. I performed an examination of the patient and discussed their management with the physician Flight Simulator Teacher. I have reviewed the Physician Flight Simulator Teacher's notes and agree with the documented findings and plan of care Patient Condition at Discharge: Stable Plan - Discharge Summary New Discharge Prescriptions: New Digoxin [Lanoxin] 125 mcg PO DAILY #1 tab Digoxin [Lanoxin] 125 mcg PO Q48H #30 tab Furosemide [Lasix] 40 mg PO DAILY tab Continue Omeprazole 20 mg PO DAILY Nitroglycerin Sl Tabs [Nitrostat] 0.4 mg SUBLINGUAL Q5M PRN #10 tab PRN Reason: Chest Pain Aspirin 81 mg PO DAILY #30 chew Metoprolol Succinate (ER) [Toprol XL] 100 mg PO BID #60 tab.er.24h Warfarin Sodium [Coumadin] 5 mg PO DAILY #30 tablet Discontinued Pravastatin Sodium [Pravachol] 40 mg PO DAILY Verapamil Sr [Isoptin Sr] 180 mg PO DAILY #30 tablet.er Potassium Chloride ER [K-Dur 20] 20 meq PO DAILY #30 tab Furosemide [Lasix] 60 mg PO BID@0900,1600 #60 tab Lisinopril [Zestril] 5 mg PO DAILY #30 tab Discharge Medication List Omeprazole 20 mg PO DAILY 01/04/18 [History] Nitroglycerin Sl Tabs [Nitrostat] 0.4 mg SUBLINGUAL Q5M PRN #10 tab 02/14/19 [Rx] Aspirin 81 mg PO DAILY #30 chew 04/09/19 [Rx] Metoprolol Succinate (ER) [Toprol XL] 100 mg PO BID #60 tab.er.24h 04/09/19 [Rx] Warfarin Sodium [Coumadin] 5 mg PO DAILY #30 tablet 04/09/19 [Rx] Digoxin [Lanoxin] 125 mcg PO DAILY #1 tab 04/17/19 [Rx] Digoxin [Lanoxin] 125 mcg PO Q48H #30 tab 04/17/19 [Rx] Furosemide [Lasix] 40 mg PO DAILY tab 04/17/19 [Rx] Follow up Appointment(s)/Referral(s): Justen Leal MD [STAFF PHYSICIAN] - 1 Week Barbara Rogers MD [Primary Care Provider] - 1 Week Ambulatory/Diagnostic Orders: Comprehensive Metabolic Panel [LAB.AMB] Time Frame: 3 Days, Location: None Selected Patient Instructions/Handouts: Hypotension (DC) Activity/Diet/Wound Care/Special Instructions: Diet: cardiac Activity: as tolerated Discharge Disposition: TRANSFER TO SNF/ECF
[2019-04-17 15:03] VITALS: BP 109/70; PULSE 123; RESP 16
[2019-04-18] MEDS ORDERED: DIGOXIN 125 MCG TAB PO SCH (09:00)
[2019-04-20] MEDS ORDERED: DIGOXIN 125 MCG TAB PO SCH (09:00)
== END 2019-04-17 15:29 | DRG 312 ==
LOC: EC 14:07 → 3SCARD 16:24 → OBSVTOIN 04-15 15:45
PROVIDERS: ADMIT Internal Medicine; ATTEND Internal Medicine
DX: I95.2 Hypotension due to drugs (principal); I48.4 Atypical atrial flutter; N17.9 Acute kidney failure, unspecified; I50.32 Chronic diastolic (congestive) heart failure; I07.1 Rheumatic tricuspid insufficiency; I27.20 Pulmonary hypertension, unspecified; E87.5 Hyperkalemia; I11.0 Hypertensive heart disease with heart failure; I48.0 Paroxysmal atrial fibrillation; T46.4X5A Adverse effect of angiotensin-converting-enzyme inhibitors, initial encounter; T46.1X5A Adverse effect of calcium-channel blockers, initial encounter; T50.2X5A Adverse effect of carbonic-anhydrase inhibitors, benzothiadiazides and other diuretics, initial encounter; H53.9 Unspecified visual disturbance; M19.90 Unspecified osteoarthritis, unspecified site; I25.10 Atherosclerotic heart disease of native coronary artery without angina pectoris; E78.5 Hyperlipidemia, unspecified; K21.9 Gastro-esophageal reflux disease without esophagitis; Z79.82 Long term (current) use of aspirin; Z79.01 Long term (current) use of anticoagulants; Z79.899 Other long term (current) drug therapy; Z85.828 Personal history of other malignant neoplasm of skin; Z98.890 Other specified postprocedural states; Z95.1 Presence of aortocoronary bypass graft; Z95.2 Presence of prosthetic heart valve; Z90.710 Acquired absence of both cervix and uterus; Z96.60 Presence of unspecified orthopedic joint implant; Z80.0 Family history of malignant neoplasm of digestive organs; Z83.3 Family history of diabetes mellitus; Z82.49 Family history of ischemic heart disease and other diseases of the circulatory system; Y92.009 Unspecified place in unspecified non-institutional (private) residence as the place of occurrence of the external cause
CPT/HCPCS: 36415; 71045; 80053; 81001; 83605; 83735; 85025; 85610; 85730; 93005; 96360; 96361; 99285

== ENCOUNTER 2019-07-16 15:31 | Inpatient (IN) | payer MEDICARE, BC ==
[2019-07-16] MEDS ORDERED: SODIUM CHLORIDE 0.9% 500 ML 500 ML IV STA (17:33)
--- NOTE | 2019-07-16 17:33 | ED ---
General Adult HPI - General Chief complaint: Weakness Stated complaint: CHF, weakness Time Seen by Provider: 07/16/19 17:07 Source: patient, RN notes reviewed Mode of arrival: EMS Limitations: no limitations - History of Present Illness Initial comments: 89-year-old female with a past medical history of atrial fibrillation on Coumadin and beta rick, heart failure, GERD, hyperlipidemia, hypertension presents to the emergency department for weakness. Patient has been weak for about 3 days. Patient has had a cough and a runny nose for the past few days and has also been nauseous and vomiting. Denies any chest pain or shortness of breath. Patient did fall twice today due to weakness. She did not hit her head. Patient has no other complaints at this time including shortness of breath, chest pain, abdominal pain, or visual changes. - Related Data Home Medications Medication Instructions Recorded Confirmed Omeprazole 20 mg PO DAILY 01/04/18 07/16/19 Warfarin Sodium [Coumadin] 5 mg PO SUTUTH 07/16/19 07/16/19 Warfarin [Coumadin] 2.5 mg PO MOWEFRSA 07/16/19 07/16/19 Previous Rx's Medication Instructions Recorded Nitroglycerin Sl Tabs [Nitrostat] 0.4 mg SUBLINGUAL Q5M PRN #10 tab 02/14/19 Aspirin 81 mg PO DAILY #30 chew 04/09/19 Metoprolol Succinate (ER) [Toprol 100 mg PO BID #60 tab.er.24h 04/09/19 XL] Digoxin [Lanoxin] 125 mcg PO DAILY #1 tab 04/17/19 Furosemide [Lasix] 40 mg PO DAILY tab 04/17/19 Allergies Allergy/AdvReac Type Severity Reaction Status Date / Time No Known Allergies Allergy Verified 07/16/19 16:01 Review of Systems ROS Statement: Those systems with pertinent positive or pertinent negative responses have been documented in the HPI. ROS Other: All systems not noted in ROS Statement are negative. 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, skin cancer with removals History of Any Multi-Drug Resistant Organisms: None Reported Past Surgical History: Appendectomy, Cardiac Valve Replacement, Coronary Bypass/CABG, Hysterectomy, Joint Replacement Additional Past Surgical History / Comment(s): Valve repair Dec 13, 2015 Past Anesthesia/Blood Transfusion Reactions: No Reported Reaction Past Psychological History: No Psychological Hx Reported Smoking Status: Never smoker Past Alcohol Use History: None Reported Past Drug Use History: None Reported - Past Family History Father Family Medical History: Cancer Additional Family Medical History / Comment(s): Father of pancreatic cancer w/ mets at the age of 53 yrs. Mother Family Medical History: AFIB, Diabetes Mellitus Additional Family Medical History / Comment(s): Mother lived to be 80yrs old. General Exam Limitations: no limitations General appearance: alert, in no apparent distress Head exam: Present: atraumatic, normocephalic, normal inspection Eye exam: Present: normal appearance, PERRL, EOMI. Absent: scleral icterus, conjunctival injection, periorbital swelling ENT exam: Present: normal exam, mucous membranes moist Neck exam: Present: normal inspection, full ROM. Absent: tenderness, menin gismus, lymphadenopathy Respiratory exam: Present: normal lung sounds bilaterally. Absent: respiratory distress, wheezes, rales, rhonchi, stridor Cardiovascular Exam: Present: regular rate, normal rhythm, normal heart sounds. Absent: systolic murmur, diastolic murmur, rubs, gallop, clicks GI/Abdominal exam: Present: soft, normal bowel sounds. Absent: distended, tenderness, guarding, rebound, rigid Neurological exam: Present: alert, oriented X3, CN II-XII intact Psychiatric exam: Present: normal affect, normal mood Course Vital Signs 07/16/19 07/16/19 07/16/19 15:33 18:00 19:30 Temperature 97.9 F Pulse Rate 103 H 92 105 H Respiratory 18 18 18 Rate Blood Pressure 115/75 114/96 131/96 O2 Sat by Pulse 93 L 95 94 L Oximetry Medical Decision Making - Medical Decision Making 89-year-old female with a past medical history of atrial fibrillation, heart failure, GERD, hyperlipidemia, hypertension presents for weakness. Patient has been a week for 3 days with associated cough, runny nose, nausea and vomiting. Patient fell twice today due to the weakness. Vitals are stable. Patient is minimally tachycardic. CBC unremarkable. INR 1.4, patient on Coumadin for atrial fibrillation. CMP is unremarkable. Troponin is negative. CT brain sh ows cerebral atrophy with chronic small vessel ischemia and old infarct. No significant progression compared to old exam. Chest x-ray shows cardiomegaly with mild atelectasis. No heart failure. I did attempt to walk patient with family. She requires a 2 person assist. Daughter does not feel comfortable taking her home because she would have to take her home to [place] and all her doctors are here. Patient will be admitted for further monitoring. However will not be started on antibiotics for cough as she does not have fever or evidence of pneumonia on x-ray. - Lab Data Result diagrams: 07/16/19 16:20 07/16/19 16:20 Lab Results 07/16/19 07/16/19 07/16/19 Range/Units 16:20 16:20 16:20 WBC 10.1 (3.8-10.6) k/uL RBC 5.11 (3.80-5.40) m/uL Hgb 13.9 (11.4-16.0) gm/dL Hct 42.5 (34.0-46.0) % MCV 83.1 (80.0-100.0) fL MCH 27.2 (25.0-35.0) pg MCHC 32.8 (31.0-37.0) g/dL RDW 18.1 H (11.5-15.5) % Plt Count 239 (150-450) k/uL Neutrophils % 80 % Lymphocytes % 11 % Monocytes % 6 % Eosinophils % 1 % Basophils % 1 % Neutrophils # 8.0 H (1.3-7.7) k/uL Lymphocytes # 1.1 (1.0-4.8) k/uL Monocytes # 0.6 (0-1.0) k/uL Eosinophils # 0.1 (0-0.7) k/uL Basophils # 0.1 (0-0.2) k/uL Anisocytosis Slight PT 14.2 H (9.0-12.0) sec INR 1.4 H (<1.2) APTT 25.2 (22.0-30.0) sec Sodium 137 (137-145) mmol/L Potassium 4.3 (3.5-5.1) mmol/L Chloride 98 (98-107) mmol/L Carbon Dioxide 31 H (22-30) mmol/L Anion Gap 8 mmol/L BUN 19 H (7-17) mg/dL Creatinine 0.87 (0.52-1.04) mg/dL Est GFR (CKD-EPI)AfAm 69 (>60 ml/min/1.73 sqM) Est GFR (CKD-EPI)NonAf 60 (>60 ml/min/1.73 sqM) Glucose 134 H (74-99) mg/dL Plasma Lactic Acid Cristofer (0.7-2.0) mmol/L Calcium 9.1 (8.4-10.2) mg/dL Magnesium 1.7 (1.6-2.3) mg/dL Total Bilirubin 1.3 (0.2-1.3) mg/dL AST 39 H (14-36) U/L ALT 23 (9-52) U/L Alkaline Phosphatase 65 (38-126) U/L Troponin I (0.000-0.034) ng/mL NT-Pro-B Natriuret Pep pg/mL Total Protein 6.4 (6.3-8.2) g/dL Albumin 3.9 (3.5-5.0) g/dL TSH 2.330 (0.465-4.680) mIU/L Urine Color Urine Appearance (Clear) Urine pH (5.0-8.0) Ur Specific Selden (1.001-1.035) Urine Protein (Negative) Urine Glucose (UA) (Negative) Urine Ketones (Negative) Urine Blood (Negative) Urine Nitrite (Negative) Urine Bilirubin (Negative) Urine Urobilinogen (<2.0) mg/dL Ur Leukocyte Esterase (Negative) Influenza Type A RNA (Not Detectd) Influenza Type B (PCR) (Not Detectd) 07/16/19 07/16/19 07/16/19 Range/Units 16:20 16:20 18:04 WBC (3.8-10.6) k/uL RBC (3.80-5.40) m/uL Hgb (11.4-16.0) gm/dL Hct (34.0-46.0) % MCV (80.0-100.0) fL MCH (25.0-35.0) pg MCHC (31.0-37.0) g/dL RDW (11.5-15.5) % Plt Count (150-450) k/uL Neutrophils % % Lymphocytes % % Monocytes % % Eosinophils % % Basophils % % Neutrophils # (1.3-7.7) k/uL Lymphocytes # (1.0-4.8) k/uL Monocytes # (0-1.0) k/uL Eosinophils # (0-0.7) k/uL Basophils # (0-0.2) k/uL Anisocytosis PT (9.0-12.0) sec INR (<1.2) APTT (22.0-30.0) sec Sodium (137-145) mmol/L Potassium (3.5-5.1) mmol/L Chloride (98-107) mmol/L Carbon Dioxide (22-30) mmol/L Anion Gap mmol/L BUN (7-17) mg/dL Creatinine (0.52-1.04) mg/dL Est GFR (CKD-EPI)AfAm (>60 ml/min/1.73 sqM) Est GFR (CKD-EPI)NonAf (>60 ml/min/1.73 sqM) Glucose (74-99) mg/dL Plasma Lactic Acid Cristofer 1.3 (0.7-2.0) mmol/L Calcium (8.4-10.2) mg/dL Magnesium (1.6-2.3) mg/dL Total Bilirubin (0.2-1.3) mg/dL AST (14-36) U/L ALT (9-52) U/L Alkaline Phosphatase (38-126) U/L Troponin I <0.012 (0.000-0.034) ng/mL NT-Pro-B Natriuret Pep 3560 pg/mL Total Protein (6.3-8.2) g/dL Albumin (3.5-5.0) g/dL TSH (0.465-4.680) mIU/L Urine Color Urine Appearance (Clear) Urine pH (5.0-8.0) Ur Specific Selden (1.001-1.035) Urine Protein (Negative) Urine Glucose (UA) (Negative) Urine Ketones (Negative) Urine Blood (Negative) Urine Nitrite (Negative) Urine Bilirubin (Negative) Urine Urobilinogen (<2.0) mg/dL Ur Leukocyte Esterase (Negative) Influenza Type A RNA (Not Detectd) Influenza Type B (PCR) (Not Detectd) 07/16/19 07/16/19 Range/Units 18:57 19:32 WBC (3.8-10.6) k/uL RBC (3.80-5.40) m/uL Hgb (11.4-16.0) gm/dL Hct (34.0-46.0) % MCV (80.0-100.0) fL MCH (25.0-35.0) pg MCHC (31.0-37.0) g/dL RDW (11.5-15.5) % Plt Count (150-450) k/uL Neutrophils % % Lymphocytes % % Monocytes % % Eosinophils % % Basophils % % Neutrophils # (1.3-7.7) k/uL Lymphocytes # (1.0-4.8) k/uL Monocytes # (0-1.0) k/uL Eosinophils # (0-0.7) k/uL Basophils # (0-0.2) k/uL Anisocytosis PT (9.0-12.0) sec INR (<1.2) APTT (22.0-30.0) sec Sodium (137-145) mmol/L Potassium (3.5-5.1) mmol/L Chloride (98-107) mmol/L Carbon Dioxide (22-30) mmol/L Anion Gap mmol/L BUN (7-17) mg/dL Creatinine (0.52-1.04) mg/dL Est GFR (CKD-EPI)AfAm (>60 ml/min/1.73 sqM) Est GFR (CKD-EPI)NonAf (>60 ml/min/1.73 sqM) Glucose (74-99) mg/dL Plasma Lactic Acid Cristofer (0.7-2.0) mmol/L Calcium (8.4-10.2) mg/dL Magnesium (1.6-2.3) mg/dL Total Bilirubin (0.2-1.3) mg/dL AST (14-36) U/L ALT (9-52) U/L Alkaline Phosphatase (38-126) U/L Troponin I (0.000-0.034) ng/mL NT-Pro-B Natriuret Pep pg/mL Total Protein (6.3-8.2) g/dL Albumin (3.5-5.0) g/dL TSH (0.465-4.680) mIU/L Urine Color Yellow Urine Appearance Clear (Clear) Urine pH 5.5 (5.0-8.0) Ur Specific Selden 1.011 (1.001-1.035) Urine Protein Negative (Negative) Urine Glucose (UA) Negative (Negative) Urine Ketones Negative (Negative) Urine Blood Negative (Negative) Urine Nitrite Negative (Negative) Urine Bilirubin Negative (Negative) Urine Urobilinogen <2.0 (<2.0) mg/dL Ur Leukocyte Esterase Negative (Negative) Influenza Type A RNA Not Detected (Not Detectd) Influenza Type B (PCR) Not Detected (Not Detectd) Disposition Clinical Impression: Weakness Disposition: ADMITTED IP TO THIS HOSP Condition: Fair Is patient prescribed a controlled substance at d/c from ED?: No Referrals: Barbara Rogers MD [Primary Care Provider] - 1-2 days
[2019-07-16 17:48] LABS: Anisocytosis Slight; Basophils # (A) 0.1 k/uL (0-0.2); Basophils % (A) 1 %; Eosinophils # (A) 0.1 k/uL (0-0.7); Eosinophils % (A) 1 %; HCT 42.5 % (34.0-46.0); HGB 13.9 gm/dL (11.4-16.0); Lymphocytes # (A) 1.1 k/uL (1.0-4.8); Lymphocytes % (A) 11 %; MCH 27.2 pg (25.0-35.0); MCHC 32.8 g/dL (31.0-37.0); MCV 83.1 fL (80.0-100.0); Mean Platelet Volume 6.8; Monocytes # (A) 0.6 k/uL (0-1.0); Monocytes % (A) 6 %; Neutrophils % (A) 80 %; Platelet Count 239 k/uL (150-450); RBC 5.11 m/uL (3.80-5.40); RDW 18.1 % (11.5-15.5); WBC 10.1 k/uL (3.8-10.6)
[2019-07-16 17:52] LABS: Albumin 3.9 g/dL (3.5-5.0); Calcium 9.1 mg/dL (8.4-10.2); Magnesium 1.7 mg/dL (1.6-2.3); Potassium 4.3 mmol/L (3.5-5.1); Total Bilirubin 1.3 mg/dL (0.2-1.3); Total Protein 6.4 g/dL (6.3-8.2)
[2019-07-16 17:53] LABS: INR 1.4 (<1.2); Partial Thromboplastin Time 25.2 sec (22.0-30.0); Prothrombin Time 14.2 sec (9.0-12.0)
--- NOTE | 2019-07-16 18:12 | CT ---
EXAMINATION TYPE: CT brain wo con DATE OF EXAM: 07/16/2019 COMPARISON: 05/26/2012 HISTORY: Vertigo CT DLP: mGycm Automated exposure control for dose reduction was used. FINDINGS: There is cerebral cortical atrophy. There is no mass effect nor midline shift. There is no sign of in tracranial hemorrhage. There is hypodensity in the periventricular white matter. There is more notice able hypodensity left anterior internal capsule. Calvarium is intact. IMPRESSION: CEREBRAL ATROPHY. CHRONIC SMALL VESSEL ISCHEMIA. 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 NO SIGNIFICANT PROGRESSION COMPARED TO OLD EXAM.
--- NOTE | 2019-07-16 18:13 | XR ---
EXAMINATION TYPE: XR chest 2V DATE OF EXAM: 07/16/2019 COMPARISON: 04/14/2019 HISTORY: Cough and weakness TECHNIQUE: Frontal and lateral views of the chest are obtained. FINDINGS: Heart is enlarged. There is some linear density in the left lower lobe. There are sternal wires. There are chest leads. Costophrenic angles are clear. Thoracic aorta is atheromatous. IMPRESSION: Cardiomegaly. Mild atelectasis left lung base is increased compared to old exam. No hear t failure.
[2019-07-16 19:08] LABS: Appearance,Urine Clear (Clear); Bilirubin,Urine Negative (Negative); Blood,Urine Negative (Negative); Color,Urine Yellow; Glucose,Urine (UA) Negative (Negative); Ketones,Urine Negative (Negative); Leukocyte Esterase,Urine Negative (Negative); Nitrite,Urine Negative (Negative); PH, Urine 5.5 (5.0-8.0); Protein,Urine Negative (Negative); Specific Gravity,Urine 1.011 (1.001-1.035); Urobilinogen,Urine <2.0 mg/dL (<2.0)
[2019-07-16] MEDS ORDERED: NALOXONE 0.4 MG/ML 1 ML VIAL IV PRN (21:09)
[2019-07-16] MEDS: SODIUM CHLORIDE 0.9% 1,000 ML IV SCH (22:17)
[2019-07-16] MEDS ORDERED: NITROGLYCERIN SL TABS 0.4 MG TAB SUBLINGUAL PRN (23:28)
[2019-07-16] MEDS: WARFARIN 5 MG TAB PO SCH (23:44)
[2019-07-16] MEDS: METOPROLOL SUCCINATE (ER) 100 MG TAB.ER.24H PO SCH (23:44)
[2019-07-17] MEDS: ASPIRIN 81 MG PO SCH (08:34)
[2019-07-17] MEDS: FUROSEMIDE 40 MG TAB PO SCH (08:34)
[2019-07-17] MEDS: PANTOPRAZOLE 40 MG TABLET PO SCH (08:34)
[2019-07-17] MEDS: METOPROLOL SUCCINATE (ER) 100 MG TAB.ER.24H PO SCH ×2 (08:34→20:04)
[2019-07-17] MEDS: DIGOXIN 125 MCG TAB PO SCH (09:19)
[2019-07-17 09:35] LABS: Anisocytosis Slight; Basophils # (A) 0.2 k/uL (0-0.2); Basophils % (A) 2 %; Eosinophils # (A) 0.2 k/uL (0-0.7); Eosinophils % (A) 2 %; HCT 42.5 % (34.0-46.0); Lymphocytes # (A) 1.5 k/uL (1.0-4.8); Lymphocytes % (A) 19 %; MCH 27.6 pg (25.0-35.0); MCV 83.8 fL (80.0-100.0); Monocytes # (A) 0.5 k/uL (0-1.0); Monocytes % (A) 7 %; Neutrophils # (A) 5.4 k/uL (1.3-7.7); Neutrophils % (A) 68 %; Platelet Count 233 k/uL (150-450); RBC 5.08 m/uL (3.80-5.40); RDW 18.2 % (11.5-15.5); WBC 7.9 k/uL (3.8-10.6)
--- NOTE | 2019-07-17 10:14 | P.HPIM ---
History of Present Illness H&P Date: 07/17/19 this is an 89-year-old female patient who presented with complaints of increased weakness over the past 3 days. Patient does reports she had been falling but denies any episodes of loss of consciousness. Patient denies any specific injury to back hip or any other parts of body. Patient denies any recent illness patient does reports she's had a cough but denies any fevers nausea vomiting or diarrhea. Patient does have a past medical history of atrial fibrillation in which she is maintained on Coumadin, CHF, GERD, hyperlipidemia, hypertension and skin cancer. Patient currently lives independently. Head CT completed showing cerebral atrophy. Chronic small vessel ischemia old lacunar infarct left anterior internal capsule. No significant progression compared to old exam. Chest x-ray completed showing cardiomegaly mild atelectasis left lung base is increased compared to old exam. No heart failure. EKG completed showing sinus tachycardia with second-degree AV block with occasional premature ventricular complexes. UA negative. At this time patient denies chest pain or shortness breath. Patient denies vomiting diarrhea. Patient denies any urinary burning or frequency. 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 She is independent. Smoking Status: Never smoker Past Alcohol Use History: None Reported Past Drug Use History: None Reported - Past Family History Father Family Medical History: Cancer Additional Family Medical History / Comment(s): Father of pancreatic cancer w/ mets at the age of 53 yrs. Mother Family Medical History: AFIB, Diabetes Mellitus Additional Family Medical History / Comment(s): Mother lived to be 80yrs old. Medications and Allergies Home Medications Medication Instructions Recorded Confirmed Type Omeprazole 20 mg PO DAILY 01/04/18 07/16/19 History Nitroglycerin Sl Tabs [Nitrostat] 0.4 mg SUBLINGUAL Q5M PRN #10 tab 02/14/19 07/16/19 Rx Aspirin 81 mg PO DAILY #30 chew 04/09/19 07/16/19 Rx Metoprolol Succinate (ER) [Toprol 100 mg PO BID #60 tab.er.24h 04/09/19 07/16/19 Rx XL] Digoxin [Lanoxin] 125 mcg PO DAILY #1 tab 04/17/19 07/16/19 Rx Furosemide [Lasix] 40 mg PO DAILY tab 04/17/19 07/16/19 Rx Warfarin Sodium [Coumadin] 5 mg PO SUTUTH 07/16/19 07/16/19 History Warfarin [Coumadin] 2.5 mg PO MOWEFRSA 07/16/19 07/16/19 History Allergies Allergy/AdvReac Type Severity Reaction Status Date / Time No Known Allergies Allergy Verified 07/16/19 16:01 Physical Exam Vitals: Vital Signs Temp Pulse Pulse Resp BP BP Pulse Ox 07/17/19 07:51 98.5 F 82 17 149/80 96 07/17/19 01:31 98.5 F 111 H 19 134/93 94 L 07/16/19 21:40 97.6 F 82 16 123/74 94 L 07/16/19 21:00 97.8 F 94 18 122/87 95 07/16/19 19:30 105 H 18 131/96 94 L 07/16/19 18:00 92 18 114/96 95 07/16/19 15:33 97.9 F 103 H 18 115/75 93 L Intake and Output 07/16/19 07/17/19 07/17/19 22:59 06:59 14:59 Intake Total 480 Balance 480 Intake: Oral 480 Other: Voiding Method Toilet Toilet # Voids 1 Weight 64.41 kg 72 kg Head normocephalic Neck supple Lungs clear to auscultation bilaterally no wheezing or crackles Heart regular rate and rhythm S1-S2, no rub or gallop Abdomen is soft nontender nondistended positive bowel sounds no hepatosplenomegaly Extremities no edema Neuro alert and orientated to 3 Results CBC & Chem 7: 07/17/19 09:21 07/16/19 16:20 Labs: Abnormal Lab Results - Last 24 Hours (Table) 07/16/19 07/16/19 07/16/19 Range/Units 16:20 16:20 16:20 RDW 18.1 H (11.5-15.5) % Neutrophils # 8.0 H (1.3-7.7) k/uL PT 14.2 H (9.0-12.0) sec INR 1.4 H (<1.2) Carbon Dioxide 31 H (22-30) mmol/L BUN 19 H (7-17) mg/dL Glucose 134 H (74-99) mg/dL AST 39 H (14-36) U/L 07/17/19 Range/Units 09:21 RDW 18.2 H (11.5-15.5) % Neutrophils # (1.3-7.7) k/uL PT (9.0-12.0) sec INR (<1.2) Carbon Dioxide (22-30) mmol/L BUN (7-17) mg/dL Glucose (74-99) mg/dL AST (14-36) U/L Thrombosis Risk Factor Assmnt - Choose All That Apply Each Risk Factor Represents 3 Points: Age 75 years or older Other congenital or acquired thrombophilia - If yes, enter type in comment: No Thrombosis Risk Factor Assessment Total Risk Factor Score: 3 Thrombosis Risk Factor Assessment Level: Moderate Risk Assessment and Plan Assessment: 1. Increased weakness with falls. Head CT completed showing cerebral atrophy. Chronic small vessel ischemia. 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 No significant progression compared to old exam. Patient denies any specific injuries. PT OT consulted. No signs of infection. Orthostatic blood pressures will be ordered 2. Paroxysmal atrial fibrillation maintained on Coumadin for anticoagulation. INR 1.4 3. Chronic diastolic congestive heart failure. Patient maintained on Lasix 4. History of essential hypertension 5. History of coronary artery disease with previous coronary artery bypass graft surgery 6. History of mitral valve repair 7. History of hyperlipidemia DVT prophylaxis Coumadin. GI prophylaxis Protonix PT OT consulted Social consulted for discharge planning Time with Patient: Greater than 30 (Greater than 60% of the total time spent in counseling and coordination of care. I performed an examination of the patient and discussed their management with the Nurse Practitioner. I have reviewed the Nurse Practitioner's notes and agree with the documented findings and plan of care)
[2019-07-17 12:56] LABS: INR 1.3 (<1.2); Prothrombin Time 13.4 sec (9.0-12.0)
[2019-07-17] MEDS ORDERED: WARFARIN 2.5 MG TAB PO SCH (18:00)
[2019-07-17] MEDS ORDERED: WARFARIN 7.5 MG TAB PO ONE (18:00)
[2019-07-17] MEDS ORDERED: WARFARIN 5 MG TAB PO ONE (18:00)
[2019-07-17] MEDS: SODIUM CHLORIDE 0.9% 1,000 ML IV SCH (22:32)
[2019-07-18 06:13] LABS: INR 1.6 (<1.2); Prothrombin Time 16.3 sec (9.0-12.0)
[2019-07-18 06:14] LABS: Anisocytosis Slight; Basophils # (A) 0.1 k/uL (0-0.2); Basophils % (A) 1 %; Eosinophils # (A) 0.3 k/uL (0-0.7); Eosinophils % (A) 4 %; HCT 41.9 % (34.0-46.0); HGB 13.4 gm/dL (11.4-16.0); Lymphocytes # (A) 1.8 k/uL (1.0-4.8); Lymphocytes % (A) 25 %; MCHC 32.1 g/dL (31.0-37.0); MCV 84.3 fL (80.0-100.0); Mean Platelet Volume 6.4; Monocytes # (A) 0.5 k/uL (0-1.0); Monocytes % (A) 7 %; Neutrophils # (A) 4.3 k/uL (1.3-7.7); Neutrophils % (A) 61 %; Platelet Count 210 k/uL (150-450); RBC 4.98 m/uL (3.80-5.40); RDW 17.1 % (11.5-15.5)
[2019-07-18 06:44] LABS: Albumin 3.3 g/dL (3.5-5.0); Calcium 8.8 mg/dL (8.4-10.2); Potassium 4.5 mmol/L (3.5-5.1); Total Bilirubin 0.7 mg/dL (0.2-1.3); Total Protein 5.8 g/dL (6.3-8.2)
[2019-07-18] MEDS: FUROSEMIDE 40 MG TAB PO SCH (08:14)
[2019-07-18] MEDS: ASPIRIN 81 MG PO SCH (08:14)
[2019-07-18] MEDS: DIGOXIN 125 MCG TAB PO SCH (08:14)
[2019-07-18] MEDS: PANTOPRAZOLE 40 MG TABLET PO SCH (08:15)
[2019-07-18] MEDS: METOPROLOL SUCCINATE (ER) 100 MG TAB.ER.24H PO SCH ×2 (08:15→19:54)
[2019-07-18 11:29] VITALS: BMI 28.0
--- NOTE | 2019-07-18 11:48 | P.CRDCN ---
History of Present Illness Consult date: 07/18/19 History of present illness: This is a 88-year-old female with history of coronary artery disease with previous bypass surgery, mitral valve repair, atrial fibrillation, hypertension and hyperlipidemia who comes in for follow-up. Patient also has history of GERD syndrome. Patient was admitted in March of this year to this hospital with hypotension and dizziness. At the time she was found to be hypotensive. The dose of the diuretics was suggested. Patient now comes with complaints of again weakness and tendency to fall. Denied any chest pain or shortness of breath. Her EKG was interpreted as showing second-degree AV block. However, close inspection shows evidence of atrial fibrillation with moderate ventricular response. Patient is not hypotensive this time. Her blood pressure is the range of 140/70. Today she is feeling better and wants to go home. Her lab work showed normal hemoglobin, normal BUN/creatinine. At this point I'm not seeing any cardiac issues. Increase activity as tolerated. Check blood pressures for any postural changes. When medically fit, patient could be discharged home. Follow-up with Dr. 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 She is independent. Smoking Status: Never smoker Past Alcohol Use History: None Reported Past Drug Use History: None Reported - Past Family History Father Family Medical History: Cancer Additional Family Medical History / Comment(s): Father of pancreatic cancer w/ mets at the age of 53 yrs. Mother Family Medical History: AFIB, Diabetes Mellitus Additional Family Medical History / Comment(s): Mother lived to be 80yrs old. Medications and Allergies Home Medications Medication Instructions Recorded Confirmed Type Omeprazole 20 mg PO DAILY 01/04/18 07/16/19 History Nitroglycerin Sl Tabs [Nitrostat] 0.4 mg SUBLINGUAL Q5M PRN #10 tab 02/14/19 07/16/19 Rx Aspirin 81 mg PO DAILY #30 chew 04/09/19 07/16/19 Rx Metoprolol Succinate (ER) [Toprol 100 mg PO BID #60 tab.er.24h 04/09/19 07/16/19 Rx XL] Digoxin [Lanoxin] 125 mcg PO DAILY #1 tab 04/17/19 07/16/19 Rx Furosemide [Lasix] 40 mg PO DAILY tab 04/17/19 07/16/19 Rx Warfarin Sodium [Coumadin] 5 mg PO SUTUTH 07/16/19 07/16/19 History Warfarin [Coumadin] 2.5 mg PO MOWEFRSA 07/16/19 07/16/19 History Allergies Allergy/AdvReac Type Severity Reaction Status Date / Time No Known Allergies Allergy Verified 07/16/19 16:01 Physical Exam Vitals: Vital Signs Temp Pulse Pulse Pulse Pulse Resp BP 07/18/19 08:21 97.0 F L 73 18 07/18/19 07:48 16 07/18/19 03:10 97.9 F 85 16 07/17/19 23:41 97.8 F 89 16 07/17/19 19:40 16 07/17/19 19:05 97.6 F 108 H 16 139/83 07/17/19 15:00 98 F 98 12 07/17/19 12:08 100 109 H 73 BP BP BP Pulse Ox 07/18/19 08:21 133/70 98 07/18/19 07:48 07/18/19 03:10 147/96 93 L 07/17/19 23:41 144/96 92 L 07/17/19 19:40 07/17/19 19:05 92 L 07/17/19 15:00 101/64 92 L 07/17/19 12:08 92/61 89/62 100/70 Intake and Output 07/17/19 07/18/19 07/18/19 22:59 06:59 14:59 Intake Total 240 360 Balance 240 360 Intake: Oral 240 360 Other: Voiding Method Toilet Toilet Toilet Weight 72 kg GENERAL EXAM: Patient is alert and oriented and doesn't appear to be in any acute distress HEENT: Normocephalic. Normal reaction of pupils, equal size, normal range of extraocular motion. No erythema or exudates in the throat. NECK: No masses, no nuchal rigidity. CHEST: No chest wall deformity. LUNGS: Equal air entry with no crackles or wheeze. HEART: S1 and S2 normal with no audible mumurs or gallops. Regular rhythm, femorals equal on both sides.. ABDOMEN: No hepatosplenomegaly, normal bowel sounds, no guarding or rigidity. SKIN: No rashes CENTRAL NERVOUS SYSTEM: No focal deficits. EXTREMITIES: No cyanosis, clubbing or edema. Results 07/18/19 05:32 07/18/19 05:32 Cardiac Enzymes 07/18/19 Range/Units 05:32 AST 43 H (14-36) U/L Coagulation 07/17/19 07/18/19 Range/Units 12:38 05:32 PT 13.4 H 16.3 H (9.0-12.0) sec CBC 07/18/19 Range/Units 05:32 WBC 7.0 (3.8-10.6) k/uL RBC 4.98 (3.80-5.40) m/uL Hgb 13.4 (11.4-16.0) gm/dL Hct 41.9 (34.0-46.0) % Plt Count 210 (150-450) k/uL Comprehensive Metabolic Panel 07/18/19 Range/Units 05:32 Sodium 137 (137-145) mmol/L Potassium 4.5 (3.5-5.1) mmol/L Chloride 101 (98-107) mmol/L Carbon Dioxide 29 (22-30) mmol/L BUN 26 H (7-17) mg/dL Creatinine 0.87 (0.52-1.04) mg/dL Glucose 115 H (74-99) mg/dL Calcium 8.8 (8.4-10.2) mg/dL AST 43 H (14-36) U/L ALT 23 (9-52) U/L Alkaline Phosphatase 64 (38-126) U/L Total Protein 5.8 L (6.3-8.2) g/dL Albumin 3.3 L (3.5-5.0) g/dL Current Medications Generic Name Dose Route Start Last Admin Trade Name Freq PRN Reason Stop Dose Admin Aspirin 81 mg 07/17/19 09:00 07/18/19 08:14 Aspirin PO 81 mg DAILY NELL Administration Digoxin 125 mcg 07/17/19 09:00 07/18/19 08:14 Lanoxin PO 125 mcg DAILY NELL Administration Furosemide 40 mg 07/17/19 09:00 07/18/19 08:14 Lasix PO 40 mg DAILY NELL Administration Sodium Chloride 1,000 mls @ 20 mls/hr 07/16/19 21:15 07/17/19 22:32 Saline 0.9% IV Not Given .Q24H [facility] Metoprolol Succinate 100 mg 07/16/19 23:30 07/18/19 08:15 Toprol Xl PO 100 mg BID NELL Administration Miscellaneous Information 1 each 07/17/19 15:08 Coumadin Per Pharmacy MISCELLANE DIRECTED PRN Per Protocol Naloxone HCl 0.2 mg 07/16/19 21:09 Narcan IV Q2M PRN Opioid Reversal Nitroglycerin 0.4 mg 07/16/19 23:28 Nitrostat SUBLINGUAL Q5M PRN Chest Pain Pantoprazole Sodium 40 mg 07/17/19 09:00 07/18/19 08:15 Protonix PO 40 mg DAILY NELL Administration Warfarin Sodium 5 mg 07/16/19 23:30 07/16/19 23:44 Coumadin PO 5 mg [id number]@1800 [facility] Administration Warfarin Sodium 2.5 mg 07/20/19 18:00 Coumadin PO MoWeFrSa@1800 [facility] Warfarin Sodium 5 mg 07/18/19 18:00 Coumadin PO 07/18/19 18:01 ONCE@1800 ONE Intake and Output 07/17/19 07/18/19 07/18/19 22:59 06:59 14:59 Intake Total 240 360 Balance 240 360 Intake: Oral 240 360 Other: Voiding Method Toilet Toilet Toilet Weight 72 kg Patient Weight 07/19/19 06:59 Weight 72 kg 07/18/19 05:32 07/18/19 05:32 EKG Interpretations (text) Atrial fibrillation with controlled ventricular response Assessment and Plan (1) History of mitral valve repair Current Visit: Yes Status: Acute Code(s): Z98.890 - OTHER SPECIFIED POSTPROCEDURAL STATES SNOMED Code(s): 172592278 (2) Weakness Current Visit: Yes Status: Acute Code(s): R53.1 - WEAKNESS SNOMED Code(s): 10483327 (3) Afib Current Visit: No Status: Acute Code(s): I48.91 - UNSPECIFIED ATRIAL FIBRILLATION SNOMED Code(s): 64221488 (4) Coronary artery disease Current Visit: Yes Status: Acute Code(s): I25.10 - ATHSCL HEART DISEASE OF [place] CORONARY ARTERY W/O ANG PCTRS SNOMED Code(s): 62870862 Plan: Patient's vital signs are stable. She is feeling better today. No further cardiac workup at this time. May check her blood pressures for postural changes. Follow-up with the Dr. Leal upon discharge
--- NOTE | 2019-07-18 16:07 | P.PN ---
Subjective Progress Note Date: 07/18/19 Jose Crowder is an 89-year-old female patient who presented with complaints of increased weakness over the past 3 days. Patient does reports she had been falling but denies any episodes of loss of consciousness. Patient denies any specific injury to back hip or any other parts of body. Patient denies any recent illness patient does reports she's had a cough but denies any fevers nausea vomiting or diarrhea. Patient does have a past medical history of atrial fibrillation in which she is maintained on Coumadin, CHF, GERD, hyperlipidemia, hypertension and skin cancer. Patient currently lives independently. Head CT completed showing cerebral atrophy. Chronic small vessel ischemia old lacunar infarct left anterior internal capsule. No significant progression compared to old exam. Chest x-ray completed showing cardiomegaly mild atelectasis left lung base is increased compared to old exam. No heart failure. EKG completed showing sinus tachycardia with second-degree AV block with occasional premature ventricular complexes. UA negative. At this time patient denies chest pain or shortness breath. Patient denies vomiting diarrhea. Patient denies any urinary burning or frequency. PT OT and social work consulted for discharge planning. On 07/18/2019 patient was seen and examined on the telemetry floor, she is alert and oriented 3 in no apparent distress, she denies any dizziness or lightheadedness at this time, orthostatic blood pressure were checked inhalers and patient has some drop in the blood pressure when she stands up, she was evaluated by cardiology, and EKG reading was changed to atrial fibrillation was moderate ventricular response, no evidence of second-degree AV block per Dr. Silva. Objective - Vital Signs Vital signs: Vital Signs Temp 98.0 F 07/18/19 14:59 Pulse 86 07/18/19 14:59 Resp 18 07/18/19 14:59 BP 118/72 07/18/19 14:59 Pulse Ox 95 07/18/19 14:59 Intake & Output 07/17/19 07/18/19 07/18/19 18:59 06:59 18:59 Intake Total 240 360 Output Total 350 Balance 240 10 Weight 72 kg Intake: Oral 240 360 Output: Urine 350 Other: Voiding Method Toilet Toilet Toilet # Voids 1 1 - Exam In general patient is alert and oriented 3 in no apparent distress HEENT head normocephalic and atraumatic Neck is supple no JVD no goiter no lymphadenopathy Chest exam reveals a few scattered rhonchi no wheezing Cardiac exam reveals regular heart sounds no gallops no murmurs Abdomen is soft nontender no organomegaly with normal bowel sounds Extremity exam reveals no edema no cyanosis or clubbing - Labs CBC & Chem 7: 07/18/19 05:32 07/18/19 05:32 Labs: Abnormal Lab Results - Last 24 Hours (Table) 07/18/19 07/18/19 07/18/19 Range/Units 05:32 05:32 05:32 RDW 17.1 H (11.5-15.5) % PT 16.3 H (9.0-12.0) sec INR 1.6 H (<1.2) BUN 26 H (7-17) mg/dL Glucose 115 H (74-99) mg/dL AST 43 H (14-36) U/L Total Protein 5.8 L (6.3-8.2) g/dL Albumin 3.3 L (3.5-5.0) g/dL Assessment and Plan Plan: 1. Increased weakness with falls. Head CT completed showing cerebral atrophy. Chronic small vessel ischemia. 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 No significant progression compared to old exam. Patient denies any specific injuries. PT OT consulted. No signs of infection. Orthostatic blood pressures will be ordered 2. Paroxysmal atrial fibrillation maintained on Coumadin for anticoagulation. INR 1.4 3. Chronic diastolic congestive heart failure. Patient maintained on Lasix 4. History of essential hypertension 5. History of coronary artery disease with previous coronary artery bypass graft surgery 6. History of mitral valve repair 7. History of hyperlipidemia DVT prophylaxis Coumadin. GI prophylaxis Protonix PT OT consulted Social consulted for discharge planning Continue current medications at this time will discuss with cardiology any need to change blood pressure medications Possible discharge to home with daughter tomorrow
[2019-07-18] MEDS ORDERED: WARFARIN 5 MG TAB PO ONE (18:00)
[2019-07-18] MEDS: SODIUM CHLORIDE 0.9% 1,000 ML IV SCH (21:38)
[2019-07-19 06:19] LABS: Anisocytosis Slight; Basophils # (A) 0.1 k/uL (0-0.2); Basophils % (A) 1 %; Eosinophils # (A) 0.3 k/uL (0-0.7); Eosinophils % (A) 5 %; HCT 41.8 % (34.0-46.0); HGB 13.5 gm/dL (11.4-16.0); Lymphocytes # (A) 1.9 k/uL (1.0-4.8); Lymphocytes % (A) 27 %; MCH 27.3 pg (25.0-35.0); MCHC 32.2 g/dL (31.0-37.0); MCV 84.7 fL (80.0-100.0); Mean Platelet Volume 6.4; Monocytes # (A) 0.5 k/uL (0-1.0); Monocytes % (A) 6 %; Neutrophils # (A) 4.3 k/uL (1.3-7.7); Neutrophils % (A) 59 %; Platelet Count 217 k/uL (150-450); RBC 4.94 m/uL (3.80-5.40); RDW 17.1 % (11.5-15.5); WBC 7.2 k/uL (3.8-10.6)
[2019-07-19 06:24] LABS: INR 2.2 (<1.2); Prothrombin Time 21.2 sec (9.0-12.0)
[2019-07-19 06:31] LABS: Albumin 3.3 g/dL (3.5-5.0); Potassium 4.4 mmol/L (3.5-5.1); Total Bilirubin 0.5 mg/dL (0.2-1.3); Total Protein 5.8 g/dL (6.3-8.2)
[2019-07-19] MEDS: FUROSEMIDE 40 MG TAB PO SCH (08:41)
[2019-07-19] MEDS: PANTOPRAZOLE 40 MG TABLET PO SCH (08:41)
[2019-07-19] MEDS: ASPIRIN 81 MG PO SCH (08:41)
[2019-07-19] MEDS: DIGOXIN 125 MCG TAB PO SCH (08:41)
[2019-07-19] MEDS: METOPROLOL SUCCINATE (ER) 100 MG TAB.ER.24H PO SCH (08:41)
[2019-07-19 08:45] VITALS: RESP 16
--- NOTE | 2019-07-19 11:09 | P.DS ---
Providers Date of admission: 07/16/19 21:06 Expected date of discharge: 07/19/19 Attending physician: Barbara Rogers Consults: 07/17/19 15:03 Consult Physician Routine Consulting Provider: Justen Leal Consult Reason/Comments: Abnormal EKG Do you want consulting provider notified?: Yes Primary care physician: Barbarasatinder Rogers [facility] Course: Diagnoses on discharge: 1. Increased weakness with falls. Head CT completed showing cerebral atrophy. Chronic small vessel ischemia. 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 No significant progression compared to old exam. Patient denies any specific injuries. PT OT consulted. No signs of infection. Orthostatic blood pressures will be ordered 2. Paroxysmal atrial fibrillation maintained on Coumadin for anticoagulation. INR 1.4 3. Chronic diastolic congestive heart failure. Patient maintained on Lasix 4. History of essential hypertension 5. History of coronary artery disease with previous coronary artery bypass graft surgery 6. History of mitral valve repair 7. History of hyperlipidemia Hospital course: Jose Crowder is an 89-year-old female patient who presented with complaints of increased weakness over the past 3 days. Patient does reports she had been falling but denies any episodes of loss of consciousness. Patient denies any specific injury to back hip or any other parts of body. Patient denies any recent illness patient does reports she's had a cough but denies any fevers nausea vomiting or diarrhea. Patient does have a past medical history of atrial fibrillation in which she is maintained on Coumadin, CHF, GERD, hyperlipidemia, hypertension and skin cancer. Patient currently lives independently. Head CT c ompleted showing cerebral atrophy. Chronic small vessel ischemia old lacunar infarct left anterior internal capsule. No significant progression compared to old exam. Chest x-ray completed showing cardiomegaly mild atelectasis left lung base is increased compared to old exam. No heart failure. EKG completed showing sinus tachycardia with second-degree AV block with occasional premature ventricular complexes. UA negative. At this time patient denies chest pain or shortness breath. Patient denies vomiting diarrhea. Patient denies any urinary burning or frequency. PT OT and social work consulted for discharge planning. On 07/18/2019 patient was seen and examined on the telemetry floor, she is alert and oriented 3 in no apparent distress, she denies any dizziness or lightheadedness at this time, orthostatic blood pressure were checked inhalers and patient has some drop in the blood pressure when she stands up, she was evaluated by cardiology, and EKG reading was changed to atrial fibrillation was moderate ventricular response, no evidence of second-degree AV block per Dr. Silva. On 07/19/2019 patient was seen and examined on the telemetry floor she is alert and oriented 3 in no apparent distress there is no dizziness, she is able to ambulate without difficulty, she was evaluated by cardiology, no intervention or change in medication was recommended at this time, patient will be discharged home today she is going home with her daughter to [place], she will be followed in our office in one week after she is back from [place], she was encouraged to call our office if having any symptoms. Patient Condition at Discharge: Fair Plan - Discharge Summary Discharge Rx Participant: Yes New Discharge Prescriptions: Continue Omeprazole 20 mg PO DAILY Nitroglycerin Sl Tabs [Nitrostat] 0.4 mg SUBLINGUAL Q5M PRN #10 tab PRN Reason: Chest Pain Aspirin 81 mg PO DAILY #30 chew Metoprolol Succinate (ER) [Toprol XL] 100 mg PO BID #60 tab.er.24h Digoxin [Lanoxin] 125 mcg PO DAILY #1 tab Furosemide [Lasix] 40 mg PO DAILY tab Warfarin [Coumadin] 2.5 mg PO MOWEFRSA Warfarin Sodium [Coumadin] 5 mg PO SUTUTH Discharge Medication List Omeprazole 20 mg PO DAILY 01/04/18 [History] Nitroglycerin Sl Tabs [Nitrostat] 0.4 mg SUBLINGUAL Q5M PRN #10 tab 02/14/19 [Rx] Aspirin 81 mg PO DAILY #30 chew 04/09/19 [Rx] Metoprolol Succinate (ER) [Toprol XL] 100 mg PO BID #60 tab.er.24h 04/09/19 [Rx] Digoxin [Lanoxin] 125 mcg PO DAILY #1 tab 04/17/19 [Rx] Furosemide [Lasix] 40 mg PO DAILY tab 04/17/19 [Rx] Warfarin Sodium [Coumadin] 5 mg PO SUTUTH 07/16/19 [History] Warfarin [Coumadin] 2.5 mg PO MOWEFRSA 07/16/19 [History] Follow up Appointment(s)/Referral(s): Barbara Rogers MD [Primary Care Provider] - 1-2 days
[2019-07-19 11:24] VITALS: BP 142/99; PULSE 80; TEMP 97.6
[2019-07-19] MEDS: WARFARIN 5 MG TAB PO SCH (14:16)
[2019-07-20] MEDS ORDERED: WARFARIN 2.5 MG TAB PO SCH (18:00)
== END 2019-07-19 14:07 | disposition home or self-care (01) | DRG 69 ==
LOC: EC 15:31 → 4SSUR 21:06 → 3SCARD 07-17 16:30 → OBSVTOIN 07-19 10:36
PROVIDERS: ADMIT Internal Medicine; ATTEND Internal Medicine
DX: I67.82 Cerebral ischemia (principal); I50.32 Chronic diastolic (congestive) heart failure; J98.11 Atelectasis; E78.5 Hyperlipidemia, unspecified; I11.0 Hypertensive heart disease with heart failure; I25.10 Atherosclerotic heart disease of native coronary artery without angina pectoris; I44.1 Atrioventricular block, second degree; I48.0 Paroxysmal atrial fibrillation; K21.9 Gastro-esophageal reflux disease without esophagitis; R29.6 Repeated falls; Z79.01 Long term (current) use of anticoagulants; Z79.82 Long term (current) use of aspirin; Z79.899 Other long term (current) drug therapy; Z80.0 Family history of malignant neoplasm of digestive organs; Z83.3 Family history of diabetes mellitus; Z85.828 Personal history of other malignant neoplasm of skin; Z86.73 Personal history of transient ischemic attack (TIA), and cerebral infarction without residual deficits; Z90.710 Acquired absence of both cervix and uterus; Z95.1 Presence of aortocoronary bypass graft; Z95.2 Presence of prosthetic heart valve; Z87.01 Personal history of pneumonia (recurrent); M19.049 Primary osteoarthritis, unspecified hand; Z60.2 Problems related to living alone; Z82.49 Family history of ischemic heart disease and other diseases of the circulatory system
CPT/HCPCS: 36415; 70450; 71046; 80053; 81003; 83605; 83735; 83880; 84443; 84484; 85025; 85610; 85730; 87502; 93005; 96360; 96361; 99285

== ENCOUNTER → 2020-04-15 | Outpatient (CLI) | payer MEDICARE, BC ==
--- NOTE | 2020-04-15 13:26 | XR ---
EXAMINATION TYPE: XR chest 2V DATE OF EXAM: 04/15/2020 COMPARISON: Prior chest x-ray 07/16/2019 HISTORY: Dyspnea and shortness of breath TECHNIQUE: Frontal and lateral views of the chest are obtained. FINDINGS: There is no focal air space opacity, pleural effusion, or pneumothorax seen. The cardiac silhouette size is stable and enlarged. Patient is post median sternotomy. Patient is post mitral fabiano ve replacement. Aorta is dense and ectatic. There are prominent lung volumes which could be indicativ e of underlying COPD. Coronary artery calcification is present. Thoracic spondylosis is noted. There is a spinal curvature. Strand-like densities likely represents scarring in the lower left lung. The o sseous structures are intact. IMPRESSION: No acute cardiopulmonary process.
== END | disposition home or self-care (01) ==
LOC: RADXRMAIN 12:50
PROVIDERS: ATTEND Internal Medicine
DX: R06.00 Dyspnea, unspecified (principal)
CPT/HCPCS: 71046